=== PATIENT | female | born 1975 | race Caucasian/White ===

== ENCOUNTER 2017-05-20 19:30 | Inpatient (IN) | payer OTHER ==
--- NOTE | 2017-05-20 20:04 | EDPHY ---
H & P Stated Complaint: PSYCH EVAL - Personal History LMP (Females 10-55): Unknown Current Tetanus Diphtheria and Acellular Pertussis (TDAP): Yes - Medical/Surgical History Hx Asthma: No Hx Chronic Respiratory Disease: No Hx Diabetes: No Hx Cardiac Disease: No Hx Renal Disease: No Hx Cirrhosis: No Hx Alcoholism: No Hx HIV/AIDS: No Hx Splenectomy or Spleen Trauma: No Other PMH: DENIES MEDICAL, SURGICAL, AND PSYCH HX. - Social History Smoking Status: Never smoked Time Seen by Provider: 05/20/17 19:47 HPI/ROS: CHIEF COMPLAINT: M1 HISTORY OF PRESENT ILLNESS: 41-year-old female arrives via private vehicle on M1 hold after police were called to her domicile for concerns that she had not left her room in 5 days. She describes that she is currently going through divorce. She denies suicidal or homicidal ideations. Denies any desire to hurt herself or hurt her children. REVIEW OF SYSTEMS: A ten point review of systems was performed and is negative with the exception of the items mentioned in the HPI PAST MEDICAL & SURGICAL HISTORY: No history of diagnosed depression. No history of hospitalization. SOCIAL HISTORY: nonsmoker, no drug or alcohol use PHYSICAL EXAM (Prior to examination, patient consented to physical exam, hands were washed and my usual and customary physical exam procedures followed) 1) GENERAL: Well-developed, well-nourished, alert and oriented. Appears to be in no acute distress. 2) HEAD: Normocephalic, atraumatic 3) HEENT: Pupils equal, round, reactive to light bilaterally. Sclera anicteric. 4) NECK: Full range of motion, no meningeal signs. 5) LUNGS: Clear auscultation bilaterally, no wheezes, no rhonchi, no retractions. 6) HEART: Regular rate and rhythm, no murmur, no heave, no gallop. 7) ABDOMEN: No guarding, no rebound, no focal tenderness, negative McBurney's, 8) MUSCULOSKELETAL: No peripheral edema or discoloration. 9) BACK: No obvious trauma, no visual or palpable abnormality. 10) SKIN: No rash, no petechiae. 11) Psychiatric: Patient is oriented X 3, there is no agitation. DIFFERENTIAL DIAGNOSIS: In no particular order including but not limited to depression, suicidal ideation,homicidal ideation ([place]uit[place] Matias) Constitutional: Initial Vital Signs Temperature (C) 36.6 C 05/20/17 19:42 Heart Rate 143 H 05/20/17 19:42 Respiratory Rate 16 05/20/17 19:42 Blood Pressure 106/94 H 05/20/17 19:42 O2 Sat (%) 97 05/20/17 19:42 O2 Delivery Mode Room Air Allergies/Adverse Reactions: No Known Allergies Allergy (Unverified 05/20/17 19:41) Home Medications: Medication Instructions Recorded NK [No Known Home Meds] 05/20/17 Medical Decision Making ED Course/Re-evaluation: 8:06 p.m.: Patient is on M1 hold. She is noted to be tachycardic 143. She notes that she has not been drinking fluid for several days. Plan will be medical screening for psychiatric evaluation, IV hydration. 8:20 p.m.: Informed by nursing staff the patient pulled her IV out. 8:43 p.m.: I discussed with the patient her elevated BUN creatinine ratio of 36 , with normal creatinine.. She informs that she has not been drinking any fluids for the past 5 days "because I do not want to." I highly recommended she receive IV hydration. She then informs me that she is "allergic to saline". After a lengthy discussion with the patient she agrees to receive another IV and agrees not to remove the IV herself and consents to IV saline. Midnight: Care turned over to Dr. Ho, awaiting mental health evaluation ( Quita Matias Erin) 07:00 I assumed care of this patient from Dr. Ho at shift change. 07:38 Patient has been evaluated by mental health services and is accepted for inpatient treatment at [address] [place] [address] under the care of Dr. Fortune for acute psychosis. ([place]) Other Provider: [phone] care assumed by me from MIRTA Matias pending mental health evaluation ( Renato Ho) PHYSICIAN DOCUMENTATION: The patient was evaluated and managed by the Physician Duplicator Punch Operator and myself. I have reviewed the chart and agree with the findings and plan of care as documented. In addition, I examined the patient myself at 2200. History confirmed as locked in a bedroom for the last 4 days drinking water but no food , which she has calls on "ascetism procedure". Talks about how IV saline was "against my roman catholic." Physical findings as follows: Patient is currently alert , is able to answer questions. Admits to hearing voices but won't discuss details. Will get IV hydration and psychiatric evaluation, arrives on a mental health hold for question of inability to care for self. Appears to also possibly be psychotic. 2300: Signed out to Vic, psych evaluation pending. I am the secondary supervising physician. (Jed Tai) - Data Points Laboratory Results: Laboratory Results 05/20/17 20:00 05/20/17 20:00 05/20/17 05/20/17 05/20/17 20:00 20:00 20:00 WBC 13.66 10^3/uL H 10^3/uL (3.80-9.50) RBC 5.43 10^6/uL H 10^6/uL (4.18-5.33) Hgb 17.1 g/dL H g/dL (12.6-16.3) Hct 48.9 % H % (38.0-47.0) MCV 90.1 fL fL (81.5-99.8) MCH 31.5 pg pg (27.9-34.1) MCHC 35.0 g/dL g/dL (32.4-36.7) RDW 12.0 % % (11.5-15.2) Plt Count 385 10^3/uL 10^3/uL (150-400) MPV 8.9 fL fL (8.7-11.7) Neut % (Auto) 85.6 % H % (39.3-74.2) Lymph % (Auto) 8.8 % L % (15.0-45.0) Lincoln % (Auto) 4.8 % % (4.5-13.0) Eos % (Auto) 0.0 % L % (0.6-7.6) Baso % (Auto) 0.4 % % (0.3-1.7) Nucleat RBC Rel Count 0.0 % % (0.0-0.2) Absolute Neuts (auto) 11.69 10^3/uL H 10^3/uL (1.70-6.50) Absolute Lymphs (auto) 1.20 10^3/uL 10^3/uL (1.00-3.00) Absolute Monos (auto) 0.65 10^3/uL 10^3/uL (0.30-0.80) Absolute Eos (auto) 0.00 10^3/uL L 10^3/uL (0.03-0.40) Absolute Basos (auto) 0.06 10^3/uL 10^3/uL (0.02-0.10) Absolute Nucleated RBC 0.00 10^3/uL 10^3/uL (0-0.01) Immature Gran % 0.4 % % (0.0-1.1) Immature Gran # 0.06 10^3/uL 10^3/uL (0.00-0.10) Sodium 142 mEq/L mEq/L (135-145) Potassium 4.4 mEq/L mEq/L (3.5-5.2) Chloride 105 mEq/L mEq/L (97-110) Carbon Dioxide 14 mEq/l L mEq/l (22-31) Anion Gap 23 mEq/L H mEq/L (8-16) BUN 29 mg/dL H mg/dL (7-23) Creatinine 0.8 mg/dL mg/dL (0.6-1.0) Estimated GFR > 60 Glucose 96 mg/dL mg/dL (70-100) Calcium 10.4 mg/dL mg/dL (8.5-10.4) Beta HCG, Qual NEGATIVE Salicylates < 1.0 mg/dL L mg/dL (2.0-20.0) Urine Opiates Screen Acetaminophen < 10 mcg/mL L mcg/mL (10-30) Urine Barbiturates Ur Phencyclidine Scrn Ur Amphetamine Screen U Benzodiazepines Scrn Urine Cocaine Screen U Marijuana (THC) Screen Ethyl Alcohol < 10 mg/dL mg/dL (0-10) 05/20/17 19:34 WBC RBC Hgb Hct MCV MCH MCHC RDW Plt Count MPV Neut % (Auto) Lymph % (Auto) Lincoln % (Auto) Eos % (Auto) Baso % (Auto) Nucleat RBC Rel Count Absolute Neuts (auto) Absolute Lymphs (auto) Absolute Monos (auto) Absolute Eos (auto) Absolute Basos (auto) Absolute Nucleated RBC Immature Gran % Immature Gran # Sodium Potassium Chloride Carbon Dioxide Anion Gap BUN Creatinine Estimated GFR Glucose Calcium Beta HCG, Qual Salicylates Urine Opiates Screen NEGATIVE (NEGATIVE) Acetaminophen Urine Barbiturates NEGATIVE (NEGATIVE) Ur Phencyclidine Scrn NEGATIVE (NEGATIVE) Ur Amphetamine Screen NEGATIVE (NEGATIVE) U Benzodiazepines Scrn NEGATIVE (NEGATIVE) Urine Cocaine Screen NEGATIVE (NEGATIVE) U Marijuana (THC) Screen NEGATIVE (NEGATIVE) Ethyl Alcohol Medications Given: Discontinued Medications Sodium Chloride (Ns) 1,000 mls @ 0 mls/hr IV ONCE ONE PRN Reason: Wide Open Stop: 05/20/17 20:05 Last Admin: 05/20/17 21:04 Dose: 1,000 mls Sodium Chloride (Ns) 1,000 mls @ 0 mls/hr IV ONCE ONE PRN Reason: Wide Open Stop: 05/20/17 20:08 Last Admin: 05/20/17 20:23 Dose: Not Given Departure - Departure Disposition: [facility] IP Clinical Impression: Volume depletion, Acute psychosis Condition: Good Referrals: NONE *PRIMARY CARE P,. [Primary Care Provider] - As per Instructions
[2017-05-20] MEDS ORDERED: NS 1,000 ML IV ONE (20:07)
[2017-05-20 20:20] LABS: PLATELET COUNT 385 10^3/uL (150-400)
[2017-05-20] MEDS: NS 1,000 ML IV ONE ×3 (20:23→21:04)
[2017-05-21] MEDS ORDERED: OLANZapine DISINTEGR 10 MG TAB PO PRN (10:26)
[2017-05-21] MEDS ORDERED: MAGNESIUM HYDROXIDE 30 ML UDCUP PO PRN (10:26)
[2017-05-21] MEDS ORDERED: ACETAMINOPHEN 325 MG TAB PO PRN (10:26)
[2017-05-21] MEDS ORDERED: MAG HYDROX/AL HYDROX/SIMETH 30 ML UDCUP PO PRN (10:26)
[2017-05-21] MEDS ORDERED: LORazepam 0.5 MG TAB PO PRN (10:26)
[2017-05-21] MEDS ORDERED: OLANZapine 10 MG/2 ML VIAL IM PRN (11:35)
[2017-05-21] MEDS ORDERED: LORazepam 2 MG/ML INJ IM PRN (11:35)
[2017-05-21] MEDS ORDERED: OLANZapine 2.5 MG TAB PO SCH (11:45)
--- NOTE | 2017-05-21 12:40 | BAPA ---
[f rep st] ADMISSION PSYCHIATRIC ASSESSMENT IDENTIFICATION: This is a 41-year-old white female who lives with a roommate. She has partial custody of 2 children with her estranged . 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 CHIEF COMPLAINT: "I'm on a spiritual aescetic procedure." HISTORY OF PRESENT ILLNESS: The patient is a poor historian. Per the report from the emergency department, the patient apparently had asked her estranged to care for their 2 children over the weekend, even though it was her turn to care for the children over the weekend. The patient apparently was locked in her room, had not been eating or drinking for 4 days, had not been sleeping, had been doing strange exercises in her room, had been urinating in a jar and acting bizarre. The patient in the emergency room was placed on an M1 hold and admitted to the inpatient unit for grave disability. The patient in the ER was found to have signs of dehydration with a rapid heart rate of 143. There, she had a strange affect and pulled out her IV initially and made strange statements, but then later got IV fluids. The patient reports that she was working up until last week. She then decided to stop eating and drinking and felt that she could go 1 week without eating or drinking. She reports the purpose of this is "to clear my mind so I have clear thoughts." She describes that she is on a mission from God to do this. She would not give further details about it. She denies any plans to hurt herself or others. She reports not sleeping at all at night, or only sleeping 1-2 hours or the past week. She is guarded and not explaining why she is fasting and not drinking fluids 'it is a personal matter.' She denies feeling depressed, hopeless, or sad. She does report racing thoughts. She does report feeling anxious at times. She reports many years ago in her 20s having symptoms of depression and getting counseling. She does report over the past 20 years having episodes of elevated energy and activity and decreased need for sleep lasting weeks at a time, but without severe functional impairment and without grandiosity, hypersexuality, or reckless spending. However, the patient reports that she has been very yarsani over the past few months and been preoccupied with spiritual matters and not eating and drinking at all over the past 4-5 days. The report from the emergency room is that the patient's estranged reported the patient had been hyperreligious since December and acting strange and irrational. The patient denies any drug or alcohol abuse. She denies any thoughts to hurt others. She reports that her is caring for her 2 children. The Emergency Department contacted the patients last night. She denies a fear of weight gain, a fear of being overweight, or recently exercising excessively. Denies abusing laxatives or diuretics or forced vomitting. Reports a preoccupation with not eating. PAST PSYCHIATRIC HISTORY: The patient denies any past psychiatric hospitalizations. She denies any past suicide attempts or violence toward others. She denies any history of drug or alcohol addiction. She denies any past psychiatric medication trials. She reports getting counseling in her 20s for depression. ALLERGIES: No known drug allergies. PRIMARY CARE DOCTOR: None. PAST MEDICAL HISTORY: She does report that she was using condoms for control last year, but is not sexually active and has no plans for . She denies any chronic medical problems. She denies any traumatic brain injuries or seizures. She reports a history of surgery on her right knee. MEDICATIONS: None FAMILY HISTORY: She reports her younger sister has bipolar disorder. She denies any family history of suicide or substance abuse. She reports her parents are in [place] and they are alive and well. SOCIAL HISTORY: She was born and raised in [place] and emigrated to the [place] 4 years ago. 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 She lives with a roommate and is estranged from her . She and her have joint custody for 2 children, ages 4 and 6. The patient denies any history of childhood abuse or neglect or any trauma as an adult. She graduated high school, graduated from college, and has a PhD in chemical engineering. She reports her parents and her sister are currently in [place]. VITAL SIGNS: She is 167 cm, 51.7 kg, with a BMI of 18.4, which is underweight. In the emergency room, she had a heart rate of 143 prior to receiving 2 L of IV fluids. This morning, her blood pressure was 113/58, heart rate 86, respiratory rate 16, pulse ox 95% on room air, temperature is afebrile. EXAMINATION: She is a thin white female, in a gown. She is ambulatory. She has good eye contact. She has odd smiling and laughing at times. She has some internal preoccupation. She appears anxious at times. Her speech is regular rate and rhythm with a soft voice but she has minimal speech with only a few words at a time. Other times she has briefly rapid speech. Her thoughts are illogical and somewhat disorganized at times. She is a poor historian. She does report possibly getting a message from God. She denies that this is an auditory hallucination, but describes "it's a vibration." She appears to be delusional and that she can go a week without eating or drinking at all. She is unable to explain the purpose of this, but she reports her plan is to continue not eating and drinking for at least another 5 days. She denies suicidal or homicidal thoughts. She denies a fear of weight gain, a fear of being overweight, or recently exercising excessively. Her insight is poor. Her judgment appears impaired. She has intact cognition. She is oriented to May [id number]. She knows that she is in [place], the president is [email or web address]. She is able to do serial 7 subtractions. Her clock drawing is normal. ASSESSMENT: Bipolar disorder, type 1, most recent episode manic, severe, with psychotic features, Unspecified eating disorder - possible Anorexia Nervosa Rule out brief psychotic disorder Partner Relationship Problem - from Employment problems - missed work for 4 days due to mental illness. The overall assessment is the patient appears gravely disabled with illogical thinking and recent episode of not eating or drinking, not leaving her room, not sleeping, and urinating in a jar for 4 days. This is a major deterioration and the patient has been unable to work at all this week due to these symptoms or care for her children. The patient also appears to be at risk for dehydration and malnutrition. She had a rapid heart rate of 143 in the emergency department with signs of dehydration and required intravenous fluids. The patient has poor insight and has illogical thinking. She does appear to have some grandiosity that she is on a mission from God to not eat or drink. PLAN: 1. The patient is on an emergency M1 hold for grave disability, dated May, dated 1927 as the time. 2. The patient will be on 15-minute checks for safety precautions on the unit. 3. Requested that the nursing staff document her total p.o. fluid intake to monitor for risk of dehydration. 4. We will check vital signs twice a day to monitor for symptoms of dehydration. 5. Add on ALT, AST, CK, hemoglobin A1c, lipid panel, magnesium, phosphorus, and TSH to the blood work from the emergency room to rule out medical conditions contributing to her symptoms. 6. I discussed with the patient the risks and benefits of taking psychiatric medications for bipolar disorder in order to sleep at night and have a more clear thought process. The patient is not agreeing to take psychiatric medications at this time. Therefore, we will start emergency medications this morning. We will start offering olanzapine 2.5 mg p.o. b.i.d. If either of these doses are refused she will get olanzapine intramuscular injection 2.5 mg IM. The patient is also ordered lorazepam 1 mg t.i.d. p.r.n. for severe anxiety on the unit as an emergency medication if refusing oral lorazepam p.r.n. for anxiety. If the patient does not eat lunch today, we will discuss with the nursing staff possibly giving the patient a lorazepam injection prior to dinner. 7. We will request that the care attendant outreach the patient's estranged for collateral information and clarify that the patient's children are being taken care of. 8. The patient does not currently have an outpatient primary care doctor or psychiatrist. During the course of the hospitalization we will arrange for medical and psychiatric followup prior to discharge. /[id number]/MODL MTDD
[2017-05-21 14:23] LABS: CREATINE KINASE 97 IU/L (0-156)
--- NOTE | 2017-05-21 16:21 | BCON ---
[f rep st] BEHAVIORAL HEALTH CONSULTATION INTERNAL MEDICINE CONSULTATION DATE OF CONSULTATION: 05/21/2017 REFERRING PHYSICIAN: Rodrigo Fortune MD REASON FOR REFERRAL: Medical clearance for inpatient behavioral health stay. HISTORY OF PRESENT ILLNESS: This patient came to the emergency department yesterday on an M1 hold after police were called to her home for concerns that she had not been eating or drinking, and not left her room for 5 days. In the emergency department, she appeared to be psychotic. She was evaluated by the mental health team and admitted for further psychiatric care. Laboratory evaluation in the emergency department was also consistent with significant dehydration with a BUN of 29 and a creatinine of 0.8, and as well, she had an anion gap of 23. She received IV fluids, per report, 2 L in the emergency department. She currently is without any acute complaint, but she has an altered level of consciousness. Per Nursing, she received 2.5 mg of olanzapine approximately half an hour ago. PAST MEDICAL HISTORY: She does not have a history of medical illnesses. PAST SURGICAL HISTORY: She has had right knee surgery. MEDICATIONS: She was on no medications. SOCIAL HISTORY: She is from her and in the process of a divorce. She lives with a roommate. 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 FAMILY HISTORY: Unobtainable. REVIEW OF SYSTEMS: Very limited. She denies pain, cough, dyspnea, fevers or chills, but otherwise is uncooperative with review of systems. PHYSICAL EXAM: VITAL SIGNS: Blood pressure is 113/58, heart rate is 86, respiratory rate is 16, oxygen saturation is 95% on room air, temperature is 36.8 degrees centigrade. Her weight is 51.7 for a body mass index of 18.4. GENERAL: This is a very thin woman, appears her chronologic age, dressed in a green smock, sitting in a chair. During the exam, she sits straight up and then slumps forward in the chair, and then lowers herself to the ground and lies on the ground. With the assistance of nurse, she is transferred to the bed and she is largely unresponsive, but intermittently cooperative with requests during exam. HEENT: Extraocular movements are intact. Mucous membranes are moist. Dentition is in good condition. NECK: Supple. HEART: Regular rate and rhythm with no murmurs, rubs, or gallops. LUNGS: Clear to auscultation bilaterally. ABDOMEN: Benign. EXTREMITIES: There is no cyanosis , clubbing, or edema. Radial and dorsalis pedis pulses are diminished. NEUROLOGIC: She is intermittently alert and obtunded. She is able to move all extremities. Deep tendon reflexes are 2+ bilaterally at the biceps, patellae, and Achilles tendons. There is no tremor. There are no convulsions. There appears to be no loss of bowel or bladder control. LABORATORY STUDIES: From the emergency department, CBC revealed an elevated white count of 13.66 with no left shift. It was predominantly absolute neutrophils at 11.69. She was hemoconcentrated with an elevated hemoglobin and hematocrit at 17.1 and 48.9. CBC was otherwise overall within normal limits. Serum chemistry revealed an anion gap of 23, an elevated BUN of 29 with a creatinine of 0.8. Otherwise, renal function and electrolytes were overall within normal limits. Phosphorus was slightly high at 4.6. Hemoglobin A1c was 4.7. Liver functions were normal. Lipid panel showed a cholesterol of 195 with an HDL of 75. TSH was normal. Beta hCG was negative for . Toxicology screen in the serum was negative for salicylates, acetaminophen or ethyl alcohol, and the urine was negative for any substances of abuse. ASSESSMENT/RECOMMENDATIONS: 1. Mental health issues, pending further evaluation and management per Psychiatry and the mental health team. 2. Obtundation versus noncooperation. She seems to be more obtunded than one would expect from a small single dose of olanzapine. 3. Dehydration. 4. Anion gap, possibly starvation ketosis. I have ordered a stat CBC and BMP to reassess regarding hydration state and to rule out any possible infectious or metabolic contribution towards her altered mental status. Presentation is not consistent with seizures or meningitis/ encephalitis at present. Advise continued observation and if her mental status does not improve as would be expected with treatment of her psychiatric state, then further evaluation would be indicated. At present, I see no medical contraindications to this patient's continued stay on the inpatient behavioral health unit or to any psychiatric medications or procedures. Thank you very much for including me in the care of this patient and please do not hesitate to contact me or the hospitalist service should there be need for further medical evaluation. /[id number]/MODL MTDD
--- NOTE | 2017-05-21 17:32 | SOAPPROG ---
SOAP Progress Note Assessment/Plan: Assessment: Bipolar Disorder Manic with psychotic and catatonic features Grave Disability - patient reported not eating/drinking for several days prior to admission. Call from unit nurse on 3N, reports patient having episodic mutism and worsening disorganization. Patient received Olanzapine 2.5mg earlier without clear benefit. Concern for catatonia spectrum disorder. Plan: Patient on M-1 hold Discontinue Olanzapine EMED EMED: Ativan 1mg PO/IM TID prior to meals Monitor PO fluid intake Patient seen by hospitalist, repeat BMP ordered Consider transfer to [facility] tomorrow if signs/symptoms dehydration 05/21/17 17:27 Objective: Vital Signs Temp Pulse Resp BP Pulse Ox 36.8 C 86 16 113/58 L 95 05/21/17 09:10 05/21/17 09:10 05/21/17 09:10 05/21/17 09:10 05/21/17 09:10 - Pending Discharge Pending Discharge Within 24 Hours: No Pending Discharge Within 48 Hours: No ICD10 Worksheet Patient Problems: Problems Problem Status Onset Acute psychosis Acute Bipolar disorder, unspecified Acute Dehydration Acute Eating disorder Acute Volume depletion Acute
[2017-05-21] MEDS: LORazepam 0.5 MG TAB PO SCH (17:53)
[2017-05-21 19:14] LABS: PLATELET COUNT 262 10^3/uL (150-400)
[2017-05-22] MEDS ORDERED: LORazepam 1 MG TAB PO SCH (08:00)
[2017-05-22] MEDS ORDERED: LORazepam 2 MG/ML INJ IM SCH (08:00)
--- NOTE | 2017-05-22 08:07 | SOAPPROG ---
SOAP Progress Note Assessment/Plan: Assessment: Catatonia Bipolar Disorder Manic with psychotic features Low weight Grave Disability - patient reported not eating/drinking for several days prior to admission. Patient has a family history of bipolar disorder, history of depression, probable hypomanic and hyperreligious symptoms in past few months, was not eating or drinking fluids or sleeping for several days with disorganized behavior prior to admission. Patient had catatonic symptoms after receiving Olanzapine 2.5mg on 05/21/17. Patient now able to sleep after receiving IM Ativan in PM 05/21/17 on [facility] and this AM 05/22/17 in [facility] ER Plan: Short Term Certification for grave disability. If having improved insight and self-care will discuss voluntary treatment EMED DAY #2 Ativan 2mg PO/IM TID with meals Urinalysis to rule out UTI (elevated WBC and incontinence), straight cath with medical restraint if needed due to altered mental status Monitor PO fluid intake Consider transfer to [facility] tomorrow if signs/symptoms dehydration 05/22/17 08:03 Subjective: CC: Nonverbal. Patient sleeping and not awake for verbal and tactile stimuli. Objective: Vital Signs Temp Pulse Resp BP Pulse Ox 36.8 C 86 16 113/58 L 95 05/21/17 09:10 05/21/17 09:10 05/21/17 09:10 05/21/17 09:10 05/21/17 09:10 Laboratory Results 05/21/17 17:30 05/21/17 17:30 05/21/17 05/22/17 05/23/17 05:59 05:59 05:59 Intake Total 0 Balance 0 Patient is thin lying in bed, sleeping soundly. Not waking to verbal or mild tactile stimuli. Staff report patient received Olanzapine 2.5mg PO yesterday afternoon. Later was mute, catatonia, posturing in corner, disorganized behavior. Later got follow up CBC (elevated WBC 15), BMP with elevated BUN and acidosis. Got IM Ativan yesterday PM with minimal improvement. Later found lying on floor unresponsive early this AM and was sent to ER. There had Head CT, 2 liters IVF , and Ativan 1mg IM, and readmitted to [facility]. - Time Spent With Patient Time Spent With Patient: 5 minutes - Pending Discharge Pending Discharge Within 24 Hours: No Pending Discharge Within 48 Hours: No ICD10 Worksheet Patient Problems: Problems Problem Status Onset Acute psychosis Acute Bipolar disorder, unspecified Acute Dehydration Acute Eating disorder Acute Volume depletion Acute Catatonia Acute
[2017-05-22 08:17] VITALS: BP 106/64; PULSE 70; RESP 14; TEMP 97.7; O2SAT 98
[2017-05-22] MEDS: LORazepam 0.5 MG TAB PO SCH (08:50)
--- NOTE | 2017-05-22 15:01 | BDS ---
[f rep st] BEHAVIORAL HEALTH DISCHARGE SUMMARY IDENTIFICATION: This is a 41-year-old white female who lives with a roommate. 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 She is originally from [facility]. She is currently from her , [place] Ramos who is currently caring for the patient's 2 children, ages 4 and 6. Her brother from [place] arrived in [place] after the patient was hospitalized. REASON FOR ADMISSION: Please see psychiatric assessment from yesterday, May 21, 2017. The patient apparently has a history of having depressive and hypomanic symptoms in the past. She and her in December 2016 and are in the process of a divorce that is supposed to be finalized at the end of May. The patient apparently has been having hypomanic symptoms with erratic behavior and hyperreligious behavior. 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 The patient apparently was taken to the emergency room on May 20 because between Thursday and May 20, the patient apparently did not sleep at all, was not eating, not drinking, isolating to her room, and acting bizarre. In the ER the evening of May 20, the patient was disorganized, pulled out IV, was tachycardic with a heart rate of 143. She later got 2 L of fluid IV. The patient then was admitted to the unit the morning of May 21. The patient then presented as being hypomanic but disorganized and a poor historian with delusions that she could not either or drink for a week as a mission from God. She had an initially euphoric and odd affect and strange smiling. She was initially ambulatory but thin. She had poverty of information with her speech. She had disorganized behavior on the unit including gathering up numerous belongings and putting them in trash cans. She also refused to eat or drink on the unit. The patient was initially offered 2.5 mg of olanzapine as an emergency medication due to grave disability from mental illness causing inability to eat or drink. The patient was given 2.5 mg of olanzapine the afternoon of May 21. Approximately 2 hours later the staff reported that the patient had developed catatonic symptoms where she was mute, staring, unresponsive, later was crouched in a corner, staring at the wall and not following directions. The patient had a physical exam by the hospitalist, had a followup blood work for dehydration that showed continued elevated BUN with a mild acidosis, but a normal sodium level. The patient was given IM Ativan 1 mg with no improvement. Later in the evening, she was found to be lying on the floor unresponsive to sternal rub and mute. She was then sent back to the [facility] Emergency Department in the early hours of May 22. There, she got another 2 L of IV fluids, 1 mg of Ativan and then returned to [address] [place] [address]. Between arriving on [address] [place] [address] this morning at 8 a.m. at approximately 11:30 today, the patient continued to be completely mute, unable to eat or drink, unable to stand, unable to follow simple directions. She also appeared to have some flushing and sweating concerning either for infection or neuroleptic malignant syndrome. The patient due to the severity of her symptoms and lack of improvement with at least 2 mg of IM Ativan in a 12 hour period and concern of severe catatonia versus delirium from an infection, the patient was transferred back to the [facility] Emergency Department. There was concern that she may have an infection as she has an elevated white blood cell count, however, this may be just secondary to catatonia. CONDITION ON DISCHARGE: She is a thin white female lying in bed. She appears flushed and slightly sweaty. She is unresponsive and mute. She is not able to stand, eat or drink. Unable to assess thought content. DISCHARGE DIAGNOSES: Catatonia, unspecified bipolar disorder, rule out delirium from medical condition such as an infection. Also, dehydration, elevated white blood cell count, acidosis. DISCHARGE MEDICATIONS: I recommended to ER physician Dr. Buenrostro that the patient will need IV fluids for dehydration along with IV lorazepam 1 mg q.6 hours for a total of 4 mg a day of IV lorazepam. If the patient does not have an IV she could be offered 2 mg p.o. or IM three times daily with meals. We also recommended the patient have an evaluation for infection such as urinary tract infection or a neurology evaluation to rule out encephalitis. DISPOSITION: The patient is being transferred by ambulance to [facility] Emergency Department for probable admission to the intensive care unit at [facility]. LEGAL STATUS: The patient was on an M1 hold and then placed on short-term certification today May 22, 2017. This was discussed with consult psychiatrist Dr. Ramos. /[id number]/MODL MTDD
== END 2017-05-22 11:50 | disposition short-term general hospital (02) | DRG 885 ==
LOC: BBEH 05-21 09:05
PROVIDERS: ADMIT Psychiatry & Neurology Psychiatry
DX: F31.2 Bipolar disorder, current episode manic severe with psychotic features (principal); F06.1 Catatonic disorder due to known physiological condition; E86.0 Dehydration; D72.828 Other elevated white blood cell count; E87.2 Acidosis; F50.9 Eating disorder, unspecified; Z81.8 Family history of other mental and behavioral disorders; Z63.5 Disruption of family by separation and divorce
CPT/HCPCS: 80305; G0480; J2060

== ENCOUNTER 2017-05-22 01:58 | Inpatient (IN) | payer OTHER ==
[2017-05-22] MEDS ORDERED: AMMONIA AROMATIC 1 EACH AMP IH ONE (02:03)
--- NOTE | 2017-05-22 02:14 | EDPHY ---
H & P Stated Complaint: patient @ [facility] for mental health issues. patient in a unresponive state. Time Seen by Provider: 05/22/17 02:04 HPI/ROS: Chief Complaint: Unresponsive HPI: 41-year-old woman who is at [address] [place] [address] for depression. She was admitted there today. Patient had locked herself in the bathroom for 4 days , refusing to eat or drink. Patient was found on the floor unresponsive this morning and sent here for further evaluation. Patient is breathing on her own. No obvious signs of trauma. She is not answering any questions. ROS: Unobtainable secondary to patient being unresponsive PMH: Depression Social History: No smoking, no alcohol, no recreational drug use Family History: non-contributory Physical Exam: Gen: Appears to be unconscious. She is wincing to ammonia tablets under her nose. She is not localizing to pain however her hand does not hit her face when dropped from above. HEENT: Nose: no rhinorrhea Eyes: PERRLA, EOMI Mouth: Moist mucosa Neck: Supple, no JVD Chest: nontender, lungs clear to auscultation Heart: S1, S2 normal, no murmur Abd: Soft, non-tender, no guarding Back: no CVA tenderness, no midline tenderness Ext: no edema, non-tender Skin: no rash Neuro: CN II-XII intact, Sensation grossly intact, Strength 5/5 in bilateral upper and lower extremities - Personal History LMP (Females 10-55): Unknown Current Tetanus/Diphtheria Vaccine: Unsure Current Tetanus Diphtheria and Acellular Pertussis (TDAP): Unsure - Medical/Surgical History Hx Asthma: No Hx Chronic Respiratory Disease: No Hx Diabetes: No Hx Cardiac Disease: No Hx Renal Disease: No Hx Cirrhosis: No Hx Alcoholism: No Hx HIV/AIDS: No Hx Splenectomy or Spleen Trauma: No Other PMH: DENIES MEDICAL, SURGICAL, AND PSYCH HX. - Social History Smoking Status: Never smoked Constitutional: Initial Vital Signs Temperature (C) 37.1 C 05/22/17 02:02 Heart Rate 87 05/22/17 02:02 Respiratory Rate 16 05/22/17 02:02 Blood Pressure 120/77 05/22/17 02:02 O2 Sat (%) 99 05/22/17 02:02 O2 Delivery Mode Room Air Allergies/Adverse Reactions: No Known Allergies Allergy (Unverified 05/20/17 19:41) Home Medications: Medication Instructions Recorded NK [No Known Home Meds] 05/20/17 Medical Decision Making - Diagnostics Imaging Results: CT scan of the head is negative per Dr. Pineda. Imaging: Discussed imaging studies w/ call center operator Radiologist ED Course/Re-evaluation: 41-year-old woman presenting from the psychiatric loera unresponsive. No obvious signs of trauma. She is wincing to noxious stimuli of ammonia under her nose. She is also observed to swallow on occasion. She will not answer any questions or speak. Will obtain a CT scan to rule out any obvious intracranial pathology. Patient appears catatonic. She has a flaccid paralysis. Could be described as "waxy". She does not have a lead pipe rigidity. She is responding to noxious stimuli. She is not febrile. I have discussed the case with Dr. Ramos, psychiatry. She is requesting IV fluid hydration as the patient has not been drinking. This has been ordered. She is also requesting Ativan, 1 mg IM. She has reviewed the patient's record in the psychiatric admission and is in agreement that symptoms are consistent with catatonia. She is accepting the patient transfer back to the [address] [place] [address] at this time. - Data Points Laboratory Results: Laboratory Results 05/22/17 03:15 05/22/17 03:15 05/22/17 05/22/17 03:15 03:15 WBC 11.79 10^3/uL H 10^3/uL (3.80-9.50) RBC 4.08 10^6/uL L 10^6/uL (4.18-5.33) Hgb 13.0 g/dL g/dL (12.6-16.3) Hct 37.6 % L % (38.0-47.0) MCV 92.2 fL fL (81.5-99.8) MCH 31.9 pg pg (27.9-34.1) MCHC 34.6 g/dL g/dL (32.4-36.7) RDW 12.2 % % (11.5-15.2) Plt Count 204 10^3/uL D 10^3/uL (150-400) MPV 8.9 fL fL (8.7-11.7) Neut % (Auto) 77.8 % H % (39.3-74.2) Lymph % (Auto) 11.3 % L % (15.0-45.0) [place] % (Auto) 10.1 % % (4.5-13.0) Eos % (Auto) 0.2 % L % (0.6-7.6) Baso % (Auto) 0.3 % % (0.3-1.7) Nucleat RBC Rel Count 0.0 % % (0.0-0.2) Absolute Neuts (auto) 9.18 10^3/uL H 10^3/uL (1.70-6.50) Absolute Lymphs (auto) 1.33 10^3/uL 10^3/uL (1.00-3.00) Absolute Monos (auto) 1.19 10^3/uL H 10^3/uL (0.30-0.80) Absolute Eos (auto) 0.02 10^3/uL L 10^3/uL (0.03-0.40) Absolute Basos (auto) 0.03 10^3/uL 10^3/uL (0.02-0.10) Absolute Nucleated RBC 0.00 10^3/uL 10^3/uL (0-0.01) Immature Gran % 0.3 % % (0.0-1.1) Immature Gran # 0.04 10^3/uL 10^3/uL (0.00-0.10) Sodium 146 mEq/L H mEq/L (135-145) Potassium 4.7 mEq/L mEq/L (3.5-5.2) Chloride 114 mEq/L H mEq/L (97-110) Carbon Dioxide 20 mEq/l L mEq/l (22-31) Anion Gap 12 mEq/L mEq/L (8-16) BUN 27 mg/dL H mg/dL (7-23) Creatinine 0.6 mg/dL mg/dL (0.6-1.0) Estimated GFR > 60 Glucose 72 mg/dL mg/dL (70-100) Calcium 8.5 mg/dL mg/dL (8.5-10.4) Total Bilirubin 1.5 mg/dL H mg/dL (0.1-1.4) Conjugated Bilirubin 0.4 mg/dL mg/dL (0.0-0.5) Unconjugated Bilirubin 1.1 mg/dL mg/dL (0.0-1.1) AST 33 IU/L IU/L (14-46) ALT 27 IU/L IU/L (9-52) Alkaline Phosphatase 39 IU/L IU/L (38-126) Total Protein 6.0 g/dL L g/dL (6.3-8.2) Albumin 3.6 g/dL g/dL (3.5-5.0) Medications Given: Discontinued Medications Sodium Chloride (Ns) 1,000 mls @ 0 mls/hr IV ONCE ONE; Wide Open PRN Reason: Protocol Stop: 05/22/17 04:11 Last Admin: 05/22/17 04:15 Dose: 1,000 mls Sodium Chloride (Ns) 1,000 mls @ 0 mls/hr IV ONCE ONE; Wide Open PRN Reason: Protocol Stop: 05/22/17 04:58 Last Admin: 05/22/17 05:06 Dose: 1,000 mls Lorazepam (Ativan Injection) 1 mg IM EDNOW ONE Stop: 05/22/17 04:54 Last Admin: 05/22/17 05:06 Dose: 1 mg Departure - Departure Disposition: [facility] IP Clinical Impression: Catatonia Condition: Good Referrals: Patient,NotPresent [Primary Care Provider] - As per Instructions
[2017-05-22 03:23] LABS: PLATELET COUNT 204 10^3/uL (150-400)
[2017-05-22] MEDS ORDERED: NS 1,000 ML IV ONE ×2 (04:10→04:57)
[2017-05-22] MEDS ORDERED: LORazepam 2 MG/ML INJ IM ONE (04:53)
[2017-05-24] MEDS: LORazepam 0.5 MG TAB PO SCH (20:57)
[2017-05-25] MEDS: LORazepam 0.5 MG TAB PO SCH ×4 (06:04→20:45)
[2017-05-25] MEDS ORDERED: LORazepam 2 MG/ML INJ IM PRN (07:42)
[2017-05-25 08:17] LABS: CREATINE KINASE 361 IU/L (0-156)
--- NOTE | 2017-05-25 10:06 | BAPA ---
[f rep st] ADMISSION PSYCHIATRIC ASSESSMENT DATE OF SERVICE: 05/25/2017 IDENTIFICATION: This is a 41-year-old, , white female, who alternatively lives with her , Hitesh Dotson, phone number [phone], or with her friend, Mirna Perez, phone number [phone]. The patient's brother Naveen lives in [place], phone number [phone]. CHIEF COMPLAINT: "I am good, how are you?" HISTORY OF PRESENT ILLNESS: The patient is a poor historian with limited information. She currently denies feeling depressed, hopeless, sad, or suicidal. She denies feeling agitated, irritable or anxious. She denies hearing voices or having paranoia. She recognizes that she needs to be eating and drinking in order to get discharged from the hospital. She is unable to explain the events that led to her hospitalization. She reports not wanting to be in the hospital or take medication however. Per the chart from her admission last week and [facility], as well as discussion with the patient's , Hitesh, the patient apparently had a history of change in symptoms and behavior over the past 6 months to 9 months. The patient has been more anxious, spending more time at work, having more difficulty sleeping. Apparently in December 2016, she developed hyper yarsanism thoughts that she was on a mission from God to have a child and save the world. She also had a change in personality. This led to a separation where she was spending part of the time with her and their 2 children, and part of the time staying with her friend, Mirna. The patient apparently, prior to the emergency room visit on May 20, apparently she had gone several days staying in her room, not sleeping, not eating, not drinking fluids and acting strange. The patient was evaluated on the inpatient unit on May 21. At that time, she reported having a special connection from God, being on a special mission to not eat or drink for at least a week. She also had an odd euphoric affect with poor insight, and seemed illogical and had disorganized behavior. She was started on olanzapine 2.5 mg on May 21, and was on an M1 hold. On May 22, the patient had catatonic symptoms with mutism and unresponsiveness. She was placed on a short-term certification and then transferred back to [facility] to the Emergency Department. There she was then admitted to the intensive care unit for management of dehydration and catatonia. Over the weekend of Thursday, May 22; Thursday, May 23; and then Thursday, May 24; the patient received IV fluids for dehydration. She received lorazepam 1 mg IV 4 times a day for catatonia. The patient's dehydration was treated. The patient's catatonia improved. The patient was then alert and able to converse. She did report over at [facility] that she continued to have a voice from God telling her not to eat. She also made strange statements or paranoid statements about having cancer. She also reportedly superficially cut her left arm with a butter knife. The patient was then transferred back to [address] [place] [address] yes, May 24. Last night she reportedly drank 1500cc of fluid and ate an orange and an apple. This morning, the patient has poor insight into the reasons for hospitalization. She is able to explain that she needs to eat and drink in order to be discharged from the hospital. She denies auditory hallucinations or paranoia about her body currently. PAST PSYCHIATRIC HISTORY: The patient had no prior psychiatric hospitalizations before last week. She did apparently have counseling for depression in her 20s. Her reports that the patient has had brief intense mood swings but not sustained meeting criteria for bipolar disorder. She does appear to have developed odd beliefs that started in December 2016 that appear to be grandiose and delusional. The patient has no history of drug or alcohol abuse, suicide attempts or violence toward others. ALLERGIES: No known drug allergies. MEDICAL HISTORY: She has a history of having surgery on her right knee. She denies any traumatic brain injury or seizures or any chronic medical problems or taking any medications prior to admission. MEDICATIONS: Currently, Ativan 1 mg by mouth 4 times a day. She was receiving Ativan 1 mg IV 4 times a day in the intensive care unit over the past few days, along with IV fluids. FAMILY HISTORY: Her younger sister has bipolar disorder. Her parents are in [place] and are alive and well. She denies a family history of suicide or substance abuse. SOCIAL HISTORY: She was born and raised in [place] and immigrated to the [place] several years ago. 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 She is currently estranged from her , Hitesh Dotson, phone number [phone]. They have 2 children, ages 4 and 6. He is currently caring for them. The patient has alternatively been staying with him or staying with her friend, Mirna Perez, who also works in the same lab as her. The patient reports her parents and her sister are in [place]. She denies childhood abuse or neglect or any history of trauma. VITAL SIGNS: She is 167 cm, 50.8 kg with a BMI of 18.1. This morning her vital signs; blood pressure 92/50, heart rate 93, respiratory rate 16, pulse ox 91% on room air. She is afebrile. LABS: On May 24, 2017, she had a white blood cell count 5.6, hemoglobin 12.8 , platelet count 195. Sodium 139, potassium 3.9, creatinine 0.5, glucose 115, but she may have been on IV dextrose at the time. Hemoglobin A1c was 4.7, calcium 8.2, phosphorus 4.6, magnesium 1.8, total bilirubin 1.2, AST 28, ALT 32 , alkaline phosphatase 36. An add on CK level is 361, triglycerides 135, LDL 93 , HDL 75. B12 was greater than a 1000, TSH 3.5. Serum beta HCG was negative. Urine drug screen was negative. She had a urinalysis on May 22 that showed 1+ protein, 3+ blood with numerous red blood cells and white blood cells, but only trace bacteria, negative leukocyte esterase. This was determined to be related to menstrual blood contamination. MENTAL EXAM: She is alert, thin, white female who is ambulatory slowly. She is cooperative. She has good eye contact. Her speech is soft with few words. Her mood is "I am good." Her affect is odd with some brief smiling and brief laughing but limited content. Her thoughts are briefly organized with minimal information. She denies thoughts to hurt herself or others. She denies paranoia or hallucinations today. She does report that she is willing to eat or drink today, which is a change from previous. She scored 28/30 on the SLUMS exam, got 3/5 on the 5 word recall, but otherwise had intact cognition. Her insight is poor. Her judgment appears to be questionable. ASSESSMENT: Catatonia, Brief psychotic disorder. Cyclothymia Rule out bipolar disorder with psychotic and catatonic features. Rule out eating disorder or anorexia nervosa. Partner relationship problem with separation from . The overall assessment is the patient had delusional thinking with a history of of brief depressive and hypomanic symptoms consistent with a diagnosis of cyclothymia, but developed a marked deterioration in functioning starting approximately Thursday, May 16, and then had approximately 4-5 days of no sleep, not eating, not drinking, and disorganized behavior. Unclear if the patient had a manic episode prior to the admission. The patient developed catatonic symptoms late May 21 after taking 2.5 mg of olanzapine. Her catatonia appears to have resolved during her hospitalization at [facility]. There, she got IV lorazepam 1 mg 4 times a day along with IV fluids for dehydration. The patient appears to be at high risk for dehydration as she has recently had command hallucinations or delusions to not eat or drink. However, the patient's catatonia appears to have resolved. The patient reportedly drank 1500 cc of fluid yesterday after being readmitted to [address] [place] [address]. She also reportedly ate an apple and an orange last night as well. This morning she minimizes psychotic symptoms, which is an improvement, but does appear disorganized at times. PLAN: 1. The patient is on a short-term certification that was started on May 22, 2017, here on the unit. This will be terminated as of 05/22/17 as patient went to the [facility] and was readmitted to [facility] yesterday on an M-1 hold. Will file a new short term certification today 05/24/17 for grave disability. 2. We will apply for court-ordered medications to ensure that the patient continues to comply with lorazepam, particularly on the inpatient unit and possibly either an antipsychotic or a mood stabilizer in the future. 3. The patient is on suicide precautions, every 15 minutes, as she reportedly superficially cut on her left arm with a butter knife in the ICU, but the patient denies any current thoughts to hurt herself or others. 4. The patient's CK level was elevated at 360 as an add-on to the [facility] blood work. We will check this along with a BMP and phosphorus tomorrow morning to assess for either rhabdomyolysis or dehydration. 5. The patient is on close observation on the unit to monitor her p.o. fluid intake and food intake as well as to give her prompts for eating and drinking, as she may or may not have continued mild catatonia symptoms. 6. If the patient is consistently not having catatonia, we will consider starting a very low dose of an antipsychotic or a mood stabilizer depending on her symptomatology on the unit. Today ordered EMERGENCY MEDICATIONS DAY ONE: Lorazepam 1mg PO/IM four times a day. 7. I reviewed the assessment and plan with the patient's on the phone, who is currently caring for her children. I was unable to reach her roommate Mirna on the phone. ADDENDUM: The patient did receive a neurology evaluation at [facility] that was negative for an acute neurological disorder. She had a head CT May, that was within normal limits. She had an EKG on May 22 that showed a heart rate 93, QTc interval 443 milliseconds, sinus rhythm with right axis deviation. If the patient is not clearly improving over the next 24-48 hours, we will consider an ECT consultation by Dr. Fortune on the inpatient unit. /[id number]/MODL MTDD
--- NOTE | 2017-05-25 11:39 | SOAPPROG ---
SOAP Progress Note Assessment/Plan: Assessment: 05/24/17 18:39 Reviewed records. Discussed case with Dr. Catalan on 05/22/17 after pt transferred to ICU for IVF. Pt in ICU yesterday, returned to 3N today after discussed case with hospitalist. Spoke with nsg staff, and placed pt on LOS upon arrival to unit based on her self harm with plastic knife making superficial cuts to forearm while in ICU, and also because was found down in room on 3N prompting ED transfer and evaluation last week. Also spoke with Dr. Espitia on 05/23 about this pt and her ICU course. she had been receiving Ativan 1mg QID IV for her catatonia while at [facility], as per primary treatment team plan. Met with patient after return to unit from 2days in ICU for IVF. Since return to unit, pt was sitting for prolonged period upright in chair, staring out window, with sitter at door. Did, however, readily engage in interview, turning chair to appropriately face interviewer. Pt was communicative verbally, with good eye contact. Admitted to experiencing AH and periodically politely asking MD to "wait" before she responded to certain questions, closing eyes and turning head for several seconds, then responding to question, as if consulting her AH or waiting for communication from internal stimuli. Did actually admit experiencing AH during interview. Regarding her fasting, pt stated, "I need to do this for another week" (after long pause with eyes closed, seeming to be receiving internal message). Denied SI. States scraping on L forearm w/plastic knife while in ICU was in attempt to "feel pain". Denied any hx of self harm or current thoughts. Denied thoughts to harm others. I/J both poor. Pt then asked if drinking H2O would satisfy psychiatric team and allow for d/c home. Stated she hoped this would allow for d/c and then could she just attend oupt psych treatment. Does not plan to take medications, does not feel she needs any. Discussed options with patient, recommendations, and likelihood of Emeds needing to be resumed if continues not eating/drinking. Denied any physical complaints. PLAN: Schedule Ativan 1mg po QID. Low threshold to start on Emeds given her hx of catatonia and resulting danger to self with no oral intake for days. Continue on [place] Brother and friend came to visit. Objective: Vital Signs Temp Pulse Resp BP Pulse Ox 36.6 C 93 16 92/50 L 91 L 05/25/17 06:00 05/25/17 07:08 05/25/17 07:08 05/25/17 07:08 05/25/17 07:08 05/24/17 05/25/17 05/26/17 05:59 05:59 05:59 Intake Total 0 200 Balance 0 200 - Time Spent With Patient Time Spent With Patient: 45min - Pending Discharge Pending Discharge Within 24 Hours: No Pending Discharge Within 48 Hours: No ICD10 Worksheet Patient Problems: Problems Problem Status Onset Acute psychosis Acute Bipolar disorder, unspecified Acute Catatonia Acute Dehydration Acute Eating disorder Acute Volume depletion Acute
[2017-05-26] MEDS: LORazepam 0.5 MG TAB PO SCH ×2 (04:43→12:58)
[2017-05-26 09:46] LABS: CREATINE KINASE 116 IU/L (0-156)
[2017-05-26] MEDS ORDERED: LITHIUM CARBONATE 300 MG CAP PO ONE (10:23)
--- NOTE | 2017-05-26 10:30 | SOAPPROG ---
SOAP Progress Note Assessment/Plan: Assessment: Catatonia Bipolar Disorder with psychotic features Superficial self-inflicted lacerations to left wrist Patient had mild catatonia symptoms yesterday, but overall is improved with eating and drinking fluids. Patient appears illogical with recent severe insomnia and hyper-religiosity, along with recent severe dysphoria and self-harm. Plan: Start [place] 300mg once now, 300mg QHS scheduled Reviewed risks of lithium, including risk of hypothyroidism, renal disease, defects, delirium, drug interactions. Handout given. Check [place] level and recheck BMP on 05/28/17 due to risk of dehydration Monitor PO intake Reverse room restriction, sleep in video open seclusion room to monitor behavior and risk of self-harm; finger foods, no utensils EMED DAY TWO Ativan 1mg four times a day PO/IM for catatonia 05/26/17 10:32 Subjective: CC: "Just fine" Patient unable to explain reasons for admission. With structured questions reports her sister in [place] took [place] for bipolar disorder in the past. Reports sleeping well. Reports 5-6 days prior to admission having a revelation from God that she was on a mission to 'purify my mind and my body.' Reports not sleeping for several days. Denies racing thoughts but reports feeling distracted. Reports not wanting to talk to her family and friends. Reports superficial cutting on wrist that occurred during [facility] stay was 'too feel pain' but is unable to explain further. Doesn't agree that she has mental illness or needs treatment. Objective: Vital Signs Temp Pulse Resp BP Pulse Ox 36.6 C 112 H 16 110/72 95 05/26/17 00:30 05/26/17 00:30 05/26/17 00:30 05/26/17 00:30 05/26/17 00:30 Laboratory Results 05/26/17 03:30 05/25/17 05/26/17 05/27/17 05:59 05:59 05:59 Intake Total 0 2450 Balance 0 2450 Alert WF. Thin. Healing abrasions left wrist. Speech soft few words. Odd smiling with some internal preoccupation. Mood 'just fine' Thoughts briefly organized but guarded. Reports being on a mission from God 'to purify my mind and my body.' Denies AH or paranoia. Denies SI or violent thoughts. Poor insight and impaired judgment. Staff report patient slept 8 hours. Ate breakfast and dinner with PM snack but no lunch. Drinking fluids and cooperated with AM blood draw. Yesterday late afternoon had brief period of mutism and unresponsiveness. BMP WNL (Na 144 but BUN WNL) CK WNL - Time Spent With Patient Time Spent With Patient: 25 minutes - Pending Discharge Pending Discharge Within 24 Hours: No Pending Discharge Within 48 Hours: No ICD10 Worksheet Patient Problems: Problems Problem Status Onset Catatonia Acute Bipolar disorder, unspecified Acute Dehydration Acute Eating disorder Acute Volume depletion Acute Acute psychosis Acute
[2017-05-26] MEDS: LORazepam 2 MG/ML INJ IM PRN ×2 (11:30→12:30)
[2017-05-26] MEDS ORDERED: LORazepam 2 MG/ML INJ IM PRN (13:40)
[2017-05-26] MEDS: LORazepam 1 MG TAB PO SCH ×2 (15:50→21:00)
[2017-05-26] MEDS: LITHIUM CARBONATE 300 MG CAP PO SCH (21:00)
[2017-05-27] MEDS: LORazepam 1 MG TAB PO SCH ×3 (08:22→21:24)
[2017-05-27] MEDS ORDERED: LORazepam 2 MG/ML INJ IM PRN (09:06)
--- NOTE | 2017-05-27 09:26 | SOAPPROG ---
SOAP Progress Note Assessment/Plan: Assessment: Catatonia Bipolar Disorder with psychotic features Superficial self-inflicted lacerations to left wrist Patient had waxing/waning catatonia symptoms yesterday, tolerating increased Ativan and 1st dose of [place] so far. Plan: Short Term Certification 05/25/[address] ordered medication letter today 05/27/17 (antipsychotics, lorazepam ) Offer [place] 300mg PO QHS Check [place] level and recheck BMP, PO4, CK on 05/28/17 due to risk of dehydration Monitor PO intake Reverse room restriction, sleep in video open seclusion room to monitor behavior and risk of self-harm; finger foods, no utensils EMED DAY #3 Ativan 2mg PO/IM TID Request second opinion from Dr. Fortune: emergency medications and possible emergency ECT 05/27/17 09:26 Subjective: CC: "Indifferent" Patient unable to explain behavior yesterday, including posturing and mutism. Reports this AM not having anxiety or paranoia or hallucinations. Denies severe mood swings or irritability. No side effects from [place] and Ativan and reports sleeping well. Agrees to continue lithium and ativan and try to eat and drink today. Agrees to meet with brother, friends, and if they visit. Unable to explain events that led to hospitalization. Reports she doesn 't believe that she has a mental illness. Denies feeling that she is currently on a mission from [employer] to fast or have a child. Objective: Vital Signs Temp Pulse Resp BP Pulse Ox 36.7 C 77 15 99/57 L 96 05/27/17 00:30 05/27/17 00:30 05/27/17 00:30 05/27/17 00:30 05/27/17 00:30 Laboratory Results 05/26/17 03:30 05/26/17 05/27/17 05/28/17 05:59 05:59 05:59 Intake Total 2450 1302 Output Total 0 Balance 2450 1302 Thin WF, ambulatory, healing superficial wound left wrist. Speech soft, few words. Restricted affect. Mood 'indifferent' Thoughts brief with little detail. Guarded attitude. Denies SI or HI or AH or paranoia. Memory limited regarding recent events, poor insight. Patient refused 1200 Ativan 1mg PO yesterday, got 1mg IM at 1230. Patient was compliant with 2mg PO Ativan yesterday afternoon and bedtime. Patient refused offer of lithium yesterday at 1200. Later took HS dose. Staff report yesterday patient had 1300 cc fluid. Episodic mutism, posturing, alternatively wanted to speak to brother//friend then later refusing to meet with them. This AM patient drank >500cc fluid ate muffin. - Time Spent With Patient Time Spent With Patient: 15 minutes - Pending Discharge Pending Discharge Within 24 Hours: No Pending Discharge Within 48 Hours: No ICD10 Worksheet Patient Problems: Problems Problem Status Onset Acute psychosis Acute Bipolar disorder, unspecified Acute Catatonia Acute Dehydration Acute Eating disorder Acute Volume depletion Acute
--- NOTE | 2017-05-27 15:55 | SOAPPROG ---
SOAP Progress Note Assessment/Plan: Assessment: Plan: Subjective: Pt is seen at the request of Dr. Catalan for a second option re: E-meds. I discussed the case at length with Dr. Catalan and reviewed the chart. She is a 41 y/o CF with no pertinent psychiatric hx prior to December of 2016. At that times, she began experiencing some intense pentecostal/spiritual beliefs that were out of character for her. She believed she, her friends and her had been chosen to be spiritual leaders and "save the world." She became increasingly grandiose and hyperreligious and began abdicating her roles within her family and work. This lead to separation from her and estrangement of family and friend group. She ultimately filed for divorce, in part due to belief she was to conceive a child with God. [employer], she had locked herself in her room for 4-5 days without eating or drinking or leaving to use the bathroom. Her called EMS who brought her to the hospital for evaluation. She was evaluated and placed on an M-1 hold. She was initially admitted to the medical service for evaluation and rehydration and then transferred to Behavioral Health when cleared. While in the ICU, she engaged in self-harming, using plastic silverware to cut her arm. After arriving on 3N, she was noted to exhibit obvious signs of catatonia inc: catalepsy and mutism as well as continued grandiose and hyperreligious thoughts. She was given one dose of Zyprexa 2.5mg for psychosis and agitation and her condition worsened greatly. She was then placed on increasing doses of scheduled Ativan with good effect. I was asked to see her for diagnostic impression and consideration of emergency ECT. I interviewed the patient in open-door seclusion on 3N. She states to me that she is "very happy" in the seclusion room "because I am not a social person right now and I need privacy to continue my contemplation." She spends most of her time in this room, though has tried to interact with others. She reportedly went to group yesterday evening and participated in a limited manner and then became cataleptic, standing in one position for about 45 minutes, staring at the bookshelf. When asked about this, she states, "I was just in really heavy contemplation." She states she can pull herself out of that state if she wants to, "I just don't because it is important for me to complete my journey." She states she is "almost to the third level" and hopes to "complete this journey soon." When asked if she believes she has a mental illness, she states she does not. She focuses on the need to "contemplate", insisting she will eventually complete this process. MSE: Marginally groomed, guarded, but interactive. She is sitting on the edge of the bed with her arms hanging straight down to her sides and her head hanging down to her chest. She appears unresponsive, but sits up immediately and engages me when I say her name. She is smiling and makes good eye contact. She is appropriately conversant and able to discuss the events preceding admission, her treatment here, her family relationships. Her speech is low in tone, though spontaneous and normal in production rate and flow. Her affect is euthymic, well-modulated, inc: appropriate smiling and recognition of humor. Her mood is described as "good." TP is organized at times, though crafts most answers to question around her spiritual belief framework. Her TC reveals preoccupation with somatic and spiritual beliefs, IOR's and possible AH's. She is A&Ox3, not knowing the date. Her attention and concentration are adequate to the interview. She Denies SI/HI/. Her reality testing, insight and judgement appear to be very poor. IMP: Bipolar I D/o, manic, severe, with mixed features. Retarded catatonia. REC: Agree with current plan to focus on treatment of catatonia with use of scheduled benzodiazepines and avoidance of ALL antipsychotic medications. I also agree with institution of mood stabilization with lithium. Good idea to start with low-dose due to pt's marginal fluid status. In regards to ECT, I agree to hold for now in hopes her catatonia will resolve with less intrusive means. If, however, she begins to regress, it would likely be of great benefit to her and could be started after court petition or on an emergency basis if her condition becomes life-threatening. Objective: Vital Signs Temp Pulse Resp BP Pulse Ox 36.8 C 103 H 12 107/74 94 05/27/17 13:10 05/27/17 13:10 05/27/17 13:10 05/27/17 13:10 05/27/17 13:10 Laboratory Results 05/26/17 03:30 05/26/17 05/27/17 05/28/17 05:59 05:59 05:59 Intake Total 2450 1302 952 Output Total 0 Balance 2450 1302 952 - Time Spent With Patient Time Spent With Patient: 60" total. ICD10 Worksheet Patient Problems: Problems Problem Status Onset Acute psychosis Acute Bipolar disorder, unspecified Acute Catatonia Acute Dehydration Acute Eating disorder Acute Volume depletion Acute
[2017-05-27] MEDS: LITHIUM CARBONATE 300 MG CAP PO SCH (21:25)
[2017-05-28] MEDS: LORazepam 1 MG TAB PO SCH ×3 (08:41→15:45)
[2017-05-28] MEDS ORDERED: LORazepam 2 MG/ML INJ IM PRN (09:21)
[2017-05-28 10:29] LABS: CREATINE KINASE 77 IU/L (0-156)
--- NOTE | 2017-05-28 12:59 | SOAPPROG ---
SOAP Progress Note Assessment/Plan: Assessment: Catatonia - improving Bipolar Disorder with psychotic features Superficial self-inflicted lacerations to left wrist Recent catatonia/dehydration requiring IVF and IV Lorazepam in [facility] Reviewed 2nd opinion from Dr Fortune 05/27/17 regarding EMEDS and possible emergency ECT Patient having slow reduction in Catatonia symptoms with improved PO intake. Patient superficially appears improved but has grandiose/hyper-yazidi content , appears disorganized, no insight. Patient had catatonic symptoms after initial admit 05/21/17 after receiving Olanzapine 2.5mg Plan: Short Term Certification 05/25/[address] medication letter 05/27/17 (antipsychotics, lorazepam) Continue [place] 300mg PO QHS Recheck [place] level and BMP Thursday05/30/17 Monitor PO intake. 1:1 staff during meals to prompt for eating/drinking and prevent self-harm with utensils. EMED DAY #4 Ativan 2mg PO/IM TID (0700, 1100, 1600 - before meals) Completed [place] paperwork SP1/Safety precautions Consider retrying atypical antipsychotic if catatonia symptoms resolved >48-72 hours 05/28/17 13:08 Subjective: CC: "Very Well" Patient is a poor historian with minimal information. Reports she is on a spiritual journey to rise to a higher power and a higher level. Unable to explain this futher. Reports she does not think that she has bipolar disorder and does not think she has catatonia. Reports she is in 'deep contemplation.' Reports now she is willing to eat and drink and take medication and meet with family/friends. Denies feeling hopeless or suicidal. Denies AH. Denies paranoia. Objective: Vital Signs Temp Pulse Resp BP Pulse Ox 36.6 C 99 18 111/66 96 05/28/17 08:00 05/28/17 08:00 05/28/17 08:00 05/28/17 08:00 05/28/17 08:00 Laboratory Results 05/28/17 06:10 05/27/17 05/28/17 05/29/17 05:59 05:59 05:59 Intake Total 1302 1442 Output Total 0 Balance 1302 1442 Thin WF. Ambulatory. Odd smiling and euphoric affect. Speech RRR, briefly rapid. Mood 'very well.' Thoughts briefly organized with poverty of detail and fragmented, illogical information. Denies SI or HI. Hyper-yazidi content with grandiosity. Insight poor, judgment impaired. Li 0.4 - not steady state, after two doses 300mg QHS BMP WNL CK WNL Staff report patient ate 100% breakfast, 50% lunch, 75% dinner yesterday. Staff report patient slept overnight. Yesterday had brief periods of staring and unresponsiveness and slumped mutism, lasting several minutes at a time, but no bizarre posturing similar to 05/26/17. Unwilling to meet with brother/ yesterday without coherent explanation. - Time Spent With Patient Time Spent With Patient: 15 minutes - Pending Discharge Pending Discharge Within 24 Hours: No Pending Discharge Within 48 Hours: No ICD10 Worksheet Patient Problems: Problems Problem Status Onset Acute psychosis Acute Bipolar disorder, unspecified Acute Catatonia Acute Dehydration Acute Eating disorder Acute Volume depletion Acute
[2017-05-28] MEDS: LITHIUM CARBONATE 300 MG CAP PO SCH (20:01)
[2017-05-29] MEDS: LORazepam 1 MG TAB PO SCH ×3 (06:49→16:36)
--- NOTE | 2017-05-29 11:11 | SOAPPROG ---
SOAP Progress Note Assessment/Plan: Assessment: Catatonia - improving Bipolar Disorder mixed with psychotic features Superficial self-inflicted lacerations to left wrist Recent catatonia/dehydration requiring IVF and IV Lorazepam in [facility] after Olanzapine 2.5mg on 05/21/17 Patient only had brief catatonic symptoms yesterday. Today appears to have some improvement in insight but still appears to have brief mood lability and internal preoccupation. Plan: Short Term Certification 05/25/[address] ordered medication letter 05/27/17 (antipsychotics, lorazepam) Continue [place] 300mg PO QHS Recheck [place] level and BMP Thursday05/30/17 Monitor PO intake. 1:1 staff during meals to prompt for eating/drinking and prevent self-harm with utensils. Discontinue Emergency Medication Orders Continue Ativan 2mg TID before meals Education about mental illness 05/29/17 11:14 Subjective: CC: "Very well" Patient is a poor historian with minimal speech. 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 Reports sleeping well. Denies feelings sedated, slowed, or unsteady. Reports continuing to be on a 'spiritual mission' but willing to eat and drink and take medications. Objective: Vital Signs Temp Pulse Resp BP Pulse Ox 36.9 C 74 14 96/59 L 96 05/29/17 00:30 05/29/17 00:30 05/29/17 00:30 05/29/17 00:30 05/29/17 00:30 Laboratory Results 05/28/17 06:10 05/28/17 05/29/17 05/30/17 05:59 05:59 05:59 Intake Total 1442 1450 Balance 1442 1450 Alert WF. Speech soft few words. Appears thin. Mood 'very well' Affect restricted preoccupied at times, later smiling inappropriately, later appearing sad. Thoughts very brief. Denies AH or SI or violent thoughts or paranoia. Some mormonism preoccupation. Reports wanting to be well to take care of children and return to work. Agrees to eat and drink and continue medications and meet with family/friends. Insight very limited. Staff report patient slept 9 hours. Brief mutism and staring yesterday for minutes at a time, once sitting on floor in odd posture for several minutes. Ate 50-75% meals. Cooperative with medication. Sat thru ART group and able to speak briefly and draw briefly. - Time Spent With Patient Time Spent With Patient: 15 minutes - Pending Discharge Pending Discharge Within 24 Hours: No Pending Discharge Within 48 Hours: No ICD10 Worksheet Patient Problems: Problems Problem Status Onset Acute psychosis Acute Bipolar disorder, unspecified Acute Catatonia Acute Dehydration Acute Eating disorder Acute Volume depletion Acute
[2017-05-29] MEDS: LITHIUM CARBONATE 300 MG CAP PO SCH (17:49)
[2017-05-30] MEDS: LORazepam 1 MG TAB PO SCH ×3 (09:24→15:56)
--- NOTE | 2017-05-30 14:58 | SOAPPROG ---
SOAP Progress Note Assessment/Plan: Assessment: Per Dr. Catalan's notes: Assessment: Catatonia - improving Bipolar Disorder mixed with psychotic features Superficial self-inflicted lacerations to left wrist Recent catatonia/dehydration requiring IVF and IV Lorazepam in [facility] after Olanzapine 2.5mg on 05/21/17 Patient only had brief catatonic symptoms yesterday. Today appears to have some improvement in insight but still appears to have brief mood lability and internal preoccupation. Plan: Short Term Certification 05/25/[address] ordered medication letter 05/27/17 (antipsychotics, lorazepam) Continue [place] 300mg PO QHS Recheck [place] level and BMP Thursday05/30/17 Monitor PO intake. 1:1 staff during meals to prompt for eating/drinking and prevent self-harm with utensils. Discontinue Emergency Medication Orders Continue Ativan 2mg TID before meals Education about mental illness Plan: 05/30/17 14:54 1. Patient declines to continue on [place] b/c she feels it is making her have unsteady gait. 2. Patient is eating 100% of meals and drinking appropriate amounts of fluids ( > 800cc's daily). 3. Has occasional hypotension and one episode of tachycardia this AM, but electrolytes were WNL this AM. 4. BMP was WNL, [place] level was 0.3 on 05/30/17. 5. Continue on STC. Subjective: Met with patient, reviewed chart and d/w staff. Patient states she doesn't want to take lithium any longer. She says she was "not manic" when she was admitted and doesn't need to take a mood stabilizer. 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 explained that given her unusual behavior in weeks prior to admission and first-degree relative with dx of bipolar disorder, she is at considerable risk for future episodes of heidi. However, patient denies this, stating that she was engaged in an "ascetic exercise" that involved not eating and not drinking and "intense contemplation. " She says this was an entirely "voluntary" exercise and she has been able to eat and drink in hospital. She denies any SI/HI and denies any AH/VH. Denies being on "mission from God" as reported by her and brother several days ago. Objective: Vital Signs Temp Pulse Resp BP Pulse Ox 37.1 C 103 H 10 L 102/67 96 05/30/17 10:10 05/30/17 10:10 05/30/17 10:10 05/30/17 10:10 05/30/17 10:10 Laboratory Results 05/30/17 06:20 05/29/17 05/30/17 05/31/17 05:59 05:59 05:59 Intake Total 1450 1950 Balance 1450 1950 MSE: Affect: Euthymic Mood: "Good" TP: More linear, logical TC: Delusional, still talks about christianity experiences and "ascetic exercises" Insight/ Judgment: Poor - Time Spent With Patient Time Spent With Patient: 25" - Pending Discharge Pending Discharge Within 24 Hours: No Pending Discharge Within 48 Hours: No ICD10 Worksheet Patient Problems: Problems Problem Status Onset Acute psychosis Acute Bipolar disorder, unspecified Acute Catatonia Acute Dehydration Acute Eating disorder Acute Volume depletion Acute
[2017-05-30] MEDS ORDERED: MAGNESIUM HYDROXIDE 30 ML UDCUP PO PRN (15:06)
[2017-05-30] MEDS ORDERED: ACETAMINOPHEN 325 MG TAB PO PRN (15:06)
[2017-05-30] MEDS ORDERED: MAG HYDROX/AL HYDROX/SIMETH 30 ML UDCUP PO PRN (15:06)
[2017-05-31] MEDS: LORazepam 1 MG TAB PO SCH ×3 (06:40→15:47)
--- NOTE | 2017-05-31 13:54 | SOAPPROG ---
SOAP Progress Note Assessment/Plan: Assessment: Per Dr. Catalan's notes: Assessment: Catatonia - improving Bipolar Disorder mixed with psychotic features Superficial self-inflicted lacerations to left wrist Recent catatonia/dehydration requiring IVF and IV Lorazepam in [facility] after Olanzapine 2.5mg on 05/21/17 Patient only had brief catatonic symptoms yesterday. Today appears to have some improvement in insight but still appears to have brief mood lability and internal preoccupation. Plan: Short Term Certification 05/25/[address] ordered medication letter 05/27/17 (antipsychotics, lorazepam) Continue [place] 300mg PO QHS Recheck [place] level and BMP Thursday05/30/17 Monitor PO intake. 1:1 staff during meals to prompt for eating/drinking and prevent self-harm with utensils. Discontinue Emergency Medication Orders Continue Ativan 2mg TID before meals Education about mental illness Plan: 05/30/17 14:54 1. Patient declines to continue on [place] b/c she feels it is making her have unsteady gait. 2. Patient is eating 100% of meals and drinking appropriate amounts of fluids ( > 800cc's daily). 3. Has occasional hypotension and one episode of tachycardia this AM, but electrolytes were WNL this AM. 4. BMP was WNL, [place] level was 0.3 on 05/30/17. 5. Continue on STC. 05/31/17 13:47 1. Patient states she is ambulating better since coming off lithium. MD can see no signs of change in her gait. 2. Patient is eating 100% of meals and >400cc's fluid with each meal. 3. Slept 10 hrs last night. 4. BP continues to be low (95/70 this AM), HR was 95. 5. STC Subjective: Met with patient, reviewed chart and d/w staff. Patient is sitting at dining table getting vitals checked. She denies any c/o dizziness or lightheadedness today. She says her gait is more steady since stopping lithium yesterday, however MD can not tell any change in patient's gait. There is no evidence of pressured speech or racing thoughts, patient denies elevated/elated mood, intrusive thoughts, paranoia, hallucinations. She denies any thoughts, plan or intent to harm herself. She told RN this AM that she's "had bipolar my whole life" but is "able to manage it" by "making good choices." Yesterday patient adamantly denied having bipolar heidi. She doesn't want to take lithium or any other mood stabilizer and wants to go back to managing her illness on her own terms without psychotropic medications. MD warned about risks associated with untreated bipolar and tried to point out that patient's sxs were more concerning to her , brother and friends than patient realized at the time. Patient did not accept that this was sufficient reason to take meds. Objective: Vital Signs Temp Pulse Resp BP Pulse Ox 36.8 C 95 14 95/70 L 96 05/31/17 12:41 05/31/17 12:41 05/31/17 12:41 05/31/17 12:41 05/31/17 12:41 Laboratory Results 05/30/17 06:20 05/30/17 05/31/17 06/01/17 05:59 05:59 05:59 Intake Total 1950 1180 500 Balance 1950 1180 500 MSE: Affect: Euthymic Mood: "Good" TP: Linear but irrational when it comes to dx and tx TC: Denies any SI/HI, AH/VH Insight/Judgment: Poor - Time Spent With Patient Time Spent With Patient: 25" - Pending Discharge Pending Discharge Within 24 Hours: No Pending Discharge Within 48 Hours: No ICD10 Worksheet Patient Problems: Problems Problem Status Onset Acute psychosis Acute Bipolar disorder, unspecified Acute Catatonia Acute Dehydration Acute Eating disorder Acute Volume depletion Acute
[2017-06-01] MEDS: LORazepam 1 MG TAB PO SCH ×2 (06:51→16:15)
--- NOTE | 2017-06-01 11:15 | SOAPPROG ---
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 Patient has poor insight with illogical and hyper-mormon thinking. Patient repeatedly refusing [place]. Plan: Short Term Certification, Court Ordered Medications (expires August 22, 2017) Reduce Ativan 2mg PO BID Start Abilify 1mg PO QAM. Discussed risk of EPS. Check BMP and CK level Thursday06/03/17 Patient signed ROM for referral to [facility] assessment/plan on phone with Continue to monitor PO intake. 1:1 staff during meals to prompt for eating/ drinking and prevent self-harm with utensils. Education about mental illness 06/01/17 11:15 06/01/17 11:18 Subjective: CC: "I'm good" Patient reports stable mood but reports her hospitalization is related to a ' spiritual mission' and that she continues to have 'spiritual exercises.' Reports she believes that she has had bipolar mood swings in the past, including severe mood swings post-, but reports 'I don't need medication at this time.' Reports wanting to return to work. Reports not eating/sleeping for days was part of a 'spiritual quest.' Reports feeling unsteady and unbalanced with walking. Objective: Vital Signs Temp Pulse Resp BP Pulse Ox 36.5 C 72 15 92/50 L 96 06/01/17 06:28 06/01/17 06:28 06/01/17 06:28 06/01/17 06:28 06/01/17 06:28 Laboratory Results 05/30/17 06:20 05/31/17 06/01/17 06/02/17 05:59 05:59 05:59 Intake Total 1180 1830 Balance 1180 1830 Alert WM Speech RRR. Odd smiling. Mood 'good' Thoughts brief, illogical. Denies SI or HI. Reports hospitalization was related to a spiritual quest to fast and that she is currently performing spiritual exercises. Denies AH. Memory limited. Insight/judgment poor Staff report patient slept 8 hours. Over weekend refused lithium. Was observed to be paranoid about and hyper-mormon and internally preoccupied. Patient was eating and drinking well over weekend. - Time Spent With Patient Time Spent With Patient: 20 minutes - Pending Discharge Pending Discharge Within 24 Hours: No Pending Discharge Within 48 Hours: No ICD10 Worksheet Patient Problems: Problems Problem Status Onset Acute psychosis Acute Bipolar disorder, unspecified Acute Catatonia Acute Dehydration Acute Eating disorder Acute Volume depletion Acute
[2017-06-01] MEDS: ARIPiprazole 2 MG TAB PO SCH (12:13)
[2017-06-02] MEDS: LORazepam 1 MG TAB PO SCH ×3 (06:54→20:28)
[2017-06-02] MEDS: ARIPiprazole 2 MG TAB PO SCH (08:31)
--- NOTE | 2017-06-02 08:51 | SOAPPROG ---
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 Plan: Short Term Certification, Court Ordered Medications (expires August 22, 2017) Reduce Ativan 1mg TID Increase Abilify 2mg PO QAM Check BMP and CK level Thursday06/03/17 Continue to monitor PO intake. 1:1 staff during meals to prompt for eating/ drinking and prevent self-harm with utensils. Education about mental illness 06/02/17 08:51 Subjective: CC: 'my ascetic procedure and purification is over.' Patient reports she wants to be discharged [place] to spend time with children and wants to return to work. Reports she doesn't think she has a mental illness and doesn't want medication, but will take medication 'in order to be discharged.' Reports she 'probably' has bipolar disorder 'but I can manage it thru meditation.' Reports she is no longer on a spiritual mission to fast. Denies side effects from Abilify. Admits to being unable to work or care for children prior to admission but doesn't think episode was related to mental illness. Objective: Vital Signs Temp Pulse Resp BP Pulse Ox 36.6 C 83 14 93/51 L 95 06/02/17 07:07 06/02/17 07:07 06/02/17 07:07 06/02/17 07:07 06/02/17 07:07 Laboratory Results 05/30/17 06:20 06/01/17 06/02/17 06/03/17 05:59 05:59 05:59 Intake Total 1830 1702 Balance 1830 1702 Alert WF, good eye contact, appears euthymic. Mood 'my ascetic procedure and purification is over.' Affect euthymic with odd smiling. Thoughts briefly organized with limited detail. Denies SI or HI. Odd statements. Denies AH or paranoia. Insight limited/poor. Staff report patient eating 100% of meals and slept overnight. - Time Spent With Patient Time Spent With Patient: 20 minutes - Pending Discharge Pending Discharge Within 24 Hours: No Pending Discharge Within 48 Hours: Yes Pending Discharge Date: 06/04/17 Pending Discharge Time: 11:00 ICD10 Worksheet Patient Problems: Problems Problem Status Onset Acute psychosis Acute Bipolar disorder, unspecified Acute Catatonia Acute Dehydration Acute Eating disorder Acute Volume depletion Acute
[2017-06-02] MEDS ORDERED: LORazepam 1 MG TAB PO PRN (08:54)
[2017-06-02] MEDS ORDERED: LORazepam 1 MG TAB PO SCH (09:00)
[2017-06-03] MEDS: ARIPiprazole 2 MG TAB PO SCH ×2 (07:59→09:04)
--- NOTE | 2017-06-03 08:14 | SOAPPROG ---
SOAP Progress Note Assessment/Plan: Assessment: Bipolar Disorder mixed with psychotic and catatonic features versus Schizoaffective Disorder Superficial self-inflicted lacerations to left wrist in [facility] 05/23/17 Self-inflicted laceration to left wrist 06/03/17 Recent catatonia/dehydration requiring IVF and IV Lorazepam in [facility] after Olanzapine 2.5mg on 05/21/17 Patient has had remission of catatonic symptoms but had odd affect, illogical thinking, and cut wrist with broken CD. Plan: Short Term Certification, Court Ordered Medications (expires August 22, 2017) Continue Ativan 1mg TID Continue Abilify 2mg PO QAM; increase 5mg QAM if CK WNL Check BMP and CK level pending Line of sight precautions to prevent self-harm Called report to ER physician Dr. Amaral to evaluate abrastions/laceration to left wrist for possible suture Reviewed assessment/plan on phone with 06/03/17 08:12 Subjective: CC: "I am still in my purification process" "I miss my children" Patient reports stable mood then reports cutting on her left wrist with a broken CD. Reports this was due to 'my purification process.' Denies mood swings then smiles at this M.D. Unable to explain goals for treatment or reasons to live. Refuses further interview. Objective: Vital Signs Temp Pulse Resp BP Pulse Ox 36.8 C 65 16 98/65 L 95 06/02/17 16:00 06/02/17 16:00 06/02/17 16:00 06/02/17 16:00 06/02/17 16:00 06/02/17 06/03/17 06/04/17 05:59 05:59 05:59 Intake Total 1702 900 Balance 1702 900 Alert WF. Abrasions and cut on left wrist. Speech RRR. Mood 'I am still in my purification process.' Affect odd smiling. Thoughts illogical. Currently denies suicidal thinking but reports cutting on her wrist overnight. Insight poor/impaired. Staff report patient cooperative with medications and slept 9 hours. - Time Spent With Patient Time Spent With Patient: 20 minutes - Pending Discharge Pending Discharge Within 24 Hours: No Pending Discharge Within 48 Hours: No ICD10 Worksheet Patient Problems: Problems Problem Status Onset Acute psychosis Acute Bipolar disorder, unspecified Acute Catatonia Acute Dehydration Acute Eating disorder Acute Volume depletion Acute
[2017-06-03 10:38] LABS: CREATINE KINASE 57 IU/L (0-156)
[2017-06-03] MEDS: LORazepam 1 MG TAB PO SCH ×3 (10:57→21:01)
[2017-06-03] MEDS ORDERED: ARIPiprazole 2 MG TAB PO ONE (11:01)
[2017-06-03] MEDS: BACITRACIN OINTMENT 1 PACKET TP SCH (21:01)
--- NOTE | 2017-06-04 08:04 | SOAPPROG ---
SOAP Progress Note Assessment/Plan: Assessment: Bipolar Disorder mixed with psychotic and catatonic features versus Schizoaffective Disorder Self-inflicted laceration to left wrist 05/23/17 and 06/03/17 History of catatonia/dehydration requiring IV fluids and IV Lorazepam in [facility] weekend of 05/23/17 Patient appears improved with better insight but has continued low level AH; patient was labile and dysphoric with command AH to self-harm, cut wrist yesterday. Plan: Short Term Certification, Court Ordered Medications (expires August 22, 2017) Continue Ativan 1mg TID Increase Abilify 5mg PO QAM, monitor for catatonia Line of sight precautions to prevent self-harm Monitor mood stability and psychotic symptoms Discussed [facility] Coordinate discharge planning with estranged Hitesh and brother Naveen (in [place]) 06/04/17 08:08 Subjective: CC: "I feel better today." Patient reports tolerating Abilify 4mg yesterday, slept well. Reports this AM continuing to have comments from a male voice talking about her posture and telling her to purify herself. Denies command AH to harm self this AM. Denies suicidal or violent thoughts. Agrees to take medication and eating/drink on unit. Reports willingness to coordinate discharge planning with and brother. Objective: Vital Signs Temp Pulse Resp BP Pulse Ox 36.1 C 89 16 104/65 95 06/04/17 00:30 06/04/17 00:30 06/04/17 00:30 06/04/17 00:30 06/04/17 00:30 Laboratory Results 06/03/17 07:00 06/03/17 06/04/17 06/05/17 05:59 05:59 05:59 Intake Total 900 1400 Balance 900 1400 Staff report patient slept overnight, eating 75% of meals with fair PO intake. Yesterday patient was labile and disorganized, reported command AH to harm self , superficially cut left wrist with a broken CD - evaluated in ED without sutures. Patient is alert and pleasant but with odd smiling. Speech RRR. Guarded, limited information. Endorses AH making comments. Denies command AH to harm self. Illogical/hyperreligious ideas about purification. Mood 'I feel better today.' Occasional loose association. Denies SI or HI. Denies paranoia toward family/friends and is willing to meet with them and coordinate discharge planning. Poor insight. - Time Spent With Patient Time Spent With Patient: 20 minutes - Pending Discharge Pending Discharge Within 24 Hours: No Pending Discharge Within 48 Hours: No ICD10 Worksheet Patient Problems: Problems Problem Status Onset Acute psychosis Acute Bipolar disorder, unspecified Acute Catatonia Acute Dehydration Acute Eating disorder Acute Volume depletion Acute
[2017-06-04] MEDS: LORazepam 1 MG TAB PO SCH ×3 (08:22→21:04)
[2017-06-04] MEDS: ARIPiprazole 5 MG TAB PO SCH ×2 (08:22→08:26)
[2017-06-04] MEDS: BACITRACIN OINTMENT 1 PACKET TP SCH (21:04)
[2017-06-05] MEDS ORDERED: LORazepam 2 MG/ML INJ IM PRN (07:30)
--- NOTE | 2017-06-05 07:36 | SOAPPROG ---
SOAP Progress Note Assessment/Plan: Assessment: Bipolar Disorder mixed with psychotic and catatonic features versus Schizoaffective Disorder Self-inflicted laceration to left wrist 05/23/17 and 06/03/17 History of catatonia/dehydration requiring IV fluids and IV Lorazepam in [facility] weekend of 05/23/17 Patient reports continued AH telling her to fast and impulsively tried to elope from unit yesterday. Plan: Short Term Certification, Court Ordered Medications (expires August 22, 2017) Increase Ativan 2mg PO BID, if refused 2mg IM Increase Abilify 7.5mg PO QAM, monitor for catatonia Line of sight precautions to prevent self-harm Monitor PO intake Check BMP and CK in AM Consider Emergency ECT if not eating/drinking over next 2-3 days 06/05/17 07:36 Subjective: CC: "I want to fast today, just for today, to punish myself" Patient reports she doesn't want to eat or drink today. Reports this is ' purification.' Reports continued AH telling her to do this. Reports she tried to elope from unit because 'I don't like to be watched all the time.' Refuses to discuss mood or goals for the future. Endorses mood swings. Denies feeling stiff or slow or restless. Objective: Vital Signs Temp Pulse Resp BP Pulse Ox 36.7 C 73 16 100/58 L 96 06/05/17 00:30 06/05/17 00:30 06/05/17 00:30 06/05/17 00:30 06/05/17 00:30 Laboratory Results 06/03/17 07:00 06/04/17 06/05/17 06/06/17 05:59 05:59 05:59 Intake Total 1400 500 Balance 1400 500 staff report patient at 50% breakfast, 50% lunch, no dinner yesterday. Impulsively tried to elope from unit. Alert WF. No rigidity or posturing. Speech RRR. Odd smiling. Mood 'I want to purify myself' Thoughts brief and illogical. +AH. No insight. - Time Spent With Patient Time Spent With Patient: 15 minutes - Pending Discharge Pending Discharge Within 24 Hours: No Pending Discharge Within 48 Hours: No ICD10 Worksheet Patient Problems: Problems Problem Status Onset Acute psychosis Acute Bipolar disorder, unspecified Acute Catatonia Acute Dehydration Acute Eating disorder Acute Volume depletion Acute
[2017-06-05] MEDS: LORazepam 1 MG TAB PO SCH ×3 (08:58→21:28)
[2017-06-05] MEDS: ARIPiprazole 5 MG TAB PO SCH (08:58)
[2017-06-05] MEDS ORDERED: LORazepam 1 MG TAB PO SCH (09:00)
[2017-06-05] MEDS: BACITRACIN OINTMENT 1 PACKET TP SCH (21:28)
[2017-06-06] MEDS: LORazepam 1 MG TAB PO SCH ×2 (08:29→20:49)
[2017-06-06] MEDS: ARIPiprazole 5 MG TAB PO SCH (08:29)
[2017-06-06 11:46] LABS: CREATINE KINASE 51 IU/L (0-156)
--- NOTE | 2017-06-06 13:34 | SOAPPROG ---
SOAP Progress Note Assessment/Plan: Assessment: Per Dr. Catalan's notes: Assessment: Bipolar Disorder mixed with psychotic and catatonic features versus Schizoaffective Disorder Self-inflicted laceration to left wrist 05/23/17 and 06/03/17 History of catatonia/dehydration requiring IV fluids and IV Lorazepam in [facility] weekend of 05/23/17 Patient reports continued AH telling her to fast and impulsively tried to elope from unit yesterday. Plan: Short Term Certification, Court Ordered Medications (expires August 22, 2017) Increase Ativan 2mg PO BID, if refused 2mg IM Increase Abilify 7.5mg PO QAM, monitor for catatonia Line of sight precautions to prevent self-harm Monitor PO intake Check BMP and CK in AM Consider Emergency ECT if not eating/drinking over next 2-3 days 06/06/17 13:30 1. Patient has resumed eating and drinking fluids. She ate 100% of breakfast. Her blood glucose was 31 early this AM before breakfast. When it was rechecked by FS prior to lunch, it was 161. 2. CK was 51 this AM. 3. No s/s of catatonia. 4. Taking Abilify and Ativan without complaint. 5. Slept 5-1/2 hrs last night. Subjective: Met with patient, reviewed chart and d/w staff. Patient presents smiling, pleasant, cooperative. She said she felt "dizzy and tired" this morning, but has felt "fine" since breakfast. She admits that not eating and drinking makes her feel weak and dizzy. However, she reports feeling "better" once she ate breakfast. Staff also report patient drank at least 500cc's of fluids this AM. Patient still has protestant preoccupation (admits she was on "spiritual fast") but denies hearing any voices and no commands to hurt herself. She denies any CAH/AH/VH and has no thoughts, plan or intent to harm herself or others. Objective: Vital Signs Temp Pulse Resp BP Pulse Ox 36.6 C 100 14 113/55 L 96 06/06/17 07:03 06/06/17 07:03 06/06/17 07:03 06/06/17 07:03 06/06/17 07:03 Laboratory Results 06/06/17 06:00 06/05/17 06/06/17 06/07/17 05:59 05:59 05:59 Intake Total 500 1999 Balance 500 1999 MSE: Affect: Elevated Mood: "Great" TP: Linear TC: Denies any SI/HI, no hallucinations Insight/Judgment: Poor a/e/b not eating or drinking for couple days this week, and cutting her arm - Time Spent With Patient Time Spent With Patient: 20" - Pending Discharge Pending Discharge Within 24 Hours: No Pending Discharge Within 48 Hours: No ICD10 Worksheet Patient Problems: Problems Problem Status Onset Acute psychosis Acute Bipolar disorder, unspecified Acute Catatonia Acute Dehydration Acute Eating disorder Acute Volume depletion Acute
[2017-06-06] MEDS: BACITRACIN OINTMENT 1 PACKET TP SCH (20:49)
[2017-06-07] MEDS: LORazepam 1 MG TAB PO SCH ×2 (08:21→20:38)
[2017-06-07] MEDS: ARIPiprazole 5 MG TAB PO SCH (08:21)
--- NOTE | 2017-06-07 13:14 | SOAPPROG ---
SOAP Progress Note Assessment/Plan: Assessment: Per Dr. Catalan's notes: Assessment: Bipolar Disorder mixed with psychotic and catatonic features versus Schizoaffective Disorder Self-inflicted laceration to left wrist 05/23/17 and 06/03/17 History of catatonia/dehydration requiring IV fluids and IV Lorazepam in [facility] weekend of 05/23/17 Patient reports continued AH telling her to fast and impulsively tried to elope from unit yesterday. Plan: Short Term Certification, Court Ordered Medications (expires August 22, 2017) Increase Ativan 2mg PO BID, if refused 2mg IM Increase Abilify 7.5mg PO QAM, monitor for catatonia Line of sight precautions to prevent self-harm Monitor PO intake Check BMP and CK in AM Consider Emergency ECT if not eating/drinking over next 2-3 days 06/06/17 13:30 1. Patient has resumed eating and drinking fluids. She ate 100% of breakfast. Her blood glucose was 31 early this AM before breakfast. When it was rechecked by FS prior to lunch, it was 161. 2. CK was 51 this AM. 3. No s/s of catatonia. 4. Taking Abilify and Ativan without complaint. 5. Slept 5-1/2 hrs last night. 06/07/17 13:10 1. BP was 91/51 this AM, but has run low most of the time. HR was 71. 2. No evidence of catatonia, denies feeling lightheaded or dizzy today. 3. Continues to deny any SE's from Abilify. 4. Patient took dressing off her left arm last night. MD inspected this AM, and it is still erythematous and bleeding. MD advised to apply Bacitracin and leave covered. RN dressed wound and replaced bandage. 5. Change diet to regular without suicide restrictions. Patient was able to contract for safety, and has denied any urges to self-harm over weekend. 6. Has eaten 100% of meals Sat & Sun and is drinking plenty of fluids. Subjective: Met with patient, reviewed chart and d/w staff. Patient would like to be back on regular diet without suicide restrictions. She is able to contract for safety. Her left arm is still red, swollen and oozing blood. MD recommended dressing with Bacitracin and applying a new bandage. Patient took dressing off last night to "let it air." MD reminded patient of risk of infection and advised keeping antibiotic ointment and bandage in place. She agreed. Patient has eaten 100% of meals and is drinking plenty of fluids this weekend. She slept 8-1/2 hrs last night. Objective: Vital Signs Temp Pulse Resp BP Pulse Ox 36.6 C 71 15 91/51 L 97 06/07/17 06:34 06/07/17 06:34 06/07/17 06:34 06/07/17 06:34 06/07/17 06:34 Laboratory Results 06/06/17 06:00 06/06/17 06/07/17 06/08/17 05:59 05:59 05:59 Intake Total 1999 1499 Balance 1999 1499 MSE: Affect: Euthymic Mood: "OK" TP: Linear, goal-directed TC: Yazdanism preoccupation, delusions, still doing "spiritual contemplation" though not fasting Insight/Judgment: Improved but still impaired - Time Spent With Patient Time Spent With Patient: 20" - Pending Discharge Pending Discharge Within 24 Hours: No Pending Discharge Within 48 Hours: No ICD10 Worksheet Patient Problems: Problems Problem Status Onset Acute psychosis Acute Bipolar disorder, unspecified Acute Catatonia Acute Dehydration Acute Eating disorder Acute Volume depletion Acute
[2017-06-07] MEDS: BACITRACIN OINTMENT 1 PACKET TP SCH (20:39)
[2017-06-08] MEDS: ARIPiprazole 5 MG TAB PO SCH (08:17)
[2017-06-08] MEDS: LORazepam 1 MG TAB PO SCH (08:18)
--- NOTE | 2017-06-08 09:10 | SOAPPROG ---
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 Patient eating well yesterday but delusional that she can fast for a week and is currently underweight with BMI 17.5 Plan: Short Term Certification, Court Ordered Medications (expires August 22, 2017) Continue Ativan 2mg PO BID Discontinue Abilify - ineffective Line of sight precautions to prevent self-harm Monitor PO intake Recheck BMP, CBC, CK in AM Dry dressing to LUE; requested hospitalist reassess for infection and wound care recommendations Request 2nd opinion from Dr. Fortune regarding emergency ECT 06/08/17 09:13 Subjective: CC: "Very good, relaxed, meditating." Patient reports some mood instability, including becoming tearful when thinking about children. Reports wanting to be well to get back to work and spend time with children. Reports wanting to fast again, then reports wanting to go a week without eating. Denies that this is a suicidal plan. Denies harming self or scratching arm. Endorses continuing to feel that she is on a spiritual mission to purify herself. Denies violent thoughts. Denies AH. Objective: Vital Signs Temp Pulse Resp BP Pulse Ox 36.6 C 83 15 90/55 L 94 06/08/17 06:39 06/08/17 06:39 06/08/17 06:39 06/08/17 06:39 06/08/17 06:39 Laboratory Results 06/06/17 06:00 06/07/17 06/08/17 06/09/17 05:59 05:59 05:59 Intake Total 1500 Balance 1500 Alert WF. Extensive erythema left forearm but no pus/drainage or swelling. Speech RRR. Mood 'very good' 'I want to fast for a week.' Affect odd smiling. Thoughts briefly organized but illogical. Grandiose/bizarre delusions that that she can fast for a week. Denies SI or HI. Denies AH but reports she is on a mission from God to fast and 'purify' herself. No insight. Staff report patient didn't eat for 36 hours Jun 04 then had hypoglycemia ( glucose 30) on Jun 06. After that has been eating 75-100% of meals. Isolative at times. Met with family on Jun 06 but refused to meet with them yesterday 06/07 - Time Spent With Patient Time Spent With Patient: 20 minutes - Pending Discharge Pending Discharge Within 24 Hours: No Pending Discharge Within 48 Hours: No ICD10 Worksheet Patient Problems: Problems Problem Status Onset Acute psychosis Acute Bipolar disorder, unspecified Acute Catatonia Acute Dehydration Acute Eating disorder Acute Volume depletion Acute
--- NOTE | 2017-06-08 12:33 | SOAPPROG ---
SOAP Progress Note Assessment/Plan: Assessment: Abrasions and lacerations to left volar forearm. No signs or symptoms of infection. Okay to wash with soap and water when she bathes. Continue dry dressing. Expect continued healing. 06/08/17 12:32 Subjective: Asked to see patient to follow up on left wrist lacerations. She had an emergency department visit 5 days ago after she had lacerated her wrist with a broken Music compact disc. She denies pain, fevers or chills. Objective: Vital Signs Temp Pulse Resp BP Pulse Ox 36.6 C 83 15 90/55 L 94 06/08/17 06:39 06/08/17 06:39 06/08/17 06:39 06/08/17 06:39 06/08/17 06:39 Laboratory Results 06/06/17 06:00 06/07/17 06/08/17 06/09/17 05:59 05:59 05:59 Intake Total 1500 500 Balance 1500 500 Physical Exam - Physical Exam General Appearance: WD/WN, alert, no apparent distress, thin Respiratory: No respiratory distress, No accessory muscle use Skin: normal color, warm/dry, other (Left volar forearm with area of erythema, shallow lacerations and scant granulation tissue approximately 4 x 12 cm with approximately 2 x 8 cm central area of white slough. No purulence.) ICD10 Worksheet Patient Problems: Problems Problem Status Onset Acute psychosis Acute Bipolar disorder, unspecified Acute Catatonia Acute Dehydration Acute Eating disorder Acute Volume depletion Acute
[2017-06-08] MEDS: LORazepam 1 MG/0.5 ML UDSYR PO SCH (20:18)
[2017-06-08] MEDS: BACITRACIN OINTMENT 1 PACKET TP SCH (21:01)
[2017-06-09] MEDS: LORazepam 1 MG/0.5 ML UDSYR PO SCH (08:41)
[2017-06-09 08:58] LABS: PLATELET COUNT 268 10^3/uL (150-400)
[2017-06-09 09:49] LABS: CREATINE KINASE 41 IU/L (0-156)
[2017-06-09] MEDS: FERROUS SULFATE 325 MG TAB PO SCH (13:01)
[2017-06-09] MEDS: FOLIC ACID 1 MG TAB PO SCH (13:01)
--- NOTE | 2017-06-09 13:26 | SOAPPROG ---
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 Patient eating partial meals, and able to meet with family, but has poor insight , odd affect, endorses mood instability and continued thoughts that she is on a spiritual quest to purify herself. Denies command AH today. Plan: Short Term Certification, Court Ordered Medications (expires August 22, 2017) Continue Ativan 2mg PO BID Patient refuses to retry [place]; no clear benefit from Abilify Discussed risks/benefits of starting ECT, Clozapine, or Seroquel Patient unwilling to consent for ECT; no available outpatient provider for Clozapine management after discharge Start Seroquel 12.5mg PO QHS, monitor for catatonia. JOSUE handout given, discussed risk of metabolic syndrome, tardive dyskinesia, weight gain, sedation , hypotension, syncope. Start folic acid and iron supplements for anemia Monitor PO intake Line of sight suicide precautions 06/09/17 13:32 Subjective: CC: "I saw my kids" Patient reports yesterday she finally agreed to meet briefly with her kids. Reports continuing to believe that she is on a mission from God to purify herself and meditate and fast, but is willing to eat as a requirement to avoid a feeding tube or forced ECT. Reports no longer hearing a marco voice telling her to fast or harm herself. Reports she is unsure if she would eat if not in the hospital. Reports wanting to discharge to be near her children. Endorses mood swings and willing to take a medicine for bipolar disorder but is unwilling to retry [place]. Reports no clear benefit from Abilify. Reports no cutting or mutilating herself. Willing to meet with brother and later today. Objective: Vital Signs Temp Pulse Resp BP Pulse Ox 36.6 C 74 16 90/54 L 14 L 06/09/17 06:00 06/09/17 06:00 06/08/17 19:48 06/09/17 06:00 06/09/17 06:00 Laboratory Results 06/09/17 06:00 06/09/17 06:00 06/08/17 06/09/17 06/10/17 05:59 05:59 05:59 Intake Total 1650 Balance 1650 Na 139, Cr 0.6, glucose 62 (low) CK 41 WNL Ca/Mag/PO4 WNL Hgb 11.8 (anemia) Alert thin WF. Cooperative. Affect: Bizarre, odd smiling. Mood 'good.' Illogical thoughts with hyper-jew thoughts and bizarre idea that she can fast again. Denies SI or HI. Denies AH. Insight very poor. Staff report patient ate 50% of all three meals yesterday, able to meet with and children. Continued quiet, isolative behavior with odd smiling and strange statements of being on a spiritual quest. Appears to be responding to internal stimuli at times. - Time Spent With Patient Time Spent With Patient: 30 minutes - Pending Discharge Pending Discharge Within 24 Hours: No Pending Discharge Within 48 Hours: No ICD10 Worksheet Patient Problems: Problems Problem Status Onset Acute psychosis Acute Bipolar disorder, unspecified Acute Catatonia Acute Dehydration Acute Eating disorder Acute Volume depletion Acute
[2017-06-09] MEDS: LORazepam 1 MG TAB PO SCH (15:50)
[2017-06-09] MEDS ORDERED: QUEtiapine FUMARATE 25 MG TAB PO SCH (21:00)
[2017-06-09] MEDS: BACITRACIN OINTMENT 1 PACKET TP SCH (21:16)
[2017-06-10] MEDS ORDERED: QUEtiapine FUMARATE 25 MG TAB PO PRN (09:15)
[2017-06-10] MEDS ORDERED: QUEtiapine FUMARATE 25 MG TAB PO SCH (09:15)
[2017-06-10] MEDS ORDERED: LORazepam 2 MG/ML INJ IM PRN (09:17)
--- NOTE | 2017-06-10 09:22 | SOAPPROG ---
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 Probable cellulitis left wrist. Patient eating partial meals, and able to meet with family yesterday but had continued AH. This AM reports plan to eat and 'ignore' AH and agrees to coordinate discharge planning with and brother. New yellow/brown drainage on left wrist bandage. Patient reports poor coordination and appears mildly ataxic, likely from lorazepam. Plan: Short Term Certification, Court Ordered Medications (expires August 22, 2017) Reduce Ativan 1mg PO/IM TID Increase Seroquel 25mg PO QHS, monitor for catatonia or hypotension. Folic acid and iron supplements for anemia Monitor PO intake Line of sight suicide precautions. Discussed safety planning and coping skills. Wound care consult - left wrist Requested Hospitalist re-asses left wrist regarding starting antibiotic for cellulitis 06/10/17 09:22 Subjective: CC: "Better" Patient reports improved mood this AM and reports wanting to 'be well' for her children. Reports feeling unsteady and off balance. Denies side effects from Seroquel. Reports yesterday having AH of a voice telling her to fast and not eat 'I just ignored it.' Denies AH this AM and plans to eat today. Denies feeling agitated, irritable, or anxious. Denies self-harming behaviors. Agrees to coordinate discharge planning with and brother. Objective: Vital Signs Temp Pulse Resp BP Pulse Ox 36.6 C 72 14 99/56 L 95 06/10/17 06:55 06/10/17 06:55 06/10/17 06:55 06/10/17 06:55 06/10/17 06:55 Laboratory Results 06/09/17 06:00 06/09/17 06:00 06/09/17 06/10/17 06/11/17 05:59 05:59 05:59 Intake Total 1650 1000 Balance 1650 1000 Staff report patient slept 11 hours. On unit appearing anxious and responding to internal stimuli at times but cooperative and calm. Dry dressing has yellow/brown drainage. 2 cm area or swelling/drainage left wrist. Remaining areas of abrasion/laceration are healing. Staff report patient only at 50% of breakfast and lunch yesterday but 100% of dinner and was able to meet with family/children briefly. Alert thin WF. Ambulatory. Mild ataxia. Speech RRR, slightly slurred. Mood ' better' affect: brief smiling and appears calm. Thoughts more organized than previous, reporting wanting to be well to see children. Denies SI or HI. Denies plan to fast. Reports AH yesterday telling her to not eat but denies SI this AM. Limited insight. - Time Spent With Patient Time Spent With Patient: 20 minutes - Pending Discharge Pending Discharge Within 24 Hours: No Pending Discharge Within 48 Hours: No ICD10 Worksheet Patient Problems: Problems Problem Status Onset Acute psychosis Acute Bipolar disorder, unspecified Acute Catatonia Acute Dehydration Acute Eating disorder Acute Volume depletion Acute
[2017-06-10] MEDS: FOLIC ACID 1 MG TAB PO SCH (09:25)
[2017-06-10] MEDS: FERROUS SULFATE 325 MG TAB PO SCH (09:28)
[2017-06-10] MEDS: LORazepam 1 MG TAB PO SCH ×4 (09:29→20:35)
--- NOTE | 2017-06-10 13:00 | SOAPPROG ---
SOAP Progress Note Assessment/Plan: Assessment: Abrasions and lacerations to left volar forearm. No signs or symptoms of infection. Okay to wash with soap and water when she bathes. Continue non- stick dressing. Expect continued healing. 06/10/17 12:59 Subjective: Follow-up on abrasion. Staff are concerned about possible infection. Objective: Vital Signs Temp Pulse Resp BP Pulse Ox 36.6 C 72 14 99/56 L 95 06/10/17 06:55 06/10/17 06:55 06/10/17 06:55 06/10/17 06:55 06/10/17 06:55 Laboratory Results 06/09/17 06:00 06/09/17 06:00 06/09/17 06/10/17 06/11/17 05:59 05:59 05:59 Intake Total 1650 1000 Balance 1650 1000 Physical Exam - Physical Exam General Appearance: WD/WN, alert, no apparent distress Skin: other (Left forearm abrasion overall healing well. Central area of approximately 2 x 3 cm with white slough and serosanguineous drainage on bandage. Granulation tissue visible under slough. No swelling, no purulence no odor, no streaking. Non-tender.) ICD10 Worksheet Patient Problems: Problems Problem Status Onset Acute psychosis Acute Bipolar disorder, unspecified Acute Catatonia Acute Dehydration Acute Eating disorder Acute Volume depletion Acute
[2017-06-10] MEDS ORDERED: LORazepam 1 MG TAB PO SCH (16:00)
[2017-06-11] MEDS: FOLIC ACID 1 MG TAB PO SCH (09:38)
[2017-06-11] MEDS: LORazepam 1 MG TAB PO SCH ×3 (09:38→20:50)
[2017-06-11] MEDS: FERROUS SULFATE 325 MG TAB PO SCH (09:38)
--- NOTE | 2017-06-11 11:10 | SOAPPROG ---
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 Somewhat illogical when discussing psychotic and catatonic symptoms that occurred recently, but appropriate regarding safety planning and need for continued treatment and appears future oriented and more organized; patient has consistently agreed to meet with family for past 3 days. Plan: Short Term Certification, Court Ordered Medications (expires August 22, 2017) Continue Ativan 1mg PO/IM TID Increase Seroquel 37.5mg PO QHS, monitor for catatonia or hypotension. Monitor PO fluid intake, %meals eaten, monitor for 30 minutes after meals Dry dressing BID to left wrist wound Coordinate discharge planning with and brother Change monitoring - 15min SPI/safety checks 06/11/17 11:15 Subjective: CC: "Very good, happy to see my children." Patient reports stable mood. Reports she wants to continue seeing her and children during visits. Reports talking to her brother on the phone last night. Reports wanting to be well for her family and to return to work. Denies feeling hopeless, agitated, irritable, or having any thoughts of suicide or self-harm. Reports brief AH up until yesterday, none today. Reports 'I just ignored it' yesterday. Reports if she heard AH to fast or harm self 'I would just ignore it.' Reports she will talk to staff if feeling agitated or having suicidal thoughts. Reports if she was not in hospital she would talk to , friend Mirna, or brother Naveen if having severe emotional distress. Denies plan/intent to fast again. Denies stiffness or dizziness or feeling weak or unsteady. Objective: Vital Signs Temp Pulse Resp BP Pulse Ox 36.8 C 65 16 87/51 L 96 06/11/17 06:23 06/11/17 06:23 06/11/17 06:23 06/11/17 06:23 06/11/17 06:23 Microbiology 04/04/18 12:55 Gram Stain - Final Wrist - Swab Laboratory Results 06/09/17 06:00 06/09/17 06:00 06/10/17 06/11/17 06/12/17 05:59 05:59 05:59 Intake Total 1000 2600 Balance 1000 2600 Alert thin WF. Ambulatory without tremors. Speech RRR. Mood 'very good, happy to see my children.' Affect euthymic and polite. Denies SI or HI or AH or paranoia. Odd statements regarding past symptoms of command AH to fast and harm self earlier in hospitalization. Denies intent to fast or stop eating. Denies command AH today. Insight limited. Judgment appropriate regarding need for continued treatment. Left wrist abrasions appear to be healing without new swelling, mild serous drainage. Staff report patient has been eating well and slept 9 hours. Calm. Sometimes appearing preoccupied. Was pleasant and approrpiate during visit by and children yesterday and day prior. - Time Spent With Patient Time Spent With Patient: 20 minutes - Pending Discharge Pending Discharge Within 24 Hours: No Pending Discharge Within 48 Hours: No ICD10 Worksheet Patient Problems: Problems Problem Status Onset Acute psychosis Acute Bipolar disorder, unspecified Acute Catatonia Acute Dehydration Acute Eating disorder Acute Volume depletion Acute
[2017-06-11] MEDS: QUEtiapine FUMARATE 25 MG TAB PO SCH (20:51)
[2017-06-12] MEDS: FOLIC ACID 1 MG TAB PO SCH (08:19)
[2017-06-12] MEDS: FERROUS SULFATE 325 MG TAB PO SCH (08:19)
[2017-06-12] MEDS: LORazepam 1 MG TAB PO SCH ×3 (08:19→20:22)
--- NOTE | 2017-06-12 10:51 | SOAPPROG ---
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 Patient appears markedly improved with better insight and reports remission of AH for 24hours. Patient should have consistent stability and remission of AH prior to discharge , due to having 4yo and 6yo children. Plan: Short Term Certification, Court Ordered Medications (expires August 22, 2017) Continue Ativan 1mg PO/IM TID Continue Seroquel 37.5mg PO QHS, monitor for catatonia or hypotension Monitor PO fluid intake, %meals eaten, monitor for 30 minutes after meals Dry dressing BID to left wrist wound Coordinate discharge planning with and brother 15 minute safety/SPI checks Plan discharge Thursday06/15/17 if improvement in symptoms consistent/stable 06/12/17 10:57 Subjective: CC: "Very well" Patient reports no AH for 24hours. Reports if AH re-occur, she will 'ignore it. ' Reports she is in agreement to coordinate discharge planning with family and is willing to take medications after discharge. Denies thoughts of fasting or harming self again. Denies side effects from Seroquel. Reports good visit with and children last night. Reports she will talk to staff if having recurrence of thoughts of self-harm or fasting. Objective: Vital Signs Temp Pulse Resp BP Pulse Ox 36.6 C 73 14 101/57 L 95 06/12/17 06:43 06/12/17 06:43 06/12/17 06:43 06/12/17 06:43 06/12/17 06:43 Microbiology 06/10/17 12:55 Gram Stain - Final Wrist - Swab Laboratory Results 06/09/17 06:00 06/09/17 06:00 06/11/17 06/12/17 06/13/17 05:59 05:59 05:59 Intake Total 2600 1600 Balance 2600 1600 Alert thin WF. Ambulatory without weakness. Erythema left wrist, healing without worsening swelling. No focal weakness or sensory loss in left hand. Speech RRR. Mood 'very well.' Affect euthymic. Thoughts briefly organized with limited detail. Denies SI or HI or AH. Denies command AH. Insight limited. Judgment appropriate regarding need for continued treatment. Staff report patient slept 7.5 hours. Ate 50% of breakfast today but had 75% of meals yesterday. Calm on unit, quiet, isolative, able to attend some groups. - Time Spent With Patient Time Spent With Patient: 20 minutes - Pending Discharge Pending Discharge Within 24 Hours: No Pending Discharge Within 48 Hours: No ICD10 Worksheet Patient Problems: Problems Problem Status Onset Acute psychosis Acute Bipolar disorder, unspecified Acute Catatonia Acute Dehydration Acute Eating disorder Acute Volume depletion Acute
[2017-06-12] MEDS: QUEtiapine FUMARATE 25 MG TAB PO SCH (20:21)
[2017-06-13] MEDS: LORazepam 1 MG TAB PO SCH ×3 (09:10→21:27)
[2017-06-13] MEDS: FOLIC ACID 1 MG TAB PO SCH (09:10)
[2017-06-13] MEDS: FERROUS SULFATE 325 MG TAB PO SCH (09:10)
--- NOTE | 2017-06-13 16:14 | SOAPPROG ---
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 taking medications. Off 1:1 just a few days ago. Continues to eat/drink well at each meal. Has been ignoring and not responding to any AH. family/friend s visiting regularly. On eval, reports no audible AH, but reports she continues "praying, meditating and contemplating to purify" her soul. Recognizes now that if she receives any messages to do anything that would cause self harm (restricting po intake, cutting on self), she will "not listen to them...that/s not the right approach. " Feels most important realization was after talking with her brother, who told her that he had talked to those in his tenriism (lives out of state) who stated any message to cause harm to self would not be from God. Pt felt this was such a revelation, she attributes her improvement and ability to resist the wrong "messages"/(?voices) to this conversation with her brother last week. Also states it has "helped to be here, in a safe place, while I made mistakes." States she will "work with [employer]" after discharge, which she is hoping is next week. Talked some of her decision to leave her , divorce postponed until mid month from last month due to her inpt status. Feels this decision is the right one she made, and was prior to any onset of her current psychiatric sxs. Denied any medication s/e. Reports sleeping well. MSE: calm, cooperative, good EC, nml psychom activity. sits with erect posture, full eye contact and smiling. mood "fine", affect with smile throughout most of interview. not overtly appearing to respond to internal stimuli. denied audible AH. indicated she still receives messages but if any are negative, she feels able to ignore them. denied any SI or thoughts to harm others. cognition conversationally intact. Plan: STM, c.o. meds (exp 08/22/17) Continue Ativan 1mg PO/IM TID and Seroquel 37.5mg PO QHS, no evid of catatonia or hypotension. May need incr Seroquel in outpt setting with less structure Cont , monitor PO fluid intake and %meals eaten, monitor for 30 minutes after meals; cont dressing changes/wound care Coordinate discharge planning with and brother Cont 15 minute safety/SP I checks Objective: Vital Signs Temp Pulse Resp BP Pulse Ox 36.6 C 76 14 95/54 L 95 06/13/17 07:05 06/13/17 07:05 06/13/17 07:05 06/13/17 07:05 06/13/17 07:05 Microbiology 06/10/17 12:55 Gram Stain - Final Wrist - Swab Wound Culture - Final Laboratory Results 06/09/17 06:00 06/09/17 06:00 06/12/17 06/13/17 06/14/17 05:59 05:59 05:59 Intake Total 1600 1000 Balance 1600 1000 - Time Spent With Patient Time Spent With Patient: 35min - Pending Discharge Pending Discharge Within 24 Hours: No Pending Discharge Within 48 Hours: No ICD10 Worksheet Patient Problems: Problems Problem Status Onset Acute psychosis Acute Bipolar disorder, unspecified Acute Catatonia Acute Dehydration Acute Eating disorder Acute Volume depletion Acute
[2017-06-13] MEDS: QUEtiapine FUMARATE 25 MG TAB PO SCH (21:27)
[2017-06-14] MEDS: FERROUS SULFATE 325 MG TAB PO SCH (10:00)
[2017-06-14] MEDS: FOLIC ACID 1 MG TAB PO SCH (10:00)
[2017-06-14] MEDS: LORazepam 1 MG TAB PO SCH ×3 (10:00→20:55)
[2017-06-14] MEDS: QUEtiapine FUMARATE 25 MG TAB PO SCH (20:55)
--- NOTE | 2017-06-15 02:33 | SOAPPROG ---
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 taking medications. Off 1:1 just a few days ago. Continues to eat/drink well at each meal. Has been ignoring and not responding to any AH. family/friend s visiting regularly. On eval, reports no audible AH, but reports she continues "praying, meditating and contemplating to purify" her soul. Recognizes now that if she receives any messages to do anything that would cause self harm (restricting po intake, cutting on self), she will "not listen to them...that/s not the right approach. " Feels most important realization was after talking with her brother, who told her that he had talked to those in his orthodoxy (lives out of state) who stated any message to cause harm to self would not be from God. Pt felt this was such a revelation, she attributes her improvement and ability to resist the wrong "messages"/(?voices) to this conversation with her brother last week. Also states it has "helped to be here, in a safe place, while I made mistakes." States she will "work with [employer]" after discharge, which she is hoping is next week. Talked some of her decision to leave her , divorce postponed until mid month from last month due to her inpt status. Feels this decision is the right one she made, and was prior to any onset of her current psychiatric sxs. Denied any medication s/e. Reports sleeping well. MSE: calm, cooperative, good EC, nml psychom activity. sits with erect posture, full eye contact and smiling. mood "fine", affect with smile throughout most of interview. not overtly appearing to respond to internal stimuli. denied audible AH. indicated she still receives messages but if any are negative, she feels able to ignore them. denied any SI or thoughts to harm others. cognition conversationally intact. Plan: STM, c.o. meds (exp 08/22/17) Continue Ativan 1mg PO/IM TID and Seroquel 37.5mg PO QHS, no evid of catatonia or hypotension. May need incr Seroquel in outpt setting with less structure Cont , monitor PO fluid intake and %meals eaten, monitor for 30 minutes after meals; cont dressing changes/wound care Coordinate discharge planning with and brother Cont 15 minute safety/SP I checks 06/14/17 15:33 slept 8.5hr. had good visit with friend, kids yesterday. continues to eat and sleep well. On eval, pt reports feeling good. continues with prayer and meditation. Not engaging in any self-harming bx, nor entertaining any such thoughts. imagines/ visualizes (denies VH) herself walking on a [place] with steep drop offs to either side, and feels she is able to maintain being strong. states here in hospital was glad for the help, but her life is "imbalanced" here b/c she needs to return to her work and kids which will balance her. Does state the "messages " are still "there, if you choose to decipher them" but does not choose to give them any attention. Feels she is strong enough to continue resisting any 'messages' which would cause her to engage in any direct or indirect self harm. When asked how she has been able to maintain this feeling strong, despite admittedly still experiencing the messages and voices ("I put the voices away"), she politely stated, "I'd rather not say." Discussed w/pt her upcoming transition to [facility] and need for continued communication with outpt psychiatrist there, and consistency with medications, also how Sxs could return or increase with decr in structure etc. Pt expressed understanding and, after expressing confidence in ability to maintain stability after d/c, eventually did agree to t/w outpt provider if feeling negative messages return or increase. Polite, casually dressed, sitting in erect manner, affect calm with smile, no evid of responding to int stim, but pt suggests int stim or at least the messages, are still present. but able to ignore or "resist" any negatives ones. i/j-expressed good but seems not convinced she has a mental illness, adding that she primarily felt better after talking w/ her brother as noted above. Denied any SI or thoughts to harm others. Was noted later afternoon engaging in yoga in her room. PLAN; as above on 06/13. may be d/c this week to [facility]. pt is looking fwd to this has been med compliant Objective: Vital Signs Temp Pulse Resp BP Pulse Ox 36.5 C 68 14 98/58 L 98 06/14/17 06:50 06/14/17 06:50 06/14/17 06:50 06/14/17 06:50 06/14/17 06:50 Laboratory Results 06/09/17 06:00 06/09/17 06:00 06/13/17 06/14/17 06/15/17 05:59 05:59 05:59 Intake Total 1000 1000 2800 Balance 1000 1000 2800 - Time Spent With Patient Time Spent With Patient: 20min - Pending Discharge Pending Discharge Within 24 Hours: No Pending Discharge Within 48 Hours: No ICD10 Worksheet Patient Problems: Problems Problem Status Onset Acute psychosis Acute Bipolar disorder, unspecified Acute Catatonia Acute Dehydration Acute Eating disorder Acute Volume depletion Acute
[2017-06-15 07:00] VITALS: BP 94/51
[2017-06-15] MEDS: FERROUS SULFATE 325 MG TAB PO SCH (08:00)
[2017-06-15] MEDS: FOLIC ACID 1 MG TAB PO SCH (08:00)
[2017-06-15] MEDS: LORazepam 1 MG TAB PO SCH (08:00)
--- NOTE | 2017-06-15 09:55 | BDS ---
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 She is originally from [facility]. She is estranged from her , who is the caregiver for her 2 children. 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 REASON FOR ADMISSION: Please see psychiatric evaluation from May 25, 2017. The patient had been transferred to [facility] after a brief hospitalization here on [address] [place] [address] on May 21 and May 22. The patient was at the [facility] from May 22 to May 24 after she developed catatonia on the inpatient unit after receiving olanzapine 2.5 mg. In the [facility], she received IV fluids as well as IV lorazepam 1 mg 4 times a day for catatonia. Over at [facility] on May 23, she superficially cut her left wrist multiple times with a utensil. The patient had been on the inpatient unit at [address] [place] [address] on May 21 and May 22. Prior to that she apparently had had a 6-day episode of severe insomnia, not eating, not drinking, isolating to her room, acting bizarre, urinating in a jar, not taking care of herself, not being able to work, not being able to take care of her children. Preceding that the patient had a personality change starting in December 2016. She apparently had erratic behavior, hyperreligious thoughts, feeling connected to spirits that she had read about in a book. She also apparently had a mission from God to have a child with someone for God. She also had been having command auditory hallucinations telling her to fast and not eat or drink and to 'purify' herself. The patient got olanzapine 2.5 mg on May 21 after being admitted due to appearing to have a mixed bipolar episode with psychotic features. Subsequent to that, the patient was nonresponsive, mute, catatonic, and despite 2 doses of lorazepam was then transferred over to [facility]. There, she cut her wrist with the utensil on May 23. She received IV fluids for 48 hours and IV lorazepam 1 mg 4 times a day. She had a head CT over there that was within normal limits. HOSPITAL COURSE: After being readmitted to the inpatient unit, the patient was continued on lorazepam for catatonia. This was eventually increased up to 2 mg 3 times a day. The patient had episodic command auditory hallucinations to fast and had intermittent episodes during which she would not eat or drink. She also had waxing and waning catatonia where she would stand and stare, would be mute, would posture in a bizarre manner, or would be completely unresponsive. This waxed and waned. She was on intake and output monitoring due to poor p.o. intake and risk of dehydration, along with low weight, throughout the hospitalization. The patient improved and came out of her catatonia with up to 6 mg of lorazepam. The patient was a candidate for emergency ECT. She declined to have ECT as a treatment for catatonia and severe mood disorder with psychotic features. The patient did have a second opinion for ECT by Dr. Fortune on May 27, 2017, who agreed with the patient's diagnosis of catatonia and probable bipolar disorder with mixed and psychotic features. She was later started on lithium as a mood stabilizer. The patient took this for several nights, but then refused to take it, and eported she felt excessively sedated. She also did not want to take lithium due to concern about her sister having taken it and had excessive sedation as well. The weekend of May 30 the patient refused to take lithium. On June 01, the patient was started on Abilify 1 mg. This was then increased to 2 mg and then 4 mg and then eventually 7.5 mg. The patient did not have any clear improvement with this medication, continued to have waxing and waning auditory hallucinations commanding her to fast, labile affect, sometimes appearing grandiose and euphoric and other times appearing anxious and depressed. On June 03 in the morning, the patient cut her wrist with a broken CD. The patient was sent to the emergency room. This was washed and cleaned and did not require suturing and she returned to the unit with instructions to have dry dressings on her wrist. On evening June 04 and on ThursdayJune 05, the patient did not eat at all and then on ThursdayJune 06 had hypogylcemia. Subsequent to that she started eating again after discussion regarding possible medical hospitalization and NG tube for forced feeding. The patient after that was tried on higher dose of Abilify up to 7.5 mg, but did not have any clear improvement. On June 08 she reported continued command auditory hallucinations to fast. The Abilify was discontinued. The patient then had baseline blood work to start Clozaril. The patient did not have an outpatient provider that can monitor Clozaril, however. The patient was then switched to Seroquel starting on June 09. This was started at a very low dose 12.5 mg and increased to 25, then to 37.5 mg. The lorazepam was able to be reduced down to 1 mg 3 times a day for catatonia. The patient had a slow improvement. She had improved insight, improved coping skills. She was better able to recognize that she had been having command auditory hallucinations and was able to ignore them. She was able to eat and drink consistently prior to discharge. Prior to June 10 the patient had waxing and waning paranoia and hostility toward her brother from [place] and her , and would not meet with them consistently. However, after approximately June 10, the patient was more cooperative, pleasant, able to have regular visits from her family, and conversations regarding discharge planning. The patient on the unit had dry dressings to her left wrist lacerations. These were monitored by the hospitalist, Dr. Marroquin. The patient had a marked improvement as far as consistently eating and drinking prior to discharge. She was also consistently meeting with her , and talking with him and her brother regarding discharge planning. She was also able to have positive and appropriate visits with her children supervised on the unit. There was concern prior to discharge the patient will be returning to stay with her estranged . The patient and her had filed for divorce, and there is concern about her returning to live with him with small children considering her psychotic episode and self-injurious behavior. The patient's and her brother in [place] were able to locate a residential program called [facility] for the patient to transition to after discharge. Overall, the patient on the unit had marked improvement in her behavior with remission of catatonia, improvement in her mood stability, and remission of her auditory hallucinations prior to discharge. The patient was found to have mild anemia and was started on iron and folic acid. The patient was warned about the risks of lorazepam causing sedation, falls, cognitive impairment, driving impairment, and withdrawal anxiety or seizures if stopped abruptly; she was also warned that this medication may cause defects or miscarriage. She was provided handouts on Lorazepam and Seroquel. She was counseled about the risk of sedation, metabolic syndrome, orthostatic hypotension, syncope, and tardive dyskinesia with Seroquel. CONDITION ON DISCHARGE: She is an alert white female who is somewhat thin. She is ambulatory, cooperative, and pleasant. She has superficial on her left wrist that are healing. Her speech is regular rate and rhythm. Her thoughts are briefly organized with limited detail. Her mood is "very well." Her affect is euthymic and pleasant. She denies any thoughts to hurt herself or others. She denies command hallucinations or other hallucinations. There are no evident delusions. Her insight is limited. Her judgment is appropriate concerning needing to eat and drink, and continue treatment after discharge. CONSULTS: As noted above, the patient was seen in the [facility] Emergency Room on June 03 after she cut her left wrist with a broken CD. Her wrist was washed. There were no sutures placed. She was given dry dressings after that. Dr. Fortune did a second opinion regarding the possible benefit of ECT on may 27, 2017. PROCEDURES: None. LAB RESULTS: White blood cell count 4.9, hemoglobin 11.8, platelet count 268. Sodium 139, potassium 3.9, creatinine 0.6, glucose 62, calcium 8.7, magnesium 2.0, phosphorus 3.9. CK 41. Urinalysis was normal. AST 28, ALT 32. Triglycerides 135, LDL 93, HDL 75. B12 was greater than 1000. TSH was 3.5. Serum beta HCG was negative. The patient's urine drug screen was negative in the emergency room. DISCHARGE DIAGNOSES: 1. Catatonia. 2. Bipolar disorder type 1, most recent episode manic, severe, with mixed and psychotic features. 3. Dehydration. 4. Self-inflicted lacerations to left wrist. 5. Anemia. DISCHARGE MEDICATIONS: Seroquel 37.5 mg p.o. h.s., Ativan 1 mg p.o. t.i.d. for catatonia, ferrous sulfate 325 mg daily for anemia, folic acid 1 mg p.o. daily for anemia, Tylenol 650 mg p.o. q.4 hours p.r.n. for pain. DISPOSITION: The patient is being transferred to [facility] which is a residential program operated by [facility]. FOLLOWUP: The patient will be seen by either Dr. Hennessy or Dr. Gray for psychiatric management at [facility]. The patient and her family go to [facility] at [address], [place], [place] [address]. Phone number . The patient should follow up there within 1 week to re- examine her left wrist and to recheck her anemia and to possibly start long acting contraception. OTHER INSTRUCTIONS: Patient is to have a dry dressing to her left wrist for 1 week. LEGAL STATUS: The patient was admitted on an M1 hold and placed on a short- term certification. This is dated May 25, 2017. She stipulated for this with court-ordered medications. Court-ordered medications include Risperdal, Invega, Zyprexa, Geodon, Abilify, Cogentin, Benadryl, lorazepam, and clonazepam. The court-ordered medications do not include Seroquel which the patient is taking at bedtime for bipolar depression with psychotic features, but does include Lorazepam which can be given IM if the patient refuses oral lorazepam. This certification and court-ordered medications August 22, 2017. /[id number]/MODL MTDD
== END 2017-06-15 10:07 | DRG 884 ==
LOC: EDUNIT# → BBEH 05-24 12:55
PROVIDERS: ADMIT Psychiatry & Neurology Behavioral Neurology & Neuropsychiatry
DX: F06.1 Catatonic disorder due to known physiological condition (principal); F31.2 Bipolar disorder, current episode manic severe with psychotic features; E86.0 Dehydration; D64.9 Anemia, unspecified; E16.2 Hypoglycemia, unspecified; R44.0 Auditory hallucinations; S61.512D Laceration without foreign body of left wrist, subsequent encounter; X78.8XXD Intentional self-harm by other sharp object, subsequent encounter; R63.6 Underweight; Z68.1 Body mass index [BMI] 19.9 or less, adult; F34.0 Cyclothymic disorder; Z63.5 Disruption of family by separation and divorce; Z81.8 Family history of other mental and behavioral disorders
CPT/HCPCS: J2060

== ENCOUNTER 2017-05-22 12:26 | Inpatient (IN) | payer OTHER ==
[2017-05-22] MEDS ORDERED: NS 1,000 ML IV ONE (12:33)
--- NOTE | 2017-05-22 13:17 | EDPHY ---
H & P Time Seen by Provider: 05/22/17 12:33 HPI/ROS: CHIEF COMPLAINT: catatonia HISTORY OF PRESENT ILLNESS: 41-year-old female presents with catatonia. She was recently seen in this emergency department for severe depression and anorexia related to depression. Recent stressors include undergoing a divorce. She was admitted to [address] [place] [address]. Since admission at [address] [place] [address], she has been catatonic and has been receiving IV Ativan. She was seen in this emergency department at 2:00 a.m. this morning because of catatonia after receiving a medication. CT scan of the brain was unremarkable. She was given IV fluids and Ativan and sent back to [address] [place] [address]. However she continues to be catatonic and is refusing to eat or drink. Sent to the ED for admission to ICU and IV Ativan. REVIEW OF SYSTEMS: Unable to determine Past Medical/Surgical History: Depression Social History: undergoing a divorce Smoking Status: Never smoked Physical Exam: General Appearance: Flickering of eyelids with painful stimulation Eyes: Pupils equal and round, 3 mm, no conjunctival pallor ENT, Mouth: Mucous membranes moist Neck: Normal inspection Respiratory: Lungs are clear to auscultation anteriorly Cardiovascular: Regular rate and rhythm Gastrointestinal: Abdomen is soft and nontender Neurological: Grimaces to painful stimuli, otherwise not moving extremities Skin: Warm and dry Extremities: Normal inspection Psychiatric: Unable to determine Constitutional: Initial Vital Signs Temperature (C) 37.2 C 05/22/17 12:34 Heart Rate 99 05/22/17 12:34 Respiratory Rate 16 05/22/17 12:34 Blood Pressure 123/84 H 05/22/17 12:34 O2 Sat (%) 99 05/22/17 12:34 O2 Delivery Mode Room Air Allergies/Adverse Reactions: No Known Allergies Allergy (Unverified 05/20/17 19:41) Home Medications: Medication Instructions Recorded LORazepam [Ativan (*)] 2 mg PO TIDMEAL tab 05/22/17 LORazepam [Ativan inj 2 mg/ml (*)] 2 mg IM TIDMEAL inj 05/22/17 Medical Decision Making - Diagnostics Imaging Results: Chest x-ray independently reviewed by me reveals no acute disease. ED Course/Re-evaluation: This patient presents with catatonia and refusing to eat or drink. I received a phone call from the [address] [place] [address] psychiatrist prior to arrival. He requests IV fluid, Ativan 1 mg four times daily and workup for possible infection. She is on a short-term mental health certification and [facility] will accept her back once she is medically cleared. IV normal saline 1 L and Ativan 0.5 mg IV given. She is unable to provide any clinical history, so history was through the patient's medical record and her . I do not suspect infection in this patient. Her white blood cell count today is normal and she does not have a fever. Labs c/w dehydration, IVF infusing. Initial glucose is borderline at 63. Since she is not eating/drinking, D50 1/2amp IV given. The catatonia is most likely secondary to severe depression and possibly a medication effect. She was stable throughout her emergency department stay. Dr. Ramirez was consulted for admission. She will be admitted to the ICU under the hospitalist service. Critical care considered, but clinical presentation does not meet criteria and time spent is less than 35 min. Differential Diagnosis: Altered mental status including but not limited to hypoglycemia, infectious process, electrolyte abnormality, head injury and intoxicants. - Data Points Medications Given: Potassium Chloride/Dextrose/Sod Cl (D5w 1/2 Ns W/ 20 Kcl/L) 1,000 mls @ 100 mls /hr IV CONT WANDER Stop: 11/18/17 15:44 Last Admin: 05/22/17 16:02 Dose: 1,000 mls Lorazepam (Ativan Injection) 1 mg IVP Q6H WANDER Stop: 11/18/17 15:44 Last Admin: 05/23/17 04:48 Dose: Not Given Pantoprazole Sodium (Protonix) 40 mg IVP DAILY WANDER Stop: 11/18/17 15:59 Last Admin: 05/22/17 16:09 Dose: 40 mg Discontinued Medications Dextrose (Dextrose 50% Syringe) 12.5 gm IVP EDNOW ONE Stop: 05/22/17 15:02 Last Admin: 05/22/17 15:09 Dose: 12.5 gm Sodium Chloride (Ns) 1,000 mls @ 0 mls/hr IV ONCE ONE; Wide Open PRN Reason: Protocol Stop: 05/22/17 12:34 Last Admin: 05/22/17 13:22 Dose: 1,000 mls Lorazepam (Ativan Injection) 0.5 mg IVP EDNOW ONE Stop: 05/22/17 13:21 Last Admin: 05/22/17 13:25 Dose: 0.5 mg Lorazepam (Ativan Injection) 0.5 mg IVP Q6H WANDER Stop: 11/18/17 15:44 Last Admin: 05/22/17 17:25 Dose: Not Given Departure - Departure Disposition: [facility] Clinical Impression: catonia, Volume depletion Condition: Fair
[2017-05-22] MEDS ORDERED: LORazepam 2 MG/ML INJ IVP ONE (13:20)
[2017-05-22] MEDS ORDERED: ACETAMINOPHEN 325 MG TAB PO PRN (13:39)
[2017-05-22] MEDS ORDERED: ONDANSETRON 4 MG/2 ML VIAL IVP PRN (13:39)
[2017-05-22 14:45] LABS: PLATELET COUNT 179 10^3/uL (150-400)
[2017-05-22] MEDS ORDERED: D50W 25 GM/50 ML SYR IVP ONE (15:01)
[2017-05-22] MEDS ORDERED: LORazepam 2 MG/ML INJ IVP PRN (15:42)
[2017-05-22] MEDS ORDERED: LORazepam 2 MG/ML INJ IVP SCH (15:45)
[2017-05-22] MEDS: LORazepam 2 MG/ML INJ IVP SCH ×3 (16:02→23:32)
[2017-05-22] MEDS: D5W 1/2 NS W/ 20 KCl/L 1,000 ML IV SCH (16:02)
[2017-05-22] MEDS: PANTOPRAZOLE SODIUM 40 MG VIAL IVP SCH (16:09)
--- NOTE | 2017-05-22 16:21 | GHP ---
[f rep st] HISTORY AND PHYSICAL DATE OF ADMISSION: 05/22/2017 CHIEF COMPLAINT: Catatonia. HISTORY OF PRESENT ILLNESS: This is a 41-year-old female who was seen in the emergency department fo r severe depression and anorexia. Was subsequently admitted to [address] [place] [address]. [address] [place] [address] she has been cat atonic and has been receiving IV Ativan. [facility] morning where a CT scan of the brain was done which was unremarkable . She was subsequently sent back to [address] [place] [address]. This morning the patient continued to be catatonic and refusing to eat or drink, and was sent back to the emergency department, where I have been asked to admit her. During the time of my exam, the patient is nonverbal. All history was obtained via revie w of records. PAST MEDICAL HISTORY: Depression. PAST SURGICAL HISTORY: Unobtainable. HOME MEDICATIONS: Unobtainable. ALLERGIES: No known drug allergies per [facility] [employer]. SOCIAL HISTORY: Unobtainable. FAMILY HISTORY: Unobtainable. REVIEW OF SYSTEMS: A comprehensive 10-point review of systems was attempted; however, this was unobt ainable since the patient is nonverbal and not following commands. PHYSICAL EXAM: VITAL SIGNS: Blood pressure 122/79, pulse of 79, respiratory rate 16, O2 sat 98% on room air. Temperature afebrile. GENERAL: No acute distress. HEAD: Normocephalic, atraumatic. EY ES: PERRLA. Sclerae anicteric. MOUTH: Moist mucous membranes. NECK: Supple. No lymphadenopathy . CARDIOVASCULAR: S1, S2. No murmurs, rubs, clicks, gallops, or JVD. No lower extremity edema. P ULMONARY: Lungs are clear. No wheezes, rales, or rhonchi. ABDOMEN: Soft, nontender, nondistended. No guarding or rebound tenderness. Normoactive bowel sounds. EXTREMITIES: No clubbing or cyanosi s. NEURO: Once again, the patient is not following commands. She has no spasticity. DTRs are symm etric at the patella. There is no nuchal rigidity. DIAGNOSTICS: WBC 7.9, hemoglobin 12.1, hematocrit 34.9, platelets 179. Sodium 147, potassium 3.4, chloride 116, CO2 20 BUN 22, creatinine 0.6, glucose TSH done o n 05/20/2017, was within normal limits. Urine tox was unremarkable. Salicylate and acetaminophen levels from the were negative. Ethyl alcohol was negative. Chest x-ray, which I visualized and personally interpreted, was negative for infiltrates. Head CT done earlier this morning during her last emergency department stay showed no acute findings. ASSESSMENT AND PLAN: This is a 41-year-old female transferred from [facility] with history of severe depression presenting with: 1. Acute encephalopathy which seems to be most consistent with acute catatonia. Plan: The patient will be admitted to the ICU since she is currently on M1 hold. Psychiatry has recommended a neurolog y consult which has been ordered. Psychiatry has also recommended that she be treated with around-th e-clock intravenous Ativan which has been ordered. 2. Mild hypernatremia, most likely due to hypovolemia in the setting of not eating or drinking. Terry n: will start maintenance D5 half-normal saline with 20 mEq of KCl and repeat labs in the morning. 3. Mild normocytic anemia without any signs of active bleeding. Plan: Continue to monitor. The patient will be admitted to the hospital under inpatient status. She is high risk for venous thr omboembolism and will be placed on deep venous thrombosis prophylaxis. We will also order intravenou s Protonix since she is not eating for stress ulcer prophylaxis. /[id number]/MODL
--- NOTE | 2017-05-22 16:58 | PDMN ---
Medical Necessity Medical necessity: Pt meets INPT criteria per DO and [facility] [place] [place] Neurology [facility] (acute encephalopathy most c/w acute catatonia requiring ICU care, [id number] IV Ativan, IVF; hypernatremia, anemia; comorbid severe depression; neuro consult pending).
[2017-05-23] MEDS: LORazepam 2 MG/ML INJ IVP SCH ×4 (04:48→22:02)
[2017-05-23 06:40] LABS: PLATELET COUNT 168 10^3/uL (150-400)
[2017-05-23] MEDS ORDERED: PROTOCOL POTASSIUM 1 DOSE MISC PRN (08:42)
[2017-05-23] MEDS ORDERED: POTASSIUM Cl (KCl) 100 ML IV SCH (10:03)
--- NOTE | 2017-05-23 10:03 | GCON ---
[f rep st] CONSULTATION NEUROLOGIC CONSULTATION REFERRING PHYSICIAN: Mitesh Ramirez DO HISTORY OF PRESENT ILLNESS: The history is obtained from reviewing the medical records, starting May, in the emergency department, as well as the additional psychiatric history and physical, and followup emergency room notes, and history and physical. I am also able to get information from the patient directly, which will be outlined. Basically, I am asked to see her related to her decreased level of interaction and near catatonic state. She first came to medical attention on May 20 w hen she presented to the emergency department on an M1 hold, when police had been called because she had not left her room in 5 days reportedly. She apparently is going through a divorce and she confir ms that, and says she has 2 children, but she says that things are moving relatively amicable. There was not a specific diagnosis of depression noted at that point or any other specific psychiatric ill ness. She had not been drinking fluid apparently for days. They were going to give her IV hydration , then she pulled out her IV. She, at that point had reported she was allergic to saline. She then eventually consented to another IV. She was then accepted after psychiatric evaluation screening to the Psychiatry Service. She had other comments documented during that initial emergency room visit, she was going through "asceticism procedure," and she was saying that the saline was "against her rel igion." She was alert and was able to answer some questions, and admitted she was hearing voices, bu t did go into any detail. As I am speaking to her this morning, she is able to only relate that she has stopped eating and drinking related to concerns about cancer. I will detail that further in my e xamination. 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 She lived in [facility] until age 21, when she moved to [facility]. Please see that admission history and physical to the psych service. Their comments, which she confirms in my discussion about not eating and drinking to "clear my mind, so I have clear though ts." And she has some holiness references. The assessment was that she probably was bipolar type 1 , with a manic severe episode and psychotic features, and possible anorexia nervosa. She came to the emergency department yesterday afternoon for medical management and further evaluations for her safe ty. She was receiving Ativan, and Dr. Ramirez accepted her for admission. When he saw her, she was co ntinuing to be catatonic and was nonverbal when he tried to communicate with her. He could not obtai n any specific history. She was not following any of his commands at the time. Psychiatry service a lso recommended neurology consultation, as the course of workup has continued. FAMILY HISTORY: She tells me her mother has a history of lymphoma, but is still living, and apparent ly her father had some type of cancer. SOCIAL HISTORY: There is no history of alcohol or drug abuse that is known. She is not a smoker. N o drug allergies. Descriptions are she lives with a roommate, and is estranged from her , and going through divorce which she says is supposed to be completed on the of this month. She has children, age 4 and 6. CURRENT MEDICATION: Lovenox, lorazepam 1 mg every 6 hours, Protonix, IV fluid. Tylenol as needed. PHYSICAL EXAM: VITAL SIGNS: The blood pressure is 118/78, pulse of 84, respirations 18, temperature 37.1, she has remained afebrile throughout the hospitalization. GENERAL: She is thin and looks mal nourished. NECK: Supple. CARDIAC: Regular rate and rhythm. No murmur. NEURO: Her eyes were ini tially closed when I went into see her, but after just a few moments, she opened her eyes and had a c onversation with me. She was able to describe what she is feeling and denies any numbness, but says she is just generally fatigued, without focal weakness. She could describe for me her job, as well a s her family situation in general. I asked her if she had any specific questions for me and she bega n to discuss concerns that she was having abnormal sensations, for which she has spoken to a man she is connecting with, in what sounds like a spiritual sense, rather than a literal person, and tells me that this person confirmed that she has cancer in her body. She wanted me to try and find the cance r that is probably in her body somewhere and has a very fixed belief that this is something that has been confirmed by this person or male entity she is referring to in a vague sense. She will sometime s smile when I am communicating with her, in context to questions, but not in an inappropriate fashio n. She speaks with a very soft voice and is not overtly hallucinating. She is generally oriented, b ut has poor insight about her situation. Pupils are 3 mm and reactive. Extraocular movements are in tact. Normal facial sensation and strength. She has decreased muscle bulk, but essentially normal s trength for her overall musculature. Sensation is preserved for temperature throughout. Reflexes ar e about 2+ and symmetric. No pathologic reflexes. LABORATORY STUDIES: Shows hematocrit currently at 32%, white count now at 7000, normal sedimentation rate. Chemistry showed sodium is 140, potassium 3.2, bicarb 26, BUN 9, creatinine 0.4, calcium 8.1. Liver enzymes normal. C-reactive protein less than 5. Tox screen was negative. IMPRESSION: Total unit time was 70 minutes. The patient does not appear to have an acute neurologic disorder, but rather a primary psychiatric disorder, leading to some psychotic thinking, with some r eligious delusions, and feelings that she has cancer. This is most likely related to her social situ ation, going through divorce. I do not believe this is a form of malignant hyperthermia or seizure d isorder. I would defer all management decisions to Psychiatry when it comes to the behavioral treatm ents and explained to the patient any decisions for evaluation of cancer would be made through the spitalist group. I will not follow up unless further questions arise. /[id number]/MODL
[2017-05-23] MEDS: PANTOPRAZOLE SODIUM 40 MG VIAL IVP SCH (10:29)
[2017-05-23] MEDS: POTASSIUM Cl (KCl) 10 MEQ in NS 100 ML IV SCH ×4 (11:02→15:11)
[2017-05-23] MEDS: ENOXAPARIN 40 MG/0.4 ML SYR SC SCH (11:02)
--- NOTE | 2017-05-23 11:21 | HOSPPROG ---
Hospitalist Progress Note Assessment/Plan: #Delusions, Psychosis #Catatonia, resolving #Hypernatremia, resolving #Dehydration, resolving #Mild normacytic anemia Plan: She reports that she is going through a one week cleansing diet where she is not supposed take anything by mouth, no food, no drinks. She says she has 2 more days left and will not take anything till then. She reports that she has spoke to God twice and that he has told her to continue with the diet. 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 She says she is in constant communication with a Man who is the go between her and God. She does not appear to have an underlying neurological etiology. Neuro has signed off [facility] Regular diet Dispo: she needs to be eating and drinking in order for a safe discharge to [address] [place] [address]. She cannot be on IV medications. Subjective: delusions Objective: Vital Signs Temp Pulse Resp BP Pulse Ox 37.1 C 84 18 118/78 97 05/22/17 16:29 05/23/17 07:48 05/23/17 07:48 05/23/17 07:48 05/23/17 07:48 Laboratory Results 05/23/17 06:30 05/23/17 06:30 05/22/17 05/23/17 05/24/17 05:59 05:59 05:59 Intake Total 1000 Output Total 2100 Balance -1100 - Time Spent With Patient Time Spent with Patient: greater than 35 minutes Time Spent with Patient: Greater than 35 minutes spent on this patients care, greater than 50% of time spent counseling, educating, and coordinating care regarding the above mentioned plan. - Physical Exam Constitutional: no apparent distress Eyes: PERRL, EOMI Ears, Nose, Mouth, Throat: moist mucous membranes, hearing normal Cardiovascular: edema Respiratory: no respiratory distress Gastrointestinal: normoactive bowel sounds, soft, non-tender abdomen Skin: warm Neurologic: AAOx3 Psychiatric: other (delusions), No interacting appropriately Lymph, Heme, Immunologic: No petechiae ICD10 Worksheet Patient Problems: Problems Problem Status Onset Volume depletion Acute Acute psychosis Acute Bipolar disorder, unspecified Acute Dehydration Acute Eating disorder Acute
[2017-05-23] MEDS: D5W 1/2 NS W/ 20 KCl/L 1,000 ML IV SCH ×2 (12:40→22:04)
--- NOTE | 2017-05-23 13:33 | CPEKG ---
Heart Rate: 93 RR Interval: 645 P-R Interval: 160 QRSD Interval: 86 QT Interval: 356 QTC Interval: 443 P [place]: 75 QRS [place]: 102 T Wave [place]: 91 EKG Severity - ABNORMAL ECG - EKG Impression: SINUS RHYTHM EKG Impression: RIGHT AXIS DEVIATION EKG Impression: NONSPECIFIC T ABNORMALITIES, LATERAL LEADS Electronically Signed By: Flaco Michelle 24-May-2017 12:09:19
--- NOTE | 2017-05-23 17:47 | ASMTCMCOM ---
CM Note CM Note Notes: Pt transferred from [address] [place] [address] to ED and then to ICU. Discussed w/Ramona, SIGNAL MAINTENANCE TECHNICIAN, dc plan. Notified Sherrie in [facility] and Dr Ramos (psych) consulted on pt. Plan is for pt to continue w/IV fluids today and most likely dc back to tomorrow. Date Signed: 05/23/2017 05:47 PM Electronically Signed By:Tracy Navas RN
[2017-05-24 03:05] LABS: PLATELET COUNT 195 10^3/uL (150-400)
[2017-05-24] MEDS: LORazepam 2 MG/ML INJ IVP SCH ×2 (04:47→09:02)
[2017-05-24 07:58] VITALS: PULSE 94
[2017-05-24] MEDS: ENOXAPARIN 40 MG/0.4 ML SYR SC SCH (09:07)
[2017-05-24] MEDS: D5W 1/2 NS W/ 20 KCl/L 1,000 ML IV SCH (09:07)
[2017-05-24] MEDS: PANTOPRAZOLE SODIUM 40 MG VIAL IVP SCH (09:08)
--- NOTE | 2017-05-24 10:09 | NEUROPROG ---
Assessment: Total unit time of 15 minutes There is ongoing anorexia and likely delusions with no evidence of a separate primary neurologic disease. I will sign off and be available if questions arise. Subjective: Pt reports no new complaints Objective: Vital Signs Temp Pulse Resp BP Pulse Ox 36.8 C 94 20 110/72 96 05/24/17 07:57 05/24/17 07:57 05/24/17 07:57 05/24/17 07:57 05/24/17 07:57 Laboratory Results 05/24/17 02:55 05/23/17 05/24/17 05/25/17 05:59 05:59 05:59 Intake Total 1000 3933 Output Total 2100 800 Balance -1100 3133 She is lethargic but communicating with me similar to yesterday with telling she is happy we have found no signs of cancer Allergies/Adverse Reactions: No Known Allergies Allergy (Unverified 05/20/17 19:41)
--- NOTE | 2017-05-24 11:45 | PDIAF ---
- Diagnosis Diagnosis: catatonia Code Status: Full Code - Medication Management Discharge Medications: Medications to Continue on Transfer LORazepam [Ativan (*)] 2 mg PO TIDMEAL tab 05/22/17 [Last Taken Unknown] LORazepam [Ativan inj 2 mg/ml (*)] 2 mg IM TIDMEAL inj 05/22/17 [Last Taken Unknown] Discharge Medications: Refer to the Discharge Home Medication list for PRN reason. - Orders Diet Recommendation: no restrictions on diet Diet Texture: Regular Texture Diet - Follow Up Care Current Providers and Referrals: Patient,NotPresent [Primary Care Provider] -
--- NOTE | 2017-05-24 11:51 | PDDCSUM ---
Discharge Summary Discharge Summary: HPI/Hospital course: 41 yo educated female who was admitted from [facility] for Catatonia. Etiology was unclear. She was found to have dehydration and hypernatremia. She was started on IVF and hydration status is much improved and both dehydration and hypernatremia have resolved. She was seen by our Neurologist and he did not find any Neurological etiology including signs of HIGHER EDUCATION ADMINISTRATOR infection or seizure activity. He felt that the etiology was psychiatrical. TSH and B 12 were appropriate. EKG was ok. From a medical standpoint she is cleared for discharge back to [facility] for psych treatment including the possibility of ECT. this plan was previously discussed with . From a psych perspective, she continues to have delusions. She did drink a cup of water this morning which is a significant improvement. DDX: #Delusions, Psychosis #Catatonia, resolving #Hypernatremia, resolved #Dehydration, resolved #Mild normacytic anemia Exam: NAD AWAKE RRR CTA B S/NT/ND MEDS: PER PSYCH D/W TEAM DURING ROUNDS TOTAL TIME SPENT ON D/C IS 40 MINS
[2017-05-24 12:13] VITALS: BP 107/71; RESP 18; TEMP 97; O2SAT 97
--- NOTE | 2017-05-24 16:31 | ASMTLACE ---
ZIYADE Length of stay for Answers: 2 days current admission Acuity / Level of Answers: Yes Care: Did the patient have an inpatient admission? Comorbidities - select Answers: Other Notes: Catatonia, Depression, Eat all that apply ing diso # of Emergency department Answers: 1-2 visits in the last 6 months Social determinants Answers: Mental health diagnosis (anxiety, depression, pers onality disorders, etc.) Lack of community resources and/or lack of social support (no pcp, lives alone, transportation, fransisco d) Score: 14 Date Signed: 05/24/2017 04:30 PM Electronically Signed By:Katarzyna Mendez LCSW
--- NOTE | 2017-05-24 16:34 | ASMTCMCOM ---
CM Note CM Note Notes: [facility] has evaluated and patient to discharge to [facility]. Ramona ASSOCIATE PROFESSOR OF PHILOSOPHY reported that an M1 hold was completed 05/23/17 but could not be found today. MD Espitia had to complete another to be sent with patient. Date Signed: 05/24/2017 04:33 PM Electronically Signed By:Katarzyna Mendez LCSW
--- NOTE | 2017-05-24 16:34 | ASDISCHSUM ---
Discharge Information Plan Status:Psych Placement/Petitioned Medically Cleared to Leave:05/24/2017 Discharge Date:05/24/2017 12:29 PM CM D/C Disposition:[facility] IP ADT D/C Disposition:[facility] Projected Discharge Date:05/24/2017 12:00 PM Transportation at D/C:ALS/BLS Discharge Delay Reason: Follow-Up Date:05/24/2017 12:00 PM Discharge Slot: Final Diagnosis:Catatonia, not eating or drinking Placement Information Patient Contact Information Contact Name:ROSHAN Relationship:Other Address: Home Phone: Work Phone: City: Alternate Phone: State/[place] Code: Email: Financial Information Financial Class:HMO and PPO Plans Primary Plan Desc:[facility] [employer] PL[employer] Primary Plan Number:[id number] Secondary Plan Desc: Secondary Plan Number: Assessment Information [facility] CM Progress Note CM Note CM Note Notes: Pt transferred from [address] [place] [address] to ED and then to ICU. Discussed w/Ramona, CRM COORDINATOR, dc plan. Notified Sherrie in [facility] and Dr Ramos (psych) consulted on pt. Plan is for pt to continue w/IV fluids today and most likely dc back to tomorrow. Date Signed: 05/23/2017 05:47 PM Electronically Signed By:Tracy Navas RN LACE LACE Length of stay for Answers: 2 days current admission Acuity / Level of Answers: Yes Care: Did the patient have an inpatient admission? Comorbidities - select Answers: Other Notes: Catatonia, Depression, Eat all that apply ing diso # of Emergency department Answers: 1-2 visits in the last 6 months Social determinants Answers: Mental health diagnosis (anxiety, depression, pers onality disorders, etc.) Lack of community resources and/or lack of social support (no pcp, lives alone, transportation, frans[place] d) Score: 14 Date Signed: 05/24/2017 04:30 PM Electronically Signed By:Katarzyna Mendez LCSW [facility] CM Progress Note CM Note CM Note Notes: [facility] has evaluated and patient to discharge to [facility]. Ramona CRM COORDINATOR reported that an M1 hold was completed 05/23/17 but could not be found today. MD Espitia had to complete another to be sent with patient. Date Signed: 05/24/2017 04:33 PM Electronically Signed By:Katarzyna Mendez LCSW Intervention Information
== END 2017-05-24 12:29 | DRG 884 ==
LOC: EDUNIT# → EEVIPCON 13:20 → F2N 15:41
PROVIDERS: ADMIT Family Medicine; ATTEND Family Medicine
DX: F06.1 Catatonic disorder due to known physiological condition (principal); E87.0 Hyperosmolality and hypernatremia; E86.0 Dehydration; F22 Delusional disorders; D64.9 Anemia, unspecified
CPT/HCPCS: 80307; 82607-90; G0480; J2060; J3480

== ENCOUNTER 2017-06-03 08:41 | Emergency (ER) | payer OTHER ==
--- NOTE | 2017-06-03 08:46 | EDPHY ---
HPI/HX/ROS/PE/MDM Narrative: CHIEF COMPLAINT: Wrist laceration HPI: This patient is a 40 y/o female arriving from via EMS at the request of her psychiatrist for evaluation of left wrist lacerations sustained yesterday evening. She is currently undergoing inpatient treatment for bipolar disorder and suicidal ideation. Last night she obtained a CD and broke it, using the sharp edges to make self-inflicted lacerations across the volar aspect of her left forearm. Her psychiatrist requests evaluation of the wounds and repair if necessary. The patient denies any numbness or paresthesias in her hand. She has no further complaints. Per EMS report, patient vitals were stable in transport. She is pleasant and cooperative. REVIEW OF SYSTEMS: Aside from elements discussed in the HPI, a comprehensive 10-point review of systems was reviewed and is negative. PMH: Denies. SOCIAL HISTORY: Lives in [place]. Employed. . PHYSICAL EXAM: General:Patient is alert, in no acute distress. Left arm: There are a number of superficial abrasions/lacerations to left volar forearm. There are no suturable lacerations. Light touch sensation and motor function is preserved in the axillary, median, radial and ulnar nerve distributions. There is a 2+ radial pulse with brisk cap refill. Skin: Normal color. No rash. Warm and dry. Neuro: Oriented x3. Normal motor function. Normal sensory function. ED Course: 41 y/o female presents with self-inflicted superficial abrasions/lacerations to her left volar forearm. There are no suturable lacerations. Sensation and motor function intact. Plan to clean and dress the patient's arm under standard ED protocol and discharge her back to . MDM: This patient presents with essentially a large self-inflicted abrasion. There are a few scattered areas where skin has been fully penetrated, but these are non-linear and not amenable to suture repair. We have cleaned wound thoroughly and appropriately dressed it. She is safe for discharge back to unit. General Time Seen by Provider: 06/03/17 08:42 Initial Vital Signs: Initial Vital Signs Temperature (C) 36.7 C 06/03/17 08:45 Heart Rate 96 06/03/17 08:45 Respiratory Rate 18 06/03/17 08:45 Blood Pressure 132/85 H 06/03/17 08:45 O2 Sat (%) 98 06/03/17 08:45 O2 Delivery Mode Room Air Allergies/Adverse Reactions: No Known Allergies Allergy (Unverified 05/20/17 19:41) Home Medications: Medication Instructions Recorded LORazepam [Ativan (*)] 2 mg PO TIDMEAL tab 05/22/17 LORazepam [Ativan inj 2 mg/ml (*)] 2 mg IM TIDMEAL inj 05/22/17 Departure - Departure Disposition: [facility] Clinical Impression: Abrasion, Laceration Condition: Good Instructions: Laceration (ED) Additional Instructions: Return to the Emergency Department for fever, redness, discharge from wound, increasing pain or other worsening of condition. Referrals: NONE *PRIMARY CARE P,. [Primary Care Provider] - As per Instructions Report Scribed for: Sean Amaral Report Scribed by: Maryam Ly Date of Report: 06/03/17 Time of Report: 08:46 Physician Review and Approval Statement: Portions of this note were transcribed by an ED scribe. I personally performed the history, physical exam, and medical decision making; and confirm the accuracy of the information in the transcribed note.
[2017-06-03 10:08] VITALS: BP 110/75
== END 2017-06-03 10:05 | disposition home or self-care (01) ==
LOC: EDUNIT#
DX: S61.512A Laceration without foreign body of left wrist, initial encounter (principal); W26.8XXA Contact with other sharp object(s), not elsewhere classified, initial encounter; Y92.89 Other specified places as the place of occurrence of the external cause; Y99.8 Other external cause status; Y93.89 Activity, other specified

== ENCOUNTER 2017-06-16 08:39 | Inpatient (IN) | payer OTHER ==
[2017-06-16] MEDS ORDERED: LORazepam 0.5 MG TAB PO PRN (12:08)
[2017-06-16] MEDS ORDERED: MAGNESIUM HYDROXIDE 30 ML UDCUP PO PRN (12:08)
[2017-06-16] MEDS ORDERED: MAG HYDROX/AL HYDROX/SIMETH 30 ML UDCUP PO PRN (12:08)
[2017-06-16] MEDS ORDERED: ACETAMINOPHEN 325 MG TAB PO PRN (12:08)
[2017-06-16] MEDS ORDERED: LORazepam 2 MG/ML INJ IM PRN (12:14)
[2017-06-16] MEDS ORDERED: ZIPRASIDONE MESYLATE 20 MG VIAL IM PRN (12:19)
--- NOTE | 2017-06-16 13:41 | BAPA ---
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 She is from her . Her is caring for her 2 children. The patient was discharged from the inpatient behavioral health unit [facility] yesterday to [facility], which is a residential program operated by [facility]. CHIEF COMPLAINT: "This was part of my purification process." Patient transferred to the inpatient adult behavioral unit from the [facility] emergency department on an M-1 hold. HISTORY OF PRESENT ILLNESS: The patient is a poor historian. She reports that she asked her friend Mirna to destroy most of her things in her apartment that she had been renting. She reported this is "a sacrifice and purification." She reports that this is part of a sacrifice to God, but is unable to explain what this means. She denies command hallucinations to hurt herself or others. She does report hearing the voice of God telling her that she should destroy her things as a sacrifice from God. She denies plans to harm herself or others. She denies feeling anxious, depressed, or hopeless. The report from the emergency room was that the patient at [facility] was appearing anxious. She took down all the art work in her room. She then called her friend Mirna and told her friend Mirna to take her things from her apartment and destroy them, and if Mirna refused to do this that she would then cut her wrist. The patient denies the allegation that she threatened to cut her wrist, but does report that she did tell her friend to destroy all of her things. The patient reports that she will eat and drink and will ignore any hallucinations telling her to not eat or drink. She endorses, then denies feeling depressed and anxious. She denies racing thoughts. She denies any change in her physical health since she left the unit yesterday. She does report that she is receiving messages from God but won't explain the content of the messages. The [facility] ED report indicates the patient reported seeing and hearing demons and was responding to internal stimuli. PAST PSYCHIATRIC HISTORY: Please see the discharge summary from yesterday. The patient had her 1st psychiatric hospitalization starting May 21, 2017, here at [facility] after an ER visit for dehydration, following a reported 5-6 day episode of severe insomnia, not eating, acting bizarre, missing work, and not caring for her children. The patient then had a [address] [facility] ICU for IV fluids and IV lorazepam for catatonia after starting olanzapine 2.5 mg on May 21. The patient was in the [facility] ICU May 22 through for catatonia and dehydration. The patient had improved symptoms of catatonia with lorazepam 4 mg a day in the ICU and later 6mg a day on the inpatient psychiatric unit. Prior to that hospitalization, the patient was having mixed manic and psychotic symptoms. On the unit during the hospitalization that lasted from May 24 to June 15, the patient reported side effects from lithium and refused to take lithium after 3 doses. She did not have any clear benefit from Abilify and had an episode of not eating for 48 hours that caused hypoglycemia. Later she was eating and drinking consistently. She eventually was started on Seroquel, a low dose at bedtime for bipolar depression and psychosis. The patient tolerated this medication and was on lorazepam 1 mg t.i.d. when she was discharged yesterday to [facility]. The patient had an episode of self-injurious behavior May 23 at [facility] where she superficially cut her left wrist multiple times with a butter knife, and then, she self-harmed her left wrist again on the inpatient unit here at [address] [place] [address] on June 03 with a broken CD. The patient has no history of violence or arrests. No history of substance abuse treatment. She had no prior history of psychiatric medication trials prior to May 21, 2017. The patient apparently had some symptoms of depression , anxiety, and sleep disturbance in her 20s, as well as , but did not take any psychiatric medications or receive outpatient mental health treatment. MEDICAL HISTORY: The patient has multiple self-inflicted superficial lacerations on her left wrist. This has been covered with a dry dressing. The patient has anemia. Also, she has a low weight. She has a history of surgery on her right knee. She denies any traumatic brain injury, seizures, or any chronic medical problems. ALLERGIES: No known drug allergies. MEDICATIONS: She was discharged yesterday on Ativan 1 mg by mouth 3 times a day , Seroquel 37.5 mg by mouth at bedtime, ferrous sulfate 325 mg daily, folic acid 1 mg daily. FAMILY HISTORY: Her mother and sister have a history of bipolar disorder. Her sister has taken lithium in the past. Her parents are otherwise healthy. She denies a family history of suicide or substance abuse. SOCIAL HISTORY: Her mother and sister live in [place]. Her brother Naveen lives in [place]. She also has a friend named, Mirna Perez that she works with who is a support. The patient from her in December of 2016. concurrent with what appears to be mixed manic and psychotic symptoms. He is caring for other 2 children, ages 4 and 6, 1 boy and 1 girl. The patient has a PhD in chemical engineering and has lived in the [facility] about 5 years. The patient denies history of childhood abuse or neglect or any history of trauma. LABORATORY DATA: In the [facility] Emergency Department, the patient had a sodium 141, potassium 3.6, creatinine 0.69, glucose 89. Liver function tests were normal. TSH 3.0. White blood cell count 6.1, hemoglobin 12, platelet 197. U-tox negative. Serum beta HCG was negative. VITAL SIGNS: In the [facility] Department, she had a heart rate 96, respiratory rate 16, blood pressure 104/64, pulse ox 96% on room air. MENTAL STATUS EXAM: She is alert, thin, white female in no acute distress. She has good eye contact. She has an odd affect, at times appears anxious, other times appears sad. She does report she is on a mission from God to purify herself and that was why she asked her friend Mirna to destroy her things as "sacrifice." She denies specific plans to hurt herself or others. She currently denies auditory hallucinations, but does report she is getting messages from God. She has fair memory. Poor insight and impaired judgment. She describes her mood as "very well." Her affect is odd, anxious at times, sad at times. ASSESSMENT: Schizoaffective disorder, bipolar type; History of catatonia; Anemia; Self-inflicted lacerations to left wrist; History of dehydration, Low weight; Rule Out Bipolar Disorder, Mixed episode with psychotic and catatonic features. Possible suicidal ideation The overall assessment is the patient was discharged yesterday from the inpatient unit to [facility]. There she apparently had a psychotic decompensation where she removed art work from her singer, called her friend and reported that she was on a mission from God to have her friend destroy her things as a sacrifice to God. During the episode she talked about cutting her wrist. In the emergency room at [facility], the manager utilization review felt that the patient was responding to internal stimuli and reporting that she was hearing or seeing a demon. The patient currently denies violent or suicidal thoughts. She appears illogical and delusional regarding her recent behavior. PLAN: 1. The patient is on a short-term certification with court-ordered medications from her recent hospitalization. The short-term certification expires August 22, 2017. The court order, includes Risperdal Invega, Zyprexa, Geodon, Abilify, Cogentin, Benadryl, lorazepam, and clonazepam only. 2. The patient will be on [id number] precautions as the patient reportedly made a statement about wanting to cut her wrist if her friend did not destroy her things. Because the patient has a psychotic symptoms with a history of self -harm, she is at high risk for further self-harm. The patient will be on line- of-sight precautions. 3. The patient will be on intake and output monitoring as the patient has in the past had psychotic symptoms telling her to not eat or drink. Will monitor for dehydration or poor p.o. intake. Daily weights and BID vital signs. 4. Will continue ferrous sulfate and folic acid for anemia. 5. We will continue lorazepam 1 mg by mouth 3 times a day for a history of catatonia. We will use liquid lorazepam to monitor compliance. This is a court -ordered medication. If refused, we will give lorazepam 1 mg IM. 6. We will change the patient's antipsychotic to risperidone M tab 2 mg at bedtime. If refused IM Geodon 10 mg IM. Will work toward getting patient a long-acting injectable antipsychotic. 7. We will monitor the patient's mood stability and psychotic symptoms. 8. Discussed with the patient, the risks versus the benefits of doing electroconvulsive therapy as this is the most effective treatment for bipolar disorder and catatonia and mood disorders with psychotic features. The patient is not willing to start electroconvulsive therapy at this time. Discussed the case with Dr. Fortune. Will request that Dr. Fortune start emergency ECT if the patient is refusing to eat or drink or having any recurrence of self- harming behaviors or severe catatonic symptoms. 9. The patient's estranged was notified of the patient's admission. The patient is unsure if she is willing to allow us to coordinate care with him further at this point in time. /[id number]/MODL MTDD
[2017-06-16] MEDS: LORazepam 1 MG/0.5 ML UDSYR PO SCH ×2 (17:50→21:15)
[2017-06-16] MEDS ORDERED: ZIPRASIDONE MESYLATE 20 MG VIAL IM SCH (21:00)
[2017-06-16] MEDS: RISPERIDONE 2 MG ODT TAB SL SCH (21:15)
--- NOTE | 2017-06-17 08:11 | SOAPPROG ---
SOAP Progress Note Assessment/Plan: Assessment: Schizoaffective Disorder - bipolar type History of catatonia Low weight, anemia (on iron, folic acid), history of dehydration Self-inflicted lacerations to left wrist 05/23/17 and 06/03/17 Patient tolerated Risperdal Mtab 2mg last night and has very mild increased tone. Patient denies SI or HI or command AH today but is illogical and delusional when discussing events at [facility] that led to re-admission. Plan: Short Term Certification expires August 22 2017 Revised letter sent to court regarding court ordered medications, to include Clozapine, Depakote Court Ordered Medication: Ativan 1mg liquid PO TID, if refused 1mg IM Risperdal Mtab 2mg SL QHS (started 06/16/17), if refused Geodon 10mg IM Monitor for EPS or catatonia Monitor PO fluid intake, % meals taken Line of sight precautions to reduce risk of self-harm Dry dressing to left wrist Discussed benefits of ECT, patient not consenting at this time 06/17/17 08:17 Subjective: CC: "Doing well" Patient reports it is 'a mistake that I am here.' Reports she is unwilling to try ECT at this time, says 'I have been reading about it' regarding handout. Reports sleeping well and plans to eat today. Denies command AH to either fast or harm self. Reports 'it is my right' to have all of her possessions destroyed 'so I can start a new life.' Unable to explain how she would start a new life with no possessions. Reports her statements at [facility] regarding cutting her wrist were related to past events, but reports "I can purify myself however I want, that is my right.' Denies stiffness, tremors, or excessive sedation. Objective: Vital Signs Temp Pulse Resp BP Pulse Ox 36.4 C 91 14 107/58 L 97 06/17/17 06:00 06/17/17 06:00 06/17/17 06:00 06/17/17 06:00 06/17/17 06:00 06/16/17 06/17/17 06/18/17 05:59 05:59 05:59 Intake Total 1240 Balance 1240 Staff report patient quiet, isolative, ate 100% of dinner yesterday, not attending groups. Alert thin WF. Mild increased tone but no tremors. Speech RRR. Mood 'doing well.' Affect odd, restricted, brief smiling. Thoughts illogical with delusions. Denies command AH. Denies SI or HI. Poor insight. - Time Spent With Patient Time Spent With Patient: 20 minutes - Pending Discharge Pending Discharge Within 24 Hours: No Pending Discharge Within 48 Hours: No ICD10 Worksheet Patient Problems: Problems Problem Status Onset Schizoaffective disorder, bipolar type Acute Anemia Acute Catatonia Acute Eating disorder Acute
[2017-06-17] MEDS: FERROUS SULFATE 325 MG TAB PO SCH (08:31)
[2017-06-17] MEDS: FOLIC ACID 1 MG TAB PO SCH (08:31)
[2017-06-17] MEDS: LORazepam 1 MG/0.5 ML UDSYR PO SCH ×3 (08:31→20:54)
[2017-06-17] MEDS: RISPERIDONE 2 MG ODT TAB SL SCH (20:54)
[2017-06-18] MEDS: FERROUS SULFATE 325 MG TAB PO SCH (08:28)
[2017-06-18] MEDS: LORazepam 1 MG/0.5 ML UDSYR PO SCH ×3 (08:28→20:45)
[2017-06-18] MEDS: FOLIC ACID 1 MG TAB PO SCH (08:28)
--- NOTE | 2017-06-18 10:17 | SOAPPROG ---
SOAP Progress Note Assessment/Plan: Assessment: Schizoaffective Disorder - bipolar type History of catatonia Low weight, anemia (on iron, folic acid), history of dehydration Self-inflicted lacerations to left wrist 05/23/17 and 06/03/17 Patient having orthostatic hypotension this AM, possibly from Risperdal. Patient appears somewhat improved and is more talkative and appears less anxious than previous. Patient denies SI or HI or command AH today but appears illogical and delusional at times. Plan: Short Term Certification expires August [address] Ordered Medication: Ativan 1mg liquid PO TID, if refused 1mg IM Risperdal Mtab 2mg SL QHS (started 06/16/17), if refused Geodon 10mg IM Monitor for EPS or catatonia; monitor hypotension Check AM CK, BMP, CBC, Mag/Phos If blood pressure and CK level WNL tomorrow AM, will increase Risperdal dose Monitor PO fluid intake, % meals taken Discussed benefits of ECT, patient not consenting at this time Discussed Depakote, patient not willing to try at this time 06/18/17 10:22 Subjective: CC "Very Well" Patient denies mood swings or anxiety this AM. Reports not wanting to meet with or children or her friend Mirna. Reports 'they made untruthful statements about me.' Denies command AH to fast or harm self. Denies any AH but continues to believe that she needs to meditate to 'purify myself' and that some of her old possessions need to be destroyed 'so I can start a new life.' Reports feeling lightheaded and dizzy this AM and feels tired from Risperdal. Patient reports she is unwilling to try ECT or Depakote at this time. Objective: Vital Signs Temp Pulse Resp BP Pulse Ox 36.6 C 82 14 78/48 L 96 06/18/17 06:00 06/18/17 06:00 06/18/17 06:00 06/18/17 06:00 06/18/17 06:00 06/17/17 06/18/17 06/19/17 05:59 05:59 05:59 Intake Total 1240 1400 Balance 1240 1400 alert WF. Odd smiling. Appears less anxious and is more talkative today. Mood 'very well.' Thoughts mostly organized but illogical when discussing recent symptoms and conflict with and friend. Delusional that she needs to 'purify' herself. Denies command AH. Denies thoughts of not eating or fasting or harming self. Denies violent thoughts. Possible paranoia regarding and friend. Poor insight. Staff report patient slept 8 hours. Had hypotension early this AM but recheck later in AM was 110/70 but HR 120. Staff report patient isolative and not attending groups. - Time Spent With Patient Time Spent With Patient: 20 minutes - Pending Discharge Pending Discharge Within 24 Hours: No Pending Discharge Within 48 Hours: No ICD10 Worksheet Patient Problems: Problems Problem Status Onset Schizoaffective disorder, bipolar type Acute Anemia Acute Catatonia Acute Eating disorder Acute
[2017-06-18] MEDS: RISPERIDONE 2 MG ODT TAB SL SCH (20:45)
[2017-06-19 08:21] LABS: PLATELET COUNT 135 10^3/uL (150-400)
[2017-06-19] MEDS: FOLIC ACID 1 MG TAB PO SCH (08:46)
[2017-06-19] MEDS: FERROUS SULFATE 325 MG TAB PO SCH ×3 (08:47→20:45)
[2017-06-19] MEDS: LORazepam 1 MG/0.5 ML UDSYR PO SCH ×2 (08:47→20:42)
[2017-06-19] MEDS ORDERED: LORazepam 2 MG/ML INJ IM PRN (09:03)
--- NOTE | 2017-06-19 09:08 | SOAPPROG ---
SOAP Progress Note Assessment/Plan: Assessment: Schizoaffective Disorder - bipolar type History of catatonia Low weight, anemia (on iron, folic acid), history of dehydration Self-inflicted lacerations to left wrist 05/23/17 and 06/03/17 Patient denies SI or HI or command AH today but appears illogical and delusional at times. Patient isolative and not attending groups, but reports she is willing to talk to on phone and has slightly improved insight. Patient appears tired and reports excessive sedation from medication. Plan: Short Term Certification expires August [address] Ordered Medication: Reduce Ativan 1mg liquid PO BID, if refused 1mg IM Increase Risperdal Mtab 3mg SL QHS (started 06/16/17), if refused Geodon 10mg IM Monitor for EPS or catatonia; monitor borderline hypotension Increase iron BID for anemia AM CK, BMP, Mag/Phos levels pending Monitor PO fluid intake, % meals taken, daily weights Discussed benefits of ECT, patient not consenting at this time 06/19/17 09:11 Subjective: CC: "OK, tired" Patient reports feeling tired and oversedated by medications and napping yesterday. Reports she spoke to Hitesh on the phone regarding children but does not want to meet with him today. Reports she does think she had mental illness symptoms 'in the past but not now.' Agrees to take medication and transition to [facility] but unsure if she really needs halfway treatment. Reports she did not threaten to cut herself or hurt herself prior to admission. Reports she did ask friend to destroy all of her possessions ' except my computer.' Reports wanting to 'purify my life and start a new.' Reports she only wants her computer and wants to obtain new clothes after discharge and start a new life separate from her . Denies AH and denies command AH to purify herself, fast, or harm herself. Denies feeling anxious and having mood swings or feeling irritable. Objective: Vital Signs Temp Pulse Resp BP Pulse Ox 36.9 C 81 14 93/54 L 97 06/19/17 06:37 06/19/17 06:37 06/19/17 06:37 06/19/17 06:37 06/19/17 06:37 Laboratory Results 06/19/17 06:10 06/18/17 06/19/17 06/20/17 05:59 05:59 05:59 Intake Total 1400 2100 Balance 1400 2100 Alert WF, thin, ambulatory without tremors. Appears tired. Speech RRR. Mood ' OK, tired.' Affect odd smiling. Thoughts briefly organized but some illogical/ delusional content about purification and needing possessions destroyed. Denies command AH. Denies thoughts to harm self or others. Limited/poor insight. Judgment poor. Staff report patient 100% of meals yesterday but isolative and not attending groups and having some internal preoccupation. WBC 5.1, Hgb 11.7, Plt 135 - Time Spent With Patient Time Spent With Patient: 20 minutes - Pending Discharge Pending Discharge Within 24 Hours: No Pending Discharge Within 48 Hours: No ICD10 Worksheet Patient Problems: Problems Problem Status Onset Schizoaffective disorder, bipolar type Acute Anemia Acute Catatonia Acute Eating disorder Acute
[2017-06-19 09:28] LABS: CREATINE KINASE 25 IU/L (0-156)
[2017-06-19] MEDS: RISPERIDONE 2 MG ODT TAB SL SCH (20:42)
[2017-06-20] MEDS: FOLIC ACID 1 MG TAB PO SCH (08:39)
[2017-06-20] MEDS: FERROUS SULFATE 325 MG TAB PO SCH ×2 (08:39→20:52)
[2017-06-20] MEDS: LORazepam 1 MG/0.5 ML UDSYR PO SCH ×2 (08:39→20:53)
--- NOTE | 2017-06-20 13:23 | SOAPPROG ---
SOAP Progress Note Assessment/Plan: Assessment: Assessment/Plan: Assessment: Schizoaffective Disorder - bipolar type History of catatonia Low weight, anemia (on iron, folic acid), history of dehydration Self-inflicted lacerations to left wrist 05/23/17 and 06/03/17 Patient denies SI or HI or command AH today but appears illogical and delusional at times. Patient isolative and not attending groups, but reports she is willing to talk to on phone and has slightly improved insight. Patient appears tired and reports excessive sedation from medication. Plan: Short Term Certification expires August [address] Ordered Medication: Reduce Ativan 1mg liquid PO BID, if refused 1mg IM Increase Risperdal Mtab 3mg SL QHS (started 06/16/17), if refused Geodon 10mg IM Monitor for EPS or catatonia; monitor borderline hypotension Increase iron BID for anemia AM CK, BMP, Mag/Phos levels pending Monitor PO fluid intake, % meals taken, daily weights Discussed benefits of ECT, patient not consenting at this time Plan: 06/20/17 13:[address] Patient on [address] ordered medications. 2. Patient has low RBC's, Hgb and Hct on iron supplements for anemia. 3. Patient c/o lightheadedness likely d/t low BP. Patient has been drinking sufficient fluids and has adequate PO intake. Continue to encourage fluids. Subjective: Met with patient, reviewed chart and d/w staff. Patient is sitting on couch wrapped in blanket reading a book. She is pleasant and cooperative. She says "I' m here by mistake." She claims there was nothing unusual in her request for friend to put all her belongings in the trash or burn them. Patient denies any command auditory hallucinations and says "I stopped listening to the negative voices." Patient doesn't give clear answer whether she still has AH and just isn 't paying attention to them or is not having hallucinations at all. Patient wants to be on 2mg of Risperdal b/c she doesn't like the way the 3mg dose makes her feel, but can't provide any specific SE's other than lightheadedness, which she has had during both admissions when she was on other meds entirely. explains that lightheadedness is most likely d/t poor PO intake and anemia. Patient denies any SI/HI, and is able to contract for safety. Objective: Vital Signs Temp Pulse Resp BP Pulse Ox 36.9 C 76 14 89/50 L 96 06/20/17 06:55 06/20/17 06:55 06/20/17 06:55 06/20/17 06:55 06/20/17 06:55 Laboratory Results 06/19/17 06:10 06/19/17 06:10 06/19/17 06/20/17 06/21/17 05:59 05:59 05:59 Intake Total 2100 1500 Balance 2100 1500 MSE: Affect: Euthymic Mood: "Excellent" TP: Linear TC: Denies any SI/HI, denies hallucinations Insight/Judgment: Poor - Time Spent With Patient Time Spent With Patient: 25" - Pending Discharge Pending Discharge Within 24 Hours: No Pending Discharge Within 48 Hours: No ICD10 Worksheet Patient Problems: Problems Problem Status Onset Schizoaffective disorder, bipolar type Acute Anemia Acute Catatonia Acute Eating disorder Acute
[2017-06-20] MEDS: RISPERIDONE 2 MG ODT TAB SL SCH (20:52)
[2017-06-21] MEDS: FERROUS SULFATE 325 MG TAB PO SCH ×2 (08:35→20:41)
[2017-06-21] MEDS: FOLIC ACID 1 MG TAB PO SCH (08:35)
[2017-06-21] MEDS: LORazepam 1 MG/0.5 ML UDSYR PO SCH ×2 (08:35→20:42)
--- NOTE | 2017-06-21 13:55 | SOAPPROG ---
SOAP Progress Note Assessment/Plan: Assessment: Assessment/Plan: Assessment: Schizoaffective Disorder - bipolar type History of catatonia Low weight, anemia (on iron, folic acid), history of dehydration Self-inflicted lacerations to left wrist 05/23/17 and 06/03/17 Patient denies SI or HI or command AH today but appears illogical and delusional at times. Patient isolative and not attending groups, but reports she is willing to talk to on phone and has slightly improved insight. Patient appears tired and reports excessive sedation from medication. Plan: Short Term Certification expires August [address] Ordered Medication: Reduce Ativan 1mg liquid PO BID, if refused 1mg IM Increase Risperdal Mtab 3mg SL QHS (started 06/16/17), if refused Geodon 10mg IM Monitor for EPS or catatonia; monitor borderline hypotension Increase iron BID for anemia AM CK, BMP, Mag/Phos levels pending Monitor PO fluid intake, % meals taken, daily weights Discussed benefits of ECT, patient not consenting at this time Plan: 06/20/17 13:[address] Patient on [address] ordered medications. 2. Patient has low RBC's, Hgb and Hct on iron supplements for anemia. 3. Patient c/o lightheadedness likely d/t low BP. Patient has been drinking sufficient fluids and has adequate PO intake. Continue to encourage fluids. 06/21/17 13:43 1. Continues to state there is "no reason" for her to be in hospital. Denies she is manic or psychotic. 2. BP was 97/54 and HR was 78 this AM. Her BP has consistently been low during past 2 admissions. 3. Patient ate 100% of breakfast and drank 500cc's of fluids. 4. Patient continues to refuse to attend groups b/c she is "protesting" being in hospital. Subjective: Met with patient, reviewed chart and d/w staff. Patient insists she is still on "purification" ritual through meditation. She denies any CAH, denies feeling paranoid or having any bizarre thoughts despite describing need to "purify" herself. She denies any thoughts, plan or intent to hurt herself or anyone else. She still reports she doesn't like the 3mg dose of Risperdal. However, explained her BP has not deviated significantly from prior BP reading while she' s been in hospital. If anything, her BP was slightly elevated (108/87) yesterday , despite patient claiming she felt hypotensive (lightheaded, dizzy). Objective: Vital Signs Temp Pulse Resp BP Pulse Ox 36.6 C 78 14 97/54 L 95 06/21/17 06:51 06/21/17 06:51 06/21/17 06:51 06/21/17 06:51 06/21/17 06:51 Laboratory Results 06/19/17 06:10 06/19/17 06:10 06/20/17 06/21/17 06/22/17 05:59 05:59 05:59 Intake Total 1500 1560 Balance 1500 1560 MSE: Affect: Euthymic Mood: "OK" TP: Tangential, perseverative about BP and meds TC: Denies SI/HI, continues to have bizarre thoughts about purification and meditation Insight/Judgment: Poor - Time Spent With Patient Time Spent With Patient: 15" - Pending Discharge Pending Discharge Within 24 Hours: No Pending Discharge Within 48 Hours: No ICD10 Worksheet Patient Problems: Problems Problem Status Onset Schizoaffective disorder, bipolar type Acute Anemia Acute Catatonia Acute Eating disorder Acute
[2017-06-21] MEDS: RISPERIDONE 2 MG ODT TAB SL SCH (20:41)
[2017-06-22] MEDS ORDERED: LORazepam 2 MG/ML INJ IM PRN (07:14)
[2017-06-22] MEDS ORDERED: RISPERIDONE 2 MG ODT TAB SL SCH (07:56)
--- NOTE | 2017-06-22 08:00 | SOAPPROG ---
SOAP Progress Note Assessment/Plan: Assessment: Schizoaffective Disorder - bipolar type History of catatonia Low weight, anemia (on iron, folic acid), history of dehydration Self-inflicted lacerations to left wrist 05/23/17 and 06/03/17 Patient denies SI or HI or command hallucinations but is illogical/paranoid regarding and brother. Patient eating and drinking well with improved BMI = 17.9; but not attending groups, isolative on unit, poor insight, poor ADLs. Plan: Short Term Certification expires August 22 2017 Patient [address] for revised court ordered medication list Court Ordered Medication: Reduce Ativan 1mg liquid PO QHS (if refused 1mg IM), due to daytime sedation Increase Risperdal Mtab 4mg SL QHS (started 06/16/17), if refused Geodon 10mg IM Monitor for EPS or catatonia; monitor borderline hypotension Monitor PO fluid intake, % meals taken, daily weights; monitor ADLs 06/22/17 08:02 Subjective: CC: "I'm OK, I don't want to be here." Patient reports over weekend feeling excessively tired throughout the day but sleeping well at night. Reports not meeting with brother or over weekend 'I know what there were saying about me and I don't approve, I don't agree with what they say about me.' Denies command AH to fast or harm self over weekend. Denies mood swings or agitation. Reports willingness to go into residential care after discharge, then 'maybe I will stay with Hitesh () for a week or two to spend time with my children.' Reports goal is to return to work and spend time with children. Denies stiffness or tremors. Unable to explain past symptoms. Objective: Vital Signs Temp Pulse Resp BP Pulse Ox 36.6 C 91 14 100/56 L 96 06/22/17 06:53 06/22/17 06:53 06/22/17 06:53 06/22/17 06:53 06/22/17 06:53 Laboratory Results 06/19/17 06:10 06/19/17 06:10 06/21/17 06/22/17 06/23/17 05:59 05:59 05:59 Intake Total 1560 1720 Balance 1560 1720 Staff report patient over weekend ate 75-100% meals, isolative to room, refused to meet with brother/, not attending groups, not showering. This AM patient showered, drank 1720cc over past 24hours. Nurse performed full body exam, no evidence of recent self-harm, healing wound on left wrist. Patient slept 8 hours overnight. Alert thin WF. No cogwheeling or tremor, mildly slowed ambulation. Speech soft , few words. Mood "OK, but I don't want to be here." Good eye contact. Affect anxious at times. Thoughts briefly organized but illogical/paranoid statements about and brother. Denies AH or SI or violent thoughts. Poor insight. - Time Spent With Patient Time Spent With Patient: 20 minutes - Pending Discharge Pending Discharge Within 24 Hours: No Pending Discharge Within 48 Hours: No ICD10 Worksheet Patient Problems: Problems Problem Status Onset Schizoaffective disorder, bipolar type Acute Anemia Acute Catatonia Acute Eating disorder Acute
[2017-06-22] MEDS: FERROUS SULFATE 325 MG TAB PO SCH ×2 (08:32→19:08)
[2017-06-22] MEDS: FOLIC ACID 1 MG TAB PO SCH (08:32)
[2017-06-22] MEDS ORDERED: LORazepam 1 MG/0.5 ML UDSYR PO SCH (21:00)
[2017-06-23] MEDS ORDERED: ZIPRASIDONE MESYLATE 20 MG VIAL IM PRN (08:09)
[2017-06-23] MEDS ORDERED: LORazepam 2 MG/ML INJ IM PRN ×2 (08:10→10:19)
--- NOTE | 2017-06-23 08:15 | SOAPPROG ---
SOAP Progress Note Assessment/Plan: Assessment: Schizoaffective Disorder - bipolar type History of catatonia Low weight, anemia (on iron, folic acid), history of dehydration Self-inflicted lacerations to left wrist 05/23/17 and 06/03/17 Patient denies SI or HI or command hallucinations but is illogical/paranoid when discussing recent symptoms. Patient having overnight and AM dizziness and hypotension, likely related to combination of increased Risperdal and Ativan. Patient eating and drinking well with improved BMI = 18; but not attending groups, isolative on unit, not meeting with family/friends. Plan: Short Term Certification expires August 22 [address] Patient [address] for revised court ordered medication list Court Ordered Medication: Continue Ativan 1mg PO QHS (if refused 1mg IM) Discontinue Risperdal Start Invega 3mg QAM today, then 6mg QAM tomorrow; if refused Geodon 10mg IM Monitor for EPS or catatonia; monitor borderline hypotension Monitor paranoia and willingness to meet with family and attend groups. Monitor PO fluid intake, % meals taken, daily weights; monitor ADLs Check AM CBC, CK, BMP 06/23/17 08:18 Subjective: CC: "Very well, tired" Patient reports at night and AM feeling dizzy when standing. Reports feeling tired during the day. Reports she was unwilling to meet with friend Mirna last night 'I don't like what she said about me.' Continues to believe that her possessions need to be 'thrown away' in order to 'purify myself and start a new life.' Denies command AH to fast or harm self. Denies feeling hopeless or depressed or suicidal. Denies any plans to harm anyone or destroy anything if discharged to residential care. Reports she is possibly willing to meet with on unit to talk about her children. Reports concern that 'a lot of things were said that were untrue' regarding her hospitalization and re- admission from [facility]. Objective: Vital Signs Temp Pulse Resp BP Pulse Ox 36.5 C 86 12 98/60 L 96 06/23/17 06:39 06/23/17 08:08 06/23/17 08:08 06/23/17 08:08 06/23/17 06:39 Laboratory Results 06/19/17 06:10 06/19/17 06:10 06/22/17 06/23/17 06/24/17 05:59 05:59 05:59 Intake Total 1720 1300 Balance 1720 1300 Staff report patient eating 75-100% of meals, isolative, only attended one group , refused to meet with friend on unit. Alert thin WF ambulatory without tremors. Trace increased tone. Speech RRR. Affect restricted, odd. Mood 'tired but OK.' Thoughts briefly organized with a poverty of detail/content. Illogical/paranoid when talking about friends/ family. Denies AH or command AH to fast or harm self. LUE wrist healing. Denies SI or HI. Insight poor. - Time Spent With Patient Time Spent With Patient: 15 minutes - Pending Discharge Pending Discharge Within 24 Hours: No Pending Discharge Within 48 Hours: No ICD10 Worksheet Patient Problems: Problems Problem Status Onset Schizoaffective disorder, bipolar type Acute Anemia Acute Catatonia Acute Eating disorder Acute
[2017-06-23] MEDS: FERROUS SULFATE 325 MG TAB PO SCH ×2 (08:39→21:06)
[2017-06-23] MEDS: FOLIC ACID 1 MG TAB PO SCH (08:39)
[2017-06-23] MEDS ORDERED: PALIPERIDONE 3 MG TAB.ER PO SCH (09:00)
[2017-06-23] MEDS ORDERED: PALIPERIDONE 3 MG TAB.ER PO ONE (09:00)
[2017-06-23] MEDS ORDERED: LORazepam 1 MG TAB PO PRN (10:18)
[2017-06-23] MEDS ORDERED: DIVALPROEX NA 500 MG TAB PO SCH (21:00)
[2017-06-23] MEDS ORDERED: LORazepam 1 MG TAB PO SCH (21:00)
[2017-06-24 08:47] LABS: CREATINE KINASE 27 IU/L (0-156)
[2017-06-24] MEDS: PALIPERIDONE 3 MG TAB.ER PO SCH (08:48)
[2017-06-24] MEDS: FERROUS SULFATE 325 MG TAB PO SCH ×2 (08:49→20:36)
--- NOTE | 2017-06-24 13:23 | SOAPPROG ---
SOAP Progress Note Assessment/Plan: Assessment: Schizoaffective Disorder - bipolar type History of catatonia Low weight, anemia (on iron, folic acid), history of dehydration Self-inflicted lacerations to left wrist 05/23/17 and 06/03/17 Patient denies SI or HI or command hallucinations. Patient has continued grandiose ideas and is paranoid about her family with guarded attitude. Staff report yesterday patient was responding to internal stimuli and very isolative and refusing to talk to or meet with family, but today this AM was more appropriate on unit, attended some groups, appearing less preoccupied. Tolerated PM Depakote. Patient still needs prompts for meals and hygiene. Plan: Short Term Certification expires August 22 2017 Patient stipulated for revised court ordered medication list Court Ordered Medication: Increase Depakote 1000mg QHS Continue Invega 3mg QAM PRN Ativan PO/IM 1mg if having recurrence of catatonia Check Depakote level, LFTs, CBC on Thursday06/26/17 Monitor for EPS or catatonia; monitor borderline hypotension Monitor paranoia and willingness to meet with family and attend groups; monitor grandiosity. Monitor PO fluid intake, % meals taken, daily weights; monitor ADLs 06/24/17 13:24 Subjective: CC: "OK" Patient reports feeling improved today. Reports feeling less sedated and tired since Ativan discontinued. Reports sleeping well. Denies side effects from Depakote. Reports she is on a mission to meditate, pray and purify herself as a way to be close to God. Denies command AH to fast again or harm self. Reports wanting to live for herself and her children. Refuses to talk to family /friends but will not explain why. Objective: Vital Signs Temp Pulse Resp BP Pulse Ox 36.5 C 78 16 101/56 L 95 06/24/17 06:15 06/24/17 06:15 06/24/17 06:15 06/24/17 06:15 06/24/17 06:15 Laboratory Results 06/24/17 06:10 06/24/17 06:10 06/23/17 06/24/17 06/25/17 05:59 05:59 05:59 Intake Total 1300 1500 Balance 1300 1500 BMP, CK WNL. CBC hemolyzed. Staff report patient yesterday was eating meals but isolative, not speaking much , minimal interaction with staff/patients, appearing preoccupied. This AM staff report patient ate breakfast and attended 2 groups and was more talkative. Thin WF. Ambulatory without tremors or weakness or cogwheeling. Fair eye contact. Mood 'OK.' Affect odd smiling. Thoughts briefly organized with limited detail. Reports grandiose idea that she is purifying herself to be close to God but denies plan to fast or harm self. Denies command AH or SI or thoughts of self harm. Guarded attitude, refusing to discuss reasons for refusing to talk to family on phone. Insight poor but agreeing to continue to take medication and transition to [facility] if stable. Patient slept 7 hours overnight. Refused phone calls and visits from family yesterday. - Time Spent With Patient Time Spent With Patient: 20 minutes - Pending Discharge Pending Discharge Within 24 Hours: No Pending Discharge Within 48 Hours: No ICD10 Worksheet Patient Problems: Problems Problem Status Onset Schizoaffective disorder, bipolar type Acute Anemia Acute Catatonia Acute Eating disorder Acute
[2017-06-24] MEDS: FOLIC ACID 1 MG TAB PO SCH (14:51)
[2017-06-24] MEDS: DIVALPROEX NA 500 MG TAB PO SCH (20:35)
[2017-06-25] MEDS: PALIPERIDONE 3 MG TAB.ER PO SCH (08:33)
[2017-06-25] MEDS: FERROUS SULFATE 325 MG TAB PO SCH ×2 (08:33→17:31)
[2017-06-25] MEDS: FOLIC ACID 1 MG TAB PO SCH (08:33)
--- NOTE | 2017-06-25 10:38 | SOAPPROG ---
SOAP Progress Note Assessment/Plan: Assessment: Schizoaffective Disorder - bipolar type History of catatonia Low weight, anemia (on iron, folic acid), history of dehydration Self-inflicted lacerations to left wrist 05/23/17 and 06/03/17 Patient denies SI or HI or command hallucinations. Patient has continued grandiose belief that she needs to 'purify' her life by having her things destroyed and starting a new life without talking to friends or family. Patient having mood instability - yesterday AM was more in milieu, appearing euthymic and very talkative, and participating in groups, then in afternoon was isolating, dysphoric/sad, minimal/no speech, needed multiple prompts for dinner. Patient has increased tone but no tremors or excessive sedation. Plan: Short Term Certification expires August 22 2017 Patient stipulated for revised court ordered medication list Court Ordered Medication: Continue Depakote 1000mg QHS, started 06/23 Continue Invega 3mg QAM - monitor mild EPS/slowing PRN Ativan PO/IM 1mg if having recurrence of catatonia or severe anxiety Check Depakote level, CMP/LFTs, CBC, CK on Thursday06/26/17 Monitor mood stability and grandiosity Monitor PO fluid intake, % meals taken, daily weights; monitor ADLs 06/25/17 10:43 Subjective: CC: "I"m OK" Patient reports tolerating medications without excessive sedation or slowing or tremors. Reports yesterday wanting to participate in groups and wanting to discharge, then reports not wanting treatment, not wanting to talk to staff or family or friends. Reports she continues to believe she is on a mission to purify her life and wants her possessions outside of the hospital 'destroyed so I can start a new life.' Reports she is unwilling to talk to family or friends , reporting 'I don't need to, I don't need them.' Denies command AH or any thoughts to hurt self or others. Objective: Vital Signs Temp Pulse Resp BP Pulse Ox 36.9 C 88 14 100/62 96 06/25/17 06:43 06/25/17 06:43 06/25/17 06:43 06/25/17 06:43 06/25/17 06:43 Laboratory Results 06/24/17 06:10 06/24/17 06:10 06/24/17 06/25/17 06/26/17 05:59 05:59 05:59 Intake Total 1500 750 Balance 1500 750 Staff report patient slept 8 hours. Yesterday AM was in milieu talking in groups and with staff appearing euthymic and smiling, then in afternoon isolating to room, barely speaking, appearing dysphoric, needed multiple prompts to attend meals, refused afternoon/evening groups. Alert WF thin, healing wounds LUE. Appears mildly slowed. Mild increased tone but no tremors. Speech soft RRR. Mood 'OK.' Affect changing - brief smiling, then appearing sad. Denies command AH. Denies SI or HI or any type of violent thoughts. Grandiose idea that she needs to destroy her possessions to start a new life without any contact with friends/family. Insight poor/impaired. - Time Spent With Patient Time Spent With Patient: 20 minutes - Pending Discharge Pending Discharge Within 24 Hours: No Pending Discharge Within 48 Hours: No ICD10 Worksheet Patient Problems: Problems Problem Status Onset Schizoaffective disorder, bipolar type Acute Anemia Acute Catatonia Acute Eating disorder Acute
[2017-06-25] MEDS: DIVALPROEX NA 500 MG TAB PO SCH (17:30)
[2017-06-26 08:06] LABS: PLATELET COUNT 187 10^3/uL (150-400)
[2017-06-26 08:19] LABS: CREATINE KINASE 32 IU/L (0-156)
[2017-06-26] MEDS: FERROUS SULFATE 325 MG TAB PO SCH ×2 (08:22→17:17)
[2017-06-26] MEDS: FOLIC ACID 1 MG TAB PO SCH (08:22)
[2017-06-26] MEDS ORDERED: DIVALPROEX NA 500 MG TAB PO SCH (08:42)
--- NOTE | 2017-06-26 08:59 | SOAPPROG ---
SOAP Progress Note Assessment/Plan: Assessment: Schizoaffective Disorder - bipolar type History of catatonia Low weight, anemia (on iron, folic acid), history of dehydration Self-inflicted lacerations to left wrist 05/23/17 and 06/03/17 Patient denies SI or HI or command hallucinations. Patient today appears less preoccupied with better facial expression and is less guarded/paranoid regarding family/friends. Patient continues to be isolative, needing prompts for meals and hygiene, minimal speech with staff/patients. Patient yesterday napped and slept excessively overnight 10 hours and has mild EPS/cogwheeling/slowing , likely due to Depakote/Invega combination. Depakote can raise Risperdal/Invega levels. Plan: Short Term Certification expires August 22 [address] Ordered Medication: Reduce Depakote 750mg QHS Discontinue Invega - lower 1.5mg capsule unavailable Restart Risperdal 0.5mg QHS. Monitor EPS. PRN Ativan PO/IM 1mg if having recurrence of catatonia or severe anxiety Monitor mood stability and grandiosity and paranoia Monitor PO fluid intake, % meals taken, daily weights; monitor ADLs and blood pressure 06/26/17 09:07 Subjective: CC: "I'm OK" Patient reports feeling slowed and tired by medication, then later reports feeling 'more awake, maybe because I rested so much.' Denies SI or HI or command AH. Denies feeling stiff or shaky. Reports she doesn't want to talk about recent focus on 'purification' but reports no plans to fast or harm self again. Reports she is willing to talk to family and friends on phone but doesn' t want to meet with them in person until discharged. Denies feeling hopeless, helpless, or having any thoughts of . Denies feeling agitated or irritable or anxious. Objective: Vital Signs Temp Pulse Resp BP Pulse Ox 36.8 C 82 12 101/63 96 06/26/17 06:22 06/26/17 06:22 06/26/17 06:22 06/26/17 06:22 06/26/17 06:22 Laboratory Results 06/26/17 06:10 06/26/17 06:10 06/25/17 06/26/17 06/27/17 05:59 05:59 05:59 Intake Total 1999 1740 Balance 1999 1740 Valproic Acid level 118. BMP WNL except glucose 57. LFTs WNL except low albumin 3.4. CBC WNL except Hgb 12. CK WNL. Staff report patient eating 75% of meals. Napped yesterday and slept 10 hours overnight. Quiet, isolative, minimal speech, needs prompts for hygiene and meals. Thin WF, Ambulatory without weakness. Mild increased tone, trace cogwheeling. No tremors. Speech soft, few words. Mood 'OK.' Affect odd - brief smiling, then restricted. Thoughts brief with minimal detail. Denies SI or HI or command AH. Guarded when discussing family/friends but reports she will talk to them on the phone and allow them to visit. Reports not wanting to talk about recent focus on 'purification.' Insight poor. - Time Spent With Patient Time Spent With Patient: 20 minutes - Pending Discharge Pending Discharge Within 24 Hours: No Pending Discharge Within 48 Hours: No ICD10 Worksheet Patient Problems: Problems Problem Status Onset Schizoaffective disorder, bipolar type Acute Anemia Acute Catatonia Acute Eating disorder Acute
[2017-06-26] MEDS ORDERED: RISPERIDONE ODT 0.5 MG TAB SL SCH (21:00)
[2017-06-27] MEDS: FERROUS SULFATE 325 MG TAB PO SCH ×2 (09:04→20:03)
[2017-06-27] MEDS: FOLIC ACID 1 MG TAB PO SCH (09:05)
--- NOTE | 2017-06-27 14:29 | SOAPPROG ---
SOAP Progress Note Assessment/Plan: Assessment: Per Dr. Catalan's note: Assessment/Plan: Assessment: Schizoaffective Disorder - bipolar type History of catatonia Low weight, anemia (on iron, folic acid), history of dehydration Self-inflicted lacerations to left wrist 05/23/17 and 06/03/17 Patient denies SI or HI or command hallucinations. Patient today appears less preoccupied with better facial expression and is less guarded/paranoid regarding family/friends. Patient continues to be isolative, needing prompts for meals and hygiene, minimal speech with staff/patients. Patient yesterday napped and slept excessively overnight 10 hours and has mild EPS/cogwheeling/slowing , likely due to Depakote/Invega combination. Depakote can raise Risperdal/Invega levels. Plan: Short Term Certification expires August 22 [address] Ordered Medication: Reduce Depakote 750mg QHS Discontinue Invega - lower 1.5mg capsule unavailable Restart Risperdal 0.5mg QHS. Monitor EPS. PRN Ativan PO/IM 1mg if having recurrence of catatonia or severe anxiety Monitor mood stability and grandiosity and paranoia Monitor PO fluid intake, % meals taken, daily weights; monitor ADLs and blood pressure Plan: 06/27/17 14:24 1. Continue Fe supplement for iron deficiency anemia 2. Patient only slept 1-2 hrs per staff last night. She ate only 10% of breakfast. She told staff she was forcing herself to stay awake in order to meditate. She only ate 10% of breakfast. She told MD that it was b/c of "constipation." It's likely these are both sxs of delusions about spiritual "purification" which has been ongoing delusions during both admissions. 3. Patient has no evidence of EPS/cogwheeling/slowing. 4. Her BP was 121/73 yesterday and 102/52 today (on lower dose of meds). Her HR was 88. So patient's complaint that she feels more lightheaded and dizzy b/c " my blood pressure drops" when she is on higher dose of meds is not corroborated. 5. Will increase Depakote to 1000mg QHS to treat delusions/heidi and increase Risperdal to 1mg QHS to treat mood/psychosis. There are no signs of catatonia or EPS at present, but will continue to monitor for any recurrence of these conditions. Subjective: Met with patient, reviewed chart and d/w staff. Patient is sitting in chair by window in common area staring outside. She tells MD, "I'm feeling fine doctor." She tells MD that "Dr. Catalan wanted you to check for cogwheeling." When MD asks patient to relax, she tenses her arm and makes it difficult for MD to move. When MD asks patient to count backward from 10, she asks, "can I do it in Turkish?" When she is distracted, her arm immediately relaxes and there is no evidence of cogwheeling or rigidity. Patient told staff last night that she was "keeping myself awake" in order to meditate. Staff report she was seated on top of her mattress cross-legged. She only ate 10% of breakfast and drank 50cc's of water. However, when MD encouraged patient to drink plenty of fluids, she showed MD that she had drunk 1/2 her bottle of water since breakfast. Objective: Vital Signs Temp Pulse Resp BP Pulse Ox 37.0 C 88 14 102/52 L 95 06/27/17 06:15 06/27/17 06:15 06/27/17 06:15 06/27/17 06:15 06/27/17 06:15 Laboratory Results 06/26/17 06:10 06/26/17 06:10 06/26/17 06/27/17 06/28/17 05:59 05:59 05:59 Intake Total 1740 2250 Balance 1740 2250 MSE: Affect: Flat Mood: "Fine" TP: Loose, illogical TC: Denies any SI/HI, denies AH/VH, still paranoid, religiously preoccupied and delusional ( "purification" practice) Insight/Judgment: Impaired - Time Spent With Patient Time Spent With Patient: 25" - Pending Discharge Pending Discharge Within 24 Hours: No Pending Discharge Within 48 Hours: No ICD10 Worksheet Patient Problems: Problems Problem Status Onset Schizoaffective disorder, bipolar type Acute Anemia Acute Catatonia Acute Eating disorder Acute
[2017-06-27] MEDS ORDERED: DIVALPROEX NA 500 MG TAB PO SCH (21:00)
[2017-06-27] MEDS ORDERED: RISPERIDONE ODT 0.5 MG TAB SL SCH (21:00)
[2017-06-28] MEDS: FERROUS SULFATE 325 MG TAB PO SCH ×2 (13:38→20:16)
[2017-06-28] MEDS: FOLIC ACID 1 MG TAB PO SCH (13:38)
[2017-06-28] MEDS ORDERED: DIVALPROEX NA 500 MG TAB PO SCH (13:59)
[2017-06-28] MEDS ORDERED: HALOPERIDOL LACT 5 MG/ML INJ IM ONE (14:16)
[2017-06-28] MEDS ORDERED: HALOPERIDOL LACT 5 MG/ML INJ ONE (14:23)
[2017-06-28] MEDS ORDERED: LORazepam 2 MG/ML INJ IM ONE (14:30)
--- NOTE | 2017-06-28 14:49 | SOAPPROG ---
SOAP Progress Note Assessment/Plan: Assessment: Per Dr. Catalan's note: Assessment/Plan: Assessment: Schizoaffective Disorder - bipolar type History of catatonia Low weight, anemia (on iron, folic acid), history of dehydration Self-inflicted lacerations to left wrist 05/23/17 and 06/03/17 Patient denies SI or HI or command hallucinations. Patient today appears less preoccupied with better facial expression and is less guarded/paranoid regarding family/friends. Patient continues to be isolative, needing prompts for meals and hygiene, minimal speech with staff/patients. Patient yesterday napped and slept excessively overnight 10 hours and has mild EPS/cogwheeling/slowing , likely due to Depakote/Invega combination. Depakote can raise Risperdal/Invega levels. Plan: Short Term Certification expires August 22 [address] Ordered Medication: Reduce Depakote 750mg QHS Discontinue Invega - lower 1.5mg capsule unavailable Restart Risperdal 0.5mg QHS. Monitor EPS. PRN Ativan PO/IM 1mg if having recurrence of catatonia or severe anxiety Monitor mood stability and grandiosity and paranoia Monitor PO fluid intake, % meals taken, daily weights; monitor ADLs and blood pressure Plan: 06/27/17 14:24 1. Continue Fe supplement for iron deficiency anemia 2. Patient only slept 1-2 hrs per staff last night. She ate only 10% of breakfast. She told staff she was forcing herself to stay awake in order to meditate. She only ate 10% of breakfast. She told MD that it was b/c of "constipation." It's likely these are both sxs of delusions about spiritual "purification" which has been ongoing delusions during both admissions. 3. Patient has no evidence of EPS/cogwheeling/slowing. 4. Her BP was 121/73 yesterday and 102/52 today (on lower dose of meds). Her HR was 88. So patient's complaint that she feels more lightheaded and dizzy b/c " my blood pressure drops" when she is on higher dose of meds is not corroborated. 5. Will increase Depakote to 1000mg QHS to treat delusions/heidi and increase Risperdal to 1mg QHS to treat mood/psychosis. There are no signs of catatonia or EPS at present, but will continue to monitor for any recurrence of these conditions. 06/28/17 14:43 1. This afternoon, patient attempted to brunson the door to get off unit. She had to be physically restrained by staff. She was given IM meds: Haldol 5mg, Ativan 1mg and Benadryl 50mg. Started EMED DAY #1, if patient refuses Risperdal PO. 2. Patient was placed on AP and SPII after she told RN she would not contract for safety, and would not contract not to assault peers after she mentioned "shoving" aside one of peer's visitors last night in order to get off the unit. 3. Patient ate 50% of breakfast and 30% of lunch, and drank 400cc's of milk, juice and water this AM. 4. Patient is more psychotic and delusional. She put all her books, journals and papers into her trash can this AM, and told RN that she was making "a sacrifice to God" of all her belongings. 5. Will increase Depakote to 1,250 which is only 25mg/kg based on her weight of 49.124kg. Based on her sxs, could titrate to higher dose, but will be cautious since also increasing SGA at same time, and giving IM meds. 6. Increased Risperdal to 1mg BID, with target of 4-6mg daily. Subjective: Met with patient, reviewed chart and d/w staff. Patient was sitting on bed this AM "meditating." She only ate 50% of breakfast which was only a bowl of cereal and some milk. She did drink about 400cc's of water and juice. She ate only 30% of lunch. After lunch patient became agitated and attempted to push her way through doors to "get off this unit." When staff tried to calm patient down and redirect her back to her room, she became physically aggressive and tried to push staff. She was escorted to seclusion room and given IM meds. Objective: Vital Signs Temp Pulse Resp BP Pulse Ox 36.3 C 78 14 111/58 L 96 06/28/17 06:30 06/28/17 06:30 06/28/17 06:30 06/28/17 06:30 06/28/17 06:30 Laboratory Results 06/26/17 06:10 06/26/17 06:10 06/27/17 06/28/17 06/29/17 05:59 05:59 05:59 Intake Total 2250 1500 Balance 2250 1500 MSE: Affect: Irritable, labile Mood: Angry TP: Disorganized, illogical TC: Paranoid, delusional, religiously preoccupied Insight/Judgment: Impaired - Time Spent With Patient Time Spent With Patient: 20" - Pending Discharge Pending Discharge Within 24 Hours: No Pending Discharge Within 48 Hours: No ICD10 Worksheet Patient Problems: Problems Problem Status Onset Schizoaffective disorder, bipolar type Acute Anemia Acute Catatonia Acute Eating disorder Acute
[2017-06-28] MEDS ORDERED: LORazepam 2 MG/ML INJ IM PRN (14:52)
[2017-06-28] MEDS ORDERED: HALOPERIDOL LACT 5 MG/ML INJ IM PRN (14:52)
[2017-06-28] MEDS ORDERED: BENZTROPINE MESYLATE 2 MG/2 ML INJ IM PRN (14:52)
[2017-06-28] MEDS ORDERED: BENZTROPINE MESYLATE 1 MG TAB PO SCH (21:00)
[2017-06-28] MEDS ORDERED: LORazepam 1 MG TAB PO SCH (21:00)
[2017-06-28] MEDS ORDERED: RISPERIDONE ODT 0.5 MG TAB SL SCH (21:00)
[2017-06-29 09:15] LABS: CREATINE KINASE 288 IU/L (0-156)
[2017-06-29] MEDS ORDERED: LORazepam 2 MG/ML INJ IM PRN ×2 (10:32→13:16)
[2017-06-29] MEDS ORDERED: ZIPRASIDONE MESYLATE 20 MG VIAL IM PRN (10:33)
[2017-06-29] MEDS ORDERED: RISPERIDONE 2 MG ODT TAB SL PRN (10:34)
[2017-06-29] MEDS ORDERED: LORazepam 1 MG TAB PO ONE (10:37)
[2017-06-29] MEDS ORDERED: LORazepam 1 MG TAB ONE (10:39)
--- NOTE | 2017-06-29 10:42 | SOAPPROG ---
SOAP Progress Note Assessment/Plan: Assessment: Catatonia Schizoaffective Disorder - bipolar type Low weight, anemia (on iron, folic acid), history of dehydration, hypoglycemia Self-inflicted lacerations to left wrist 05/23/17 and 06/03/17 Patient had severe decompensation over past 3 days, following transition from Ativan to Depakote and reduction of antipsychotic dose. Patient has psychotic symptoms with very poor intake and weight loss over the past few days (BMI 17.5) and hypoglycemia. Patient reports continued thoughts of fasting and cutting wrist. Patient was agitated, attempted to elope from unit, was combative with staff, required seclusion and IM medications yesterday. Patient this AM alternatively mute and not talking, then having excited agitation, trying to barricade herself into her room. Plan: Short Term Certification expires August [address] Ordered Medication: Discontinue Depakote - ineffective Ativan 2mg now Increase scheduled Ativan 1mg TID with meals PO/IM - court ordered Reduce Risperdal 2mg QHS, if refused Geodon 10mg IM - court ordered Consider Emergency ECT if medically stable Consider rechecking BMP and CK in 48 hours, earlier if not eating/drinking Monitor PO intake, % meals; Vitals TID SP2 and assault precautions 06/29/17 11:16 Subjective: CC: "I don't want to be here" "I want privacy" Patient has minimal speech. Reports continued thoughts of 'meditation and purification' and thoughts of not eating and cutting her wrist 'to purify' herself, and wants things destroyed as a sacrifice to God. Doesn't believe that she has mental illness and doesn't want medication or treatment. Unable to explain seclusion episode, other than "I want to leave.' Denies feeling stiff or slow. Objective: Vital Signs Temp Pulse Resp BP Pulse Ox 36.3 C 92 16 89/54 L 96 06/29/17 06:18 06/29/17 06:18 06/29/17 06:18 06/29/17 06:18 06/29/17 06:18 Laboratory Results 06/26/17 06:10 06/29/17 04:00 06/28/17 06/29/17 06/30/17 05:59 05:59 05:59 Intake Total 1500 300 Balance 1500 300 BMP WNL except glucose 39. Recheck glucose after patient ate 1/2 of breakfast was 103. CK 288 Tired WF. Appears quiet and internally preoccupied. Odd affect with quiet/ soft speech. Mood 'don't want to be here' affect labile - initially preoccupied , later odd smiling, later agitated and pacing. Reports continued thoughts of cutting wrist and fasting to 'meditate and purify myself.' Denies command AH. Mild cogwheeling. No insight. Staff report patient had severe decompensation since Thursday06/26/17 with poor PO intake, continued delusions of meditating and having her possessions destroyed as a sacrifice to God, fasting; agitation with two attempted elopements, yesterday was combative and scratched staff's arms and required restraints and seclusion for severe agitation and disorganization; in seclusion stripped off clothes, urinated on floor, was masturbating and later slept 16 hours (got IM ativan/haldol/benadryl during seclusion, as well as depakote, risperdal, ativan at 21:00. This AM patient needed multiple prompts to eat and drink. Was quiet and isolative, then agitated and tried to slam door on staff who were watching her, spit out Ativan 2mg PO offered and later got Ativan 2mg IM. - Time Spent With Patient Time Spent With Patient: 25 minutes - Pending Discharge Pending Discharge Within 24 Hours: No Pending Discharge Within 48 Hours: No ICD10 Worksheet Patient Problems: Problems Problem Status Onset Schizoaffective disorder, bipolar type Acute Anemia Acute Catatonia Acute Eating disorder Acute
[2017-06-29] MEDS ORDERED: LORazepam 2 MG/ML INJ IM ONE (10:43)
[2017-06-29] MEDS ORDERED: LORazepam 2 MG/ML INJ ONE (10:45)
[2017-06-29] MEDS ORDERED: LORazepam 1 MG TAB PO SCH ×2 (11:00→21:00)
[2017-06-29] MEDS: FOLIC ACID 1 MG TAB PO SCH (11:23)
[2017-06-29] MEDS: FERROUS SULFATE 325 MG TAB PO SCH ×2 (11:23→21:27)
[2017-06-29] MEDS ORDERED: LORazepam 1 MG TAB PO PRN (14:12)
[2017-06-29] MEDS ORDERED: LORazepam 1 MG/0.5 ML UDSYR PO PRN (14:44)
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
[2017-06-29] MEDS ORDERED: LORazepam 1 MG/0.5 ML UDSYR PO SCH (21:00)
[2017-06-29] MEDS ORDERED: RISPERIDONE 2 MG ODT TAB SL SCH (21:00)
[2017-06-30] MEDS: FOLIC ACID 1 MG TAB PO SCH (08:16)
[2017-06-30] MEDS: FERROUS SULFATE 325 MG TAB PO SCH ×2 (08:16→21:11)
[2017-06-30] MEDS ORDERED: LORazepam 2 MG/ML INJ IM PRN ×3 (08:43→12:55)
[2017-06-30] MEDS ORDERED: LORazepam 1 MG/0.5 ML UDSYR PO SCH ×2 (09:00→12:10)
--- NOTE | 2017-06-30 09:02 | CPEKG ---
Heart Rate: 110 RR Interval: 545 P-R Interval: 176 QRSD Interval: 78 QT Interval: 328 QTC Interval: 444 P [place]: 80 QRS [place]: 96 T Wave [place]: 50 EKG Severity - OTHERWISE NORMAL ECG - EKG Impression: SINUS TACHYCARDIA Electronically Signed By: Gray Appiah 30-Jun-2017 09:31:20
--- NOTE | 2017-06-30 09:14 | SOAPPROG ---
SOAP Progress Note Assessment/Plan: Assessment: Catatonia Schizoaffective Disorder - bipolar type versus Bipolar Disorder with psychotic features Low weight, anemia (on iron, folic acid), history of dehydration, hypoglycemia Self-inflicted lacerations to left wrist 05/23/17 and 06/03/17 Possible rosacea Patient has continued catatonia symptoms - sitting quietly and mute mostly, able to follow prompts to eat breakfast this AM, able to speak only 1-2 sentences. Patient reports continued delusional thoughts that she needs to fast, harm herself, destroy her possessions, and not talk to family/friends, but is more calm this AM. Patient had brief excitement overnight, attempted to barricade herself in her room, at other times was mostly quiet, hypokinetic, minimal speech. Patient improved this AM but had severe hypotension with 2mg Lorazepam yesterday AM, required IV fluids 2liters in [facility] ED. Patient tolerated Ativan 1mg last night with stable BP this AM. Plan: Short Term Certification expires August 22 2017 Discontinue Risperdal. Plan future antipsychotic trial after catatonia resolves. Court Ordered Medication: Ativan 0.5mg BID and PRN, Liquid-PO/IM, monitor for sedation and hypotension. Dr. Fortune applied for court ordered ECT. Discussed extensively with patient benefit of ECT trial. Patient agreeing to discuss this further with Dr. Fortune and her court appointed tax attorney. Monitor PO intake, % meals; Vitals TID Line of sight monitoring due to risk of self-harm and impulse behavior Requested non-urgent visit by Dr. Marroquin regarding possible rosacea versus other dermatitis 06/30/17 09:24 Subjective: CC: "I want to leave" Patient reports eating some breakfast this AM. Reports continuing to get a message to 'meditate, purify myself.' With structured questioning reports continued thoughts of fasting, meditating indefinitely, thinking that her possessions need to be destroyed, that she should harm herself. Denies plan/ intent to harm self and reports wanting to live for children. Denies feeling tired or sedated this AM. Agreeable now to further discuss ECT with Dr. Fortune and with court appointed tax attorney. Reports redness in checks since of youngest child 4 years ago. Objective: Vital Signs Temp Pulse Resp BP Pulse Ox 36.6 C 98 16 110/69 96 06/30/17 06:29 06/30/17 06:29 06/30/17 06:29 06/30/17 06:29 06/30/17 06:29 Laboratory Results 06/26/17 06:10 06/29/17 04:00 06/29/17 06/30/17 07/01/17 05:59 05:59 05:59 Intake Total 300 2500 Balance 300 2500 Alert thin WF. Possible worsening erythema on cheeks. Ambulatory without weakness or tremors. Speech soft few words, 1-2 sentences only. Mild slowing. Thoughts brief, illogical with delusions that she needs to destroy her possessions, harm herself, fast, or meditate indefinitely. Denies plan/intent to harm self and wants to live for her children. Denies AH but reports ' getting a message.' Insight very poor. Denies violent thoughts. Judgment impaired. Staff report after patient has severe hypotension yesterday AM after 2mg Lorazepam, got 2 liters IVF in [facility] ER. After return was quiet, minimal speech, able to eat 75% dinner, needed prompts for hygiene. At 4am briefly excited and agitated and attempted to barricade herself in her room. - Time Spent With Patient Time Spent With Patient: 20 minutes - Pending Discharge Pending Discharge Within 24 Hours: No Pending Discharge Within 48 Hours: No ICD10 Worksheet Patient Problems: Problems Problem Status Onset Schizoaffective disorder, bipolar type Acute Anemia Acute Catatonia Acute Eating disorder Acute
[2017-06-30] MEDS ORDERED: LORazepam 1 MG/0.5 ML UDSYR PO PRN (12:55)
--- NOTE | 2017-06-30 14:23 | SOAPPROG ---
SOAP Progress Note Assessment/Plan: Assessment: Plan: 06/29/17 15:00 Pt continues to do poorly with ongoing psychotic sx's and recurrent catatonia. Efforts to manage psychosis with low dose antipsychotic medications were ineffective and increased doses caused recurrence of catatonia. The ongoing severity of her symptom is life-threatening due to refusal to adequately eat or drink causing dehydration and increased CK as well as the persistence of aggressive and self-destructive behaviors based in delusional thoughts. It is my opinion that efforts to manage this patient with medications have been exhausted and further adjustments will not be beneficial and will cause real harm in the form of continued or worsened catatonia. I agree with Dr. Catalan' s recommendation for ECT. I believe ECT will be helpful for her underlying mood and psychotic sx's and rapidly reverse the catatonia. Pt is unwilling to voluntarily pursue ECT, so I will submit a request to the Court for involuntary treatment. I do not believe she represents an emergency at this point in time, but if she continues to refuse to eat or drink and/or her medical condition deteriorates any further, or if her aggressive and/or self-destructive behaviors worsen, I believe she will. I agree with d/c'ing VPA, tapering Risperdal, continuing scheduled lorazepam and ongoing 1:1 observation. 06/30/17 14:22 Catatonia: Continues. Await possible stipulation vs. court hearing. Agree with d/c'ing Risperdal at this time and continuing TID lorazepam to keep the retarded catatonia sx's in check. Subjective: Pt seen, discussed with staff. Lucid and spontaneous this morning after receiving lorazepam. This changed several hours later and she became mute, unable to interact, demonstrating catalepsy and urinating on the floor. Dr. Catalan and I reviewed the treatment plan inc: use of ECT. Pt states she understands the purpose of this and is agreeable to proceeding. Objective: Vital Signs Temp Pulse Resp BP Pulse Ox 36.8 C 97 15 114/78 97 06/30/17 08:00 06/30/17 08:00 06/30/17 08:00 06/30/17 08:00 06/30/17 08:00 Laboratory Results 06/26/17 06:10 06/29/17 04:00 0406/30/17 07/01/17 05:59 05:59 05:59 Intake Total 300 2500 500 Balance 300 2500 500 - Time Spent With Patient Time Spent With Patient: 25" ICD10 Worksheet Patient Problems: Problems Problem Status Onset Schizoaffective disorder, bipolar type Acute Anemia Acute Catatonia Acute Eating disorder Acute
--- NOTE | 2017-06-30 15:16 | SOAPPROG ---
SOAP Progress Note Assessment/Plan: Assessment: Facial rash, likely rosacea. No other features to suggest SLE. * Will treat with topical metronidazole. If inadequate response in 2 - 4 weeks , consider addition of oral doxycycline. * If no response, consider alternative diagnoses, initially seborrheic keratosis. 06/30/17 15:10 Subjective: ATSP re facial rash, possible rosacea. She denies any discomfort. She says she 's treated it with a lotion, has had it for years, and has a previous diagnosis of rosacea. Denies hair loss, joint pain, mouth sores. Objective: Vital Signs Temp Pulse Resp BP Pulse Ox 36.8 C 97 15 114/78 97 06/30/17 08:00 06/30/17 08:00 06/30/17 08:00 06/30/17 08:00 06/30/17 08:00 Laboratory Results 06/26/17 06:10 06/29/17 04:00 06/29/17 06/30/17 07/01/17 05:59 05:59 05:59 Intake Total 300 2500 500 Balance 300 2500 500 Physical Exam - Physical Exam General Appearance: WD/WN, alert, no apparent distress, thin EENT: other (MMs moist. Minimal erytehmatous spots on tonsillar pillars. No sores.) Skin: other (Malar rash of confluent erythematous papules, indistinct margins, papules also extending towards temples and perioral area. Minimal scale. No telangiectasias. NO ocular involvement.) ICD10 Worksheet Patient Problems: Problems Problem Status Onset Schizoaffective disorder, bipolar type Acute Anemia Acute Catatonia Acute Eating disorder Acute
[2017-06-30] MEDS: METRONIDAZOLE 0.75% 45 GM CREAM TP SCH (17:06)
[2017-06-30] MEDS: LORazepam 1 MG/0.5 ML UDSYR PO SCH ×2 (17:06→21:11)
[2017-07-01] MEDS ORDERED: MIDAZOLAM 2 MG/2 ML VIAL ONE (08:01)
[2017-07-01] MEDS ORDERED: fentaNYL 100 MCG/2 ML INJ ONE (08:01)
[2017-07-01] MEDS ORDERED: GLYCOPYRROLATE 0.2 MG/1 ML VIAL ONE (08:01)
[2017-07-01] MEDS ORDERED: ROCURONIUM 50 MG/5 ML VIAL ONE (08:02)
[2017-07-01] MEDS ORDERED: ONDANSETRON 4 MG/2 ML VIAL ONE (08:02)
[2017-07-01] MEDS ORDERED: ETOMIDATE 20 MG/10 ML VIAL ONE (08:02)
[2017-07-01] MEDS ORDERED: SUCCINYLCHOLINE CHLORIDE 200 MG/10 ML VIAL ONE (08:02)
[2017-07-01] MEDS: METRONIDAZOLE 0.75% 45 GM CREAM TP SCH (09:00)
[2017-07-01] MEDS ORDERED: CITRIC ACID/SODIUM CITRATE 30 ML UDCUP PO PRN (10:28)
[2017-07-01] MEDS ORDERED: ONDANSETRON DISINTEGRATING 4 MG TAB PO PRN (10:28)
[2017-07-01] MEDS ORDERED: ONDANSETRON DISINTEGRATING 4 MG TAB ONE (10:51)
[2017-07-01] MEDS ORDERED: CITRIC ACID/SODIUM CITRATE 30 ML UDCUP ONE (10:51)
[2017-07-01] MEDS: NS 1,000 ML IV PRN (11:08)
--- NOTE | 2017-07-01 11:35 | PDECTPN ---
ECT Progress Note Patient Problems: Problems Problem Status Onset Code Schizoaffective disorder, bipolar type Acute F25.0 Anemia Acute D64.9 Catatonia Acute F06.1 Eating disorder Acute F50.9 Date: 07/01/17 Treatment#: 1 ECT provider: Galindo Fortune Anesthesia: Nilo Fonseca Pulse width: 0.5 ECT EMG (sec): 19 ECT EEG (sec): 40 ECT treatment type: bilateral QIDS-SR Total Score: 23 QIDS-SR Question #12 Score: 2 MMSE Total Score (Max = 21): 20 Next ECT date: 07/03/17 Next ECT time: 07:30 O/P psychiatrist follow up: direct communication Medication review: completed Current treatment plan: acute phase Treatment plan frequency: 3 times per week ECT narrative: Pt presents for initial acute course ECT treatment due to protracted catatonia. She has been in the inpatient psychiatric unit for >6 weeks with persistent paranoid and hyperreligious delusions, AH's, and both retarded and excited catatonic sx's. She has been unable to tolerate antipsychotic medications with worsening of catatonia. VPA has been ineffective. Lorazepam has helped. She has engaged in self-harming and has experienced continuous SI. She is agreeable to stipulation to court ordered ECT at this time. I spoke with her yesterday and today re: goals for ECT treatment inc: resolution of catatonia, improvement of psychosis, and stabilization of possible underlying bipolar d/o. She is lucid today, able to participate in discussion of risks, benefits and alternatives of ECT treatment and ask appropriate questions. She underwent initial bilateral ECT treatment without complication.
--- NOTE | 2017-07-01 11:41 | PDHPUP ---
History & Physical Update H&P update statement: This history and physical update is based on an assessment of the patient which was completed after admission or registration (within 24 hours), but prior to the surgery/procedure. H&P update: H&P reviewed & patient examined, no change in patient's condition since H&P completed
--- NOTE | 2017-07-01 11:41 | PDANEPAE ---
ECT Pre Anesthetic Evaluation Allergies/Adverse Reactions: No Known Allergies Allergy (Unverified 05/20/17 19:41) Patient ID confirmed: Yes H&P reviewed: Yes Pre-anesthetic history reviewed: Yes Heart: regular rate and rhythym, no murmur, rub, or gallop Lungs: no respiratory distress, clear to auscultation Mallampati Score: Class 3 ASA Status: III Medication review: completed Patient interviewed: Yes Patient examined: Yes Anesthetic plan discussed with patient: Yes Anesthetic risks discussed with patient: Yes ECT Pre-Anesthetic History - Height & Weight Height: 167.64 cm Weight: 48.988 kg BMI: 17.44 - Medications In the Past 6 Months the Patient Has Taken: Tranquilizers - Tobacco/Alcohol/Drug Use Smoking Status: Never smoked Hx Drug/Substance Abuse: No Alcohol Use: Yes Type(s) Of Alcohol: wine or beer Alcohol Quantity: 1 Alcohol Frequency: once a month - Prior Surgeries/Hospitalizations Prior Surgeries: Knee surgery twice (once with complete anesthesia and once with local) Prior Medical Hospitalizations: None - Pulmonary History ECT Hx Asthma: No Hx Abnormal Chest X-Ray: No Hx Oxygen in Use at Home: No - Cardiovascular History Hx Hypertension: No Currently Uses Hypertension Medication: No Hx Arrhythmias: Yes Hx Palpitations: Yes Hx Chest Pain: No Hx Coronary Artery / Peripheral Vascular Disease: No Hx Blood Clot: No Cardiovascular History Comment: Prolapsed mitral valve, congenital, 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21 - Neurologic History Hx Cerebrovascular Accident: No Hx CT Scan Or MRI Of The Brain: Yes Hx Epilepsy, Convulsions, Seizures, Or Blackouts: No Hx Frequent Or Severe Headaches: No Hx Numbness: No Hx Neurologic Disorder: No - Dental History Current Dental Issues: None - Endocrine History Hx Diabetes: No Current Daily Insulin Injections: No Hx Thyroid Problems: No - Renal/Urologic History Hx Renal Disorders: No Hx Urinary Tract Problems: No - Liver History Hx Hepatic Disorders: No - Cancer History Hx Cancer: No Cancer History Comment: abnormal pap smear - Hematology History Hx Unexplained Bleeding Of Any Type: No Hx Ease Of Bruising: No Hx Anemia: Yes Hematology History Comment: recently taking iron - Gastrointestinal History Hx Gastroesophogeal Reflux Disease: No Hx Ulcers: No Hx Hiatal Hernia: No Hx Difficulty Swallowing: No - Musculoskeletal Hisory Hx Chronic Pain: No Hx Arthritis: No - Opthalmic History Hx Glaucoma: No Visual Assistive Devices: Glasses Hx Opthalmic Disorders: No - Other Health History Physical Disabililty: No Recent Cough, Cold, or Fever: No Significant Weight Loss In The Last 4 Months: Yes Possible the Patient Might be : No Other Health History Comment: 15 lbs
--- NOTE | 2017-07-01 11:51 | PDECTIHP ---
ECT Interval H&P General health: In collaboration with Anesthesiology, potential benefits of treatment outweigh risk. Focused physical exam including relevant body area/organ sys: alert & oriented, moves all extremities, no progressively increasing headaches, no ataxia, no evidence of delirium, no focal sensory deficits, no focal weakness, speech normal
--- NOTE | 2017-07-01 11:58 | POSTANESTH ---
Post Anesthetic Evaluation Cardiovascular Status: Normal, Stable Respiratory Status: Normal, Stable, Requires Airway Assist Level of Consciousness/Mental Status: Unconscious Pain Control: Adequate, Prn Tx Ordered Nausea/Vomiting Control: Adequate, Prn Tx Ordered Complications Possibly Related to Anesthesia: None Noted
[2017-07-01] MEDS: LORazepam 1 MG/0.5 ML UDSYR PO SCH ×3 (13:05→21:45)
[2017-07-01] MEDS: FERROUS SULFATE 325 MG TAB PO SCH ×2 (13:07→19:33)
[2017-07-01] MEDS: FOLIC ACID 1 MG TAB PO SCH (13:07)
--- NOTE | 2017-07-01 16:56 | BDS ---
[f rep st] BEHAVIORAL HEALTH DISCHARGE SUMMARY INTERIM SUMMARY IDENTIFICATION: This is a 41-year-old white female who was recently discharged from the inpatient psychiatric unit at [facility] to [facility], which is a residential treatment program operated by [facility]. 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 She is estranged from her , Zhao Todd, phone number [phone]. He is caring for her 2 children. The patient's brother, Naveen Olivarez, phone number [phone], lives in [place], [place]. The patient is originally from [facility] and immigrated to the [place] several years ago. Her mother and sister live in [place]. REASON FOR ADMISSION: Please see the psychiatric evaluation assessment from June 16, 2017. The patient had been recently discharged from the inpatient psychiatric unit here at [facility] to [facility]. She there apparently immediately decompensated and made psychotic statements about wanting all of her possessions destroyed. She apparently called her friend, Mirna Arriaza, phone number [phone], and reported to her that she wanted her things destroyed, otherwise, she will cut her wrists. The patient was also guarded and not able to contract for safety with the residential staff. She was then placed on an M1 hold by Dr. Hennessy, a psychiatrist in that program. She was then taken to the [facility] Emergency Department on an M1 hold. The evaluation there indicated the patient reported auditory and visual hallucinations of a demon and appeared psychotic. The patient was then readmitted to the inpatient unit on here at [facility]. HOSPITAL COURSE: The patient was admitted on an M1 hold through the [facility]. However, the patient was on a short-term certification from her previous hospitalization that was being held at [facility] while she received treatment at [facility]. This is case #[id number]. That expires August 25, 2017, and includes court-ordered medications. Due to the patient's decompensation and lack of insight into her mental illness, the patient was switched from low-dose Seroquel to Risperdal 2 mg at bedtime with a plan to transition to a long-acting injectable antipsychotic. The patient was on lorazepam 1 mg p.o. three times daily for a history of catatonia. The patient adamantly denied making threats to cut her wrists. However, she did make persistent bizarre delusional statements about being on a mission from God to purify her life and this included destroying all of her past possessions, not talking to her friends or family, meditating and possibly not eating or cutting her wrists in the future. She denied hearing voices, but at times appeared to be responding to internal stimuli and reported receiving some type of a message from God regarding her behavior. The patient, with a combination of Risperdal and Ativan, continued to appear delusional. She was quite isolative to her room with minimal speech to other peers or other patients on the unit. She was isolative, quiet, and was not attending groups or communicating with her family. She needed prompts to attend meals or attend to hygiene. She would sometimes perform yoga or sit quietly and read or stare out the window. She was cooperative and pleasant with interviews, but would continue to make bizarre, nihilistic and grandiose delusional statements. The patient was initially eating fairly well, but was not attending any groups and was not talking to her family or friends. The patient's Risperdal was increased from 2 mg at night to 3 mg at night, and later 4 mg at night with limited improvement. The patient did have significant hypotension as the antipsychotic dose was titrated. This is likely due to a combination of a low weight with a BMI ranging from 17.5 to 18, combined with the side effects of antipsychotic medication and lorazepam causing hypotension. Due to the hypotension and persistent psychotic symptoms with impaired functioning, attempts were made to change her medications further as there appeared to be a grandiose or manic component to her delusional system. A decision was made to taper her lorazepam and cross taper that to Depakote as a mood stabilizer. At that point, the patient had been eating and drinking consistently and did not appear mute or having any type of posturing. The patient's Risperdal was also switched to Invega briefly due to concern that the Risperdal was causing a.m. hypotension. The patient initially tolerated the transition to Invega and Depakote off the Ativan and Risperdal. Then a few days later, she appeared very slowed down and sedated and hypokinetic and hypophonic. The Invega was then switched back to a low dose of Risperdal 0.5. Following these transitions, the patient had dramatic decompensation over the weekend of 06/27 and 06/28. The patient became more preoccupied internally and reporting that she was meditating with a plan to purify herself by not eating. She had a decline in her p.o. intake down to 25% of meals with reduced fluid intake. The patient also reported command hallucinations to purify her life, have her things destroyed, requested that staff destroy things in a sacrifice to God and reported getting messages again to cut her wrists. The patient then attempted to elope twice. When this occurred, it appeared to be a dramatic change in that she was having times where she was extremely quiet, internally preoccupied and then would get excited and run for the door. The 2nd time she did this was on 06/28 and at that point she was combative with staff and scratched staff's arms. She was then lead to seclusion. She received a Haldol injection of 5 mg, Ativan 1 mg IM and Benadryl 50 mg IM. The weekend of the and , the patient's Depakote dose was increased and her Risperdal dose was increased. Despite this, she did not have any clear improvement. On the morning of 06/29, the patient appeared catatonic, had hypoglycemia, and needed prompts and encouragement to eat and drink. She was sitting quietly on the side of her bed, staring at the wall with minimal speech but would follow some directions. She also reported hearing voices telling her to harm herself and to fast. She was not responsive to some questions. Due to concern that the patient was having a recurrence of catatonia with alternating negative hypokinetic symptoms alternating with excited agitation - including trying to barricade herself in her room, the patient was later given 2 mg of Ativan. This occurred after the patient had another episode of severe agitation where she ran to the door and slammed the door on the staff that was monitoring her. She apparently did this twice overnight on Thursday, 06/28 and the morning of . The patient became hypotensive with a lorazepam 2 mg dose. This was likely due to poor p.o. intake over the previous 72 hours, combined with the side effect in the medication, combined with a low body mass index. She was transferred to the [facility] Emergency Department, received IV fluids for hypotension and then returned to the unit. On the afternoon of Thursday, the , Dr. Fortune, the psychiatrist credentialed to do ECT on the unit, submitted a petition to the court requesting a court order for electroconvulsive therapy as a treatment for catatonia, as the patient was having recurrent hypotension with lorazepam and no clear response to trials of Depakote and Risperdal and difficulty tolerating Lorazepam, along with with severe symptoms that included: not eating and drinking, command hallucinations to harm self, inability to perform basic ADLS, and brief severe excitement leading to combative behavior with staff. The patient's who is from the patient but is her next of kin was notified of this. On Thursday, the patient continued to have catatonic symptoms of staring at the wall and not speaking. She had some disorganized behavior including urinating on herself and appearing confused. She also flipped over lunch tray for no clear reason without any explanation. She was given lorazepam , a total of 1.5 mg on Thursday the . The patient was able to have brief conversations about the potential benefit of ECT and later stipulated to receive electroconvulsive therapy to her court appointed estate attorney, after getting extensive education about the benefits of this medication to treat catatonia and the underlying mood component of her mental illness. Further inpatient treatment will be provided primarily by Dr. Fortune, who will initiate ECT. The patient remains on 15 minute SP1 suicide precautions. She is being monitored for her p.o. food intake and fluid intake due to risk of dehydration; she is on daily weights and TID vital signs due to recent weight loss and hypotension. DIAGNOSES: Catatonia Schizoaffective Disorder bipolar type versus Bipolar Disorder, mixed episode with psychotic features Anemia Dehydration Low body weight with episodic hypoglycemia Hypotension History of self-inflicted lacerations of left wrist CURRENT MEDICATION REGIMEN: Lorazepam liquid 0.5 mg p.o. three times daily for catatonia, iron sulfate, FeSO4 325 mg p.o. twice daily for anemia, folic acid 1 mg p.o. twice daily for anemia. LEGAL STATUS: The patient is on short-term certification with court-ordered ECT and court-ordered medications expiring 08/25. PROCEDURES: The patient had a brain MRI on June 26, 2017 to rule out underlying neurological disorder contributing to symptoms. This was read as normal. The patient had an EKG on 06/30 that showed heart rate 110, QTc interval 444 milliseconds, otherwise normal EKG with sinus tachycardia. LABORATORY: On 06/29, she had a white blood cell count 4.2, hemoglobin 12.6, platelet count 183. Sodium 140, potassium 3.7, creatinine 0.7, glucose 116, calcium 8.7. On 06/29, she also had a CK of 288. The morning of 06/29, the patient had a glucose of 39 after she had not been eating for over 24 hours. That improved to 116 after eating food. On 06/26, she had an AST 13, ALT 24, alkaline phosphatase 38, CK 32, albumin 3.4, Depakote level of 118. During the previous hospitalization on May 24, 2017, she had a TSH of 3.5. Serum beta hCG was negative. B12 was over 1000, LDL 93, HDL 75, triglycerides 135, AST 13 , ALT 24. She had a urinalysis June 09, 2017, that was normal. Her urine drug screen in 05/2017 was negative for drugs of abuse. /[id number]/MODL MTDD
[2017-07-02] MEDS: FOLIC ACID 1 MG TAB PO SCH (09:59)
[2017-07-02] MEDS: FERROUS SULFATE 325 MG TAB PO SCH ×2 (10:00→18:08)
[2017-07-02] MEDS: LORazepam 1 MG/0.5 ML UDSYR PO SCH ×3 (10:00→18:08)
[2017-07-02] MEDS: METRONIDAZOLE 0.75% 45 GM CREAM TP SCH (10:29)
--- NOTE | 2017-07-02 11:35 | SOAPPROG ---
SOAP Progress Note Assessment/Plan: Assessment: Plan: 06/29/17 15:00 Pt continues to do poorly with ongoing psychotic sx's and recurrent catatonia. Efforts to manage psychosis with low dose antipsychotic medications were ineffective and increased doses caused recurrence of catatonia. The ongoing severity of her symptom is life-threatening due to refusal to adequately eat or drink causing dehydration and increased CK as well as the persistence of aggressive and self-destructive behaviors based in delusional thoughts. It is my opinion that efforts to manage this patient with medications have been exhausted and further adjustments will not be beneficial and will cause real harm in the form of continued or worsened catatonia. I agree with Dr. Catalan' s recommendation for ECT. I believe ECT will be helpful for her underlying mood and psychotic sx's and rapidly reverse the catatonia. Pt is unwilling to voluntarily pursue ECT, so I will submit a request to the Court for involuntary treatment. I do not believe she represents an emergency at this point in time, but if she continues to refuse to eat or drink and/or her medical condition deteriorates any further, or if her aggressive and/or self-destructive behaviors worsen, I believe she will. I agree with d/c'ing VPA, tapering Risperdal, continuing scheduled lorazepam and ongoing 1:1 observation. 06/30/17 14:22 Catatonia: Continues. Await possible stipulation vs. court hearing. Agree with d/c'ing Risperdal at this time and continuing TID lorazepam to keep the retarded catatonia sx's in check. 07/02/17 11:35 Catatonia: Much improved after one treatment. CCM. Subjective: Pt seen, discussed with staff. Reports feeling "a lot better." States, "This is the first time in a long time that I can't communicate with the voices." She states she hasn't heard any voices since yesterday. She also states she feels calmer and denies any SI. She states she believes she can leave the hospital any time. Notes some initial moderate h/a after ECT yesterday, resolved. No other SE's. Objective: Vital Signs Temp Pulse Resp BP Pulse Ox 36.4 C 80 16 102/61 94 07/02/17 06:34 07/02/17 06:34 07/02/17 06:34 07/02/17 06:34 07/02/17 06:34 Laboratory Results 06/26/17 06:10 06/29/17 04:00 07/01/17 07/02/17 07/03/17 05:59 05:59 05:59 Intake Total 1350 1600 Balance 1350 1600 - Time Spent With Patient Time Spent With Patient: 25" ICD10 Worksheet Patient Problems: Problems Problem Status Onset Schizoaffective disorder, bipolar type Acute Anemia Acute Catatonia Acute Eating disorder Acute
[2017-07-03] MEDS ORDERED: GLYCOPYRROLATE 0.2 MG/1 ML VIAL ONE (05:31)
[2017-07-03] MEDS ORDERED: MIDAZOLAM 2 MG/2 ML VIAL ONE (05:31)
[2017-07-03] MEDS ORDERED: ONDANSETRON 4 MG/2 ML VIAL ONE (05:31)
[2017-07-03] MEDS ORDERED: fentaNYL 100 MCG/2 ML INJ ONE (05:31)
[2017-07-03] MEDS ORDERED: ROCURONIUM 50 MG/5 ML VIAL ONE (05:32)
[2017-07-03] MEDS ORDERED: ETOMIDATE 20 MG/10 ML VIAL ONE (05:32)
[2017-07-03] MEDS ORDERED: SUCCINYLCHOLINE CHLORIDE 200 MG/10 ML VIAL ONE (05:32)
[2017-07-03] MEDS ORDERED: NS 1,000 ML IV PRN (06:00)
[2017-07-03] MEDS ORDERED: ONDANSETRON DISINTEGRATING 4 MG TAB PO PRN (06:00)
[2017-07-03] MEDS ORDERED: CITRIC ACID/SODIUM CITRATE 30 ML UDCUP PO PRN (06:00)
[2017-07-03] MEDS ORDERED: ONDANSETRON DISINTEGRATING 4 MG TAB ONE (07:17)
[2017-07-03] MEDS ORDERED: CITRIC ACID/SODIUM CITRATE 30 ML UDCUP ONE (07:17)
[2017-07-03] MEDS: NS 1,000 ML IV PRN (07:20)
--- NOTE | 2017-07-03 07:46 | PDANEPAE ---
ECT Pre Anesthetic Evaluation Allergies/Adverse Reactions: No Known Allergies Allergy (Unverified 05/20/17 19:41) Patient ID confirmed: Yes H&P reviewed: Yes Pre-anesthetic history reviewed: Yes Heart: regular rate and rhythym, no murmur, rub, or gallop Lungs: no respiratory distress, clear to auscultation Mallampati Score: Class 3 ASA Status: III Medication review: completed Patient interviewed: Yes Patient examined: Yes Anesthetic plan discussed with patient: Yes Anesthetic risks discussed with patient: Yes ECT Pre-Anesthetic History - Height & Weight Height: 167.64 cm Weight: 49.079 kg BMI: 17.47 - Medications In the Past 6 Months the Patient Has Taken: Tranquilizers - Tobacco/Alcohol/Drug Use Smoking Status: Never smoked Hx Drug/Substance Abuse: No Alcohol Use: Yes Type(s) Of Alcohol: wine or beer Alcohol Quantity: 1 Alcohol Frequency: once a month - Prior Surgeries/Hospitalizations Prior Surgeries: Knee surgery twice (once with complete anesthesia and once with local) Prior Medical Hospitalizations: None - Pulmonary History ECT Hx Asthma: No Hx Abnormal Chest X-Ray: No Hx Oxygen in Use at Home: No - Cardiovascular History Hx Hypertension: No Currently Uses Hypertension Medication: No Hx Arrhythmias: Yes Hx Palpitations: Yes Hx Chest Pain: No Hx Coronary Artery / Peripheral Vascular Disease: No Hx Blood Clot: No Cardiovascular History Comment: Prolapsed mitral valve, congenital, 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21 - Neurologic History Hx Cerebrovascular Accident: No Hx CT Scan Or MRI Of The Brain: Yes Hx Epilepsy, Convulsions, Seizures, Or Blackouts: No Hx Frequent Or Severe Headaches: No Hx Numbness: No Hx Neurologic Disorder: No - Dental History Current Dental Issues: None - Endocrine History Hx Diabetes: No Current Daily Insulin Injections: No Hx Thyroid Problems: No - Renal/Urologic History Hx Renal Disorders: No Hx Urinary Tract Problems: No - Liver History Hx Hepatic Disorders: No - Cancer History Hx Cancer: No Cancer History Comment: abnormal pap smear - Hematology History Hx Unexplained Bleeding Of Any Type: No Hx Ease Of Bruising: No Hx Anemia: Yes Hematology History Comment: recently taking iron - Gastrointestinal History Hx Gastroesophogeal Reflux Disease: No Hx Ulcers: No Hx Hiatal Hernia: No Hx Difficulty Swallowing: No - Musculoskeletal Hisory Hx Chronic Pain: No Hx Arthritis: No - Opthalmic History Hx Glaucoma: No Visual Assistive Devices: Glasses Hx Opthalmic Disorders: No - Other Health History Physical Disabililty: No Recent Cough, Cold, or Fever: No Significant Weight Loss In The Last 4 Months: Yes Possible the Patient Might be : No Other Health History Comment: 15 lbs
--- NOTE | 2017-07-03 07:54 | PDECTPN ---
ECT Progress Note Patient Problems: Problems Problem Status Onset Code Schizoaffective disorder, bipolar type Acute F25.0 Anemia Acute D64.9 Catatonia Acute F06.1 Eating disorder Acute F50.9 Date: 07/03/17 ECT provider: Galindo Fortune Anesthesia: Nilo Fonseca Stimulus dose (%): 30 Pulse width: 0.5 ECT EMG (sec): 21 ECT EEG (sec): 35 ECT treatment type: bilateral QIDS-SR Total Score: 19 QIDS-SR Question #12 Score: 2 MMSE Total Score (Max = 21): 21 Next ECT date: 07/06/17 Next ECT time: 08:00 O/P psychiatrist follow up: direct communication Medication review: completed Current treatment plan: acute phase Treatment plan frequency: 3 times per week ECT narrative: Pt presents for continued acute course ECT. Calm and cooperative, reserved. Affect is blunted, stable. Behaviors on unit are much improved. She remains focused on d/c with unrealistic plan to return to work next week. Reports complete resolution of AH's and SI. She underwent initial bilateral ECT treatment without complication.
[2017-07-03] MEDS: LORazepam 1 MG/0.5 ML UDSYR PO SCH ×3 (12:27→21:47)
[2017-07-03] MEDS: FOLIC ACID 1 MG TAB PO SCH (12:27)
[2017-07-03] MEDS: FERROUS SULFATE 325 MG TAB PO SCH ×2 (12:27→21:46)
[2017-07-03] MEDS: METRONIDAZOLE 0.75% 45 GM CREAM TP SCH (12:49)
--- NOTE | 2017-07-03 17:57 | SOAPPROG ---
SOAP Progress Note Assessment/Plan: Assessment: Per Dr. Fortune's note: 06/29/17 15:00 Pt continues to do poorly with ongoing psychotic sx's and recurrent catatonia. Efforts to manage psychosis with low dose antipsychotic medications were ineffective and increased doses caused recurrence of catatonia. The ongoing severity of her symptom is life-threatening due to refusal to adequately eat or drink causing dehydration and increased CK as well as the persistence of aggressive and self-destructive behaviors based in delusional thoughts. It is my opinion that efforts to manage this patient with medications have been exhausted and further adjustments will not be beneficial and will cause real harm in the form of continued or worsened catatonia. I agree with Dr. Catalan' s recommendation for ECT. I believe ECT will be helpful for her underlying mood and psychotic sx's and rapidly reverse the catatonia. Pt is unwilling to voluntarily pursue ECT, so I will submit a request to the Court for involuntary treatment. I do not believe she represents an emergency at this point in time, but if she continues to refuse to eat or drink and/or her medical condition deteriorates any further, or if her aggressive and/or self-destructive behaviors worsen, I believe she will. I agree with d/c'ing VPA, tapering Risperdal, continuing scheduled lorazepam and ongoing 1:1 observation. 06/30/17 14:22 Catatonia: Continues. Await possible stipulation vs. court hearing. Agree with d/c'ing Risperdal at this time and continuing TID lorazepam to keep the retarded catatonia sx's in check. 07/02/17 11:35 Catatonia: Much improved after one treatment. CCM. Subjective: Pt seen, discussed with staff. Reports feeling "a lot better." States, "This is the first time in a long time that I can't communicate with the voices." She states she hasn't heard any voices since yesterday. She also states she feels calmer and denies any SI. She states she believes she can leave the hospital any time. Notes some initial moderate h/a after ECT yesterday, resolved. No other SE's. Plan: 07/03/17 17:53 1. Patient much improved after ECT x 2. She denies any psychotic sxs and says she no longer hears "voices." She also denies any SI/HI. 2. Patient says she believes she is "ready to go home." MD reminded patient that she will likely need several more ECT treatments. She agrees to d/w number of treatments with Dr. Fortune on Thursday. 3. Some PAN after ECT his AM, but better in afternoon. Ate 100% of lunch. Subjective: Met with patient, reviewed chart and d/w staff. Patient is sitting up in bed. She reports mild PAN after ECT this AM, but says she didn't take any pain reliever, and is feeling better. She ate 100% of lunch and is drinking adequate amounts of fluid. She claims that SI is "absolutely gone" and denies any hallucinations. There are no obvious signs of psychosis or delusions. She says she spoke with "my ex-" and he has agreed to "take me back" to her home after discharge. MD reminded patient that an acute course of ECT usually lasts for several treatments, but patient says "I'm ready to leave" the hospital. Objective: Vital Signs Temp Pulse Resp BP Pulse Ox 36.9 C 66 20 94/55 L 95 07/03/17 10:45 07/03/17 10:45 07/03/17 10:45 07/03/17 10:45 07/03/17 10:45 Laboratory Results 06/26/17 06:10 06/29/17 04:00 07/02/17 07/03/17 07/04/17 05:59 05:59 05:59 Intake Total 1600 1000 850 Balance 1600 1000 850 MSE: Affect: Flat Mood: "Better" TP: Linear TC: Denies any SI/HI, no evidence of psychosis Insight/Judgment: Improved - Time Spent With Patient Time Spent With Patient: 20" - Pending Discharge Pending Discharge Within 24 Hours: No Pending Discharge Within 48 Hours: No ICD10 Worksheet Patient Problems: Problems Problem Status Onset Schizoaffective disorder, bipolar type Acute Anemia Acute Catatonia Acute Eating disorder Acute
[2017-07-04] MEDS: LORazepam 1 MG/0.5 ML UDSYR PO SCH ×3 (08:16→21:34)
[2017-07-04] MEDS: FERROUS SULFATE 325 MG TAB PO SCH ×2 (08:16→21:33)
[2017-07-04] MEDS: FOLIC ACID 1 MG TAB PO SCH (08:16)
[2017-07-04] MEDS: METRONIDAZOLE 0.75% 45 GM CREAM TP SCH (08:19)
--- NOTE | 2017-07-04 16:48 | SOAPPROG ---
SOAP Progress Note Assessment/Plan: Assessment: Per Dr. Fortune's note: 06/29/17 15:00 Pt continues to do poorly with ongoing psychotic sx's and recurrent catatonia. Efforts to manage psychosis with low dose antipsychotic medications were ineffective and increased doses caused recurrence of catatonia. The ongoing severity of her symptom is life-threatening due to refusal to adequately eat or drink causing dehydration and increased CK as well as the persistence of aggressive and self-destructive behaviors based in delusional thoughts. It is my opinion that efforts to manage this patient with medications have been exhausted and further adjustments will not be beneficial and will cause real harm in the form of continued or worsened catatonia. I agree with Dr. Catalan' s recommendation for ECT. I believe ECT will be helpful for her underlying mood and psychotic sx's and rapidly reverse the catatonia. Pt is unwilling to voluntarily pursue ECT, so I will submit a request to the Court for involuntary treatment. I do not believe she represents an emergency at this point in time, but if she continues to refuse to eat or drink and/or her medical condition deteriorates any further, or if her aggressive and/or self-destructive behaviors worsen, I believe she will. I agree with d/c'ing VPA, tapering Risperdal, continuing scheduled lorazepam and ongoing 1:1 observation. 06/30/17 14:22 Catatonia: Continues. Await possible stipulation vs. court hearing. Agree with d/c'ing Risperdal at this time and continuing TID lorazepam to keep the retarded catatonia sx's in check. 07/02/17 11:35 Catatonia: Much improved after one treatment. CCM. Subjective: Pt seen, discussed with staff. Reports feeling "a lot better." States, "This is the first time in a long time that I can't communicate with the voices." She states she hasn't heard any voices since yesterday. She also states she feels calmer and denies any SI. She states she believes she can leave the hospital any time. Notes some initial moderate h/a after ECT yesterday, resolved. No other SE's. Plan: 07/03/17 17:53 1. Patient much improved after ECT x 2. She denies any psychotic sxs and says she no longer hears "voices." She also denies any SI/HI. 2. Patient says she believes she is "ready to go home." MD reminded patient that she will likely need several more ECT treatments. She agrees to d/w number of treatments with Dr. Fortune on Thursday. 3. Some PAN after ECT his AM, but better in afternoon. Ate 100% of lunch. 07/04/17 16:45 1. Patient doesn't want any more ECT treatments. Her is concerned about cognitive SE's of ECT. explained that patient stipulated to ECT and there is a current court order that is effective until August 25, 2017. 2. Patient is not entirely forthcoming about her symptoms. She told certain staff that she is "done with my spiritual quest." However, CC reports that patient said her spiritual quest is "not over yet, but it's getting there." When staff asked for clarification, patient said she is pursuing her spiritual quest, but "only through meditation and prayer." This is exactly what she said last weekend to MD when she started eating again. 3. Patient slept 7-1/2 hrs last night. Subjective: Met with patient, reviewed chart and d/w staff. Patient is not as tired today. She is out of her room most of the day and present in milieu and groups. She allowed her to come for visit today, and has added him and her sister back to her contact list. She had previously excluded them from her treatment. She feels that she's "done with ECT" and wants to discharge home with on Thursday. explained to patient that Dr. Fortune is planning to continue ECT and she is on the schedule for Thursday. Objective: Vital Signs Temp Pulse Resp BP Pulse Ox 36.6 C 77 16 96/52 L 95 07/04/17 07:16 07/04/17 07:16 07/04/17 07:16 07/04/17 07:16 07/04/17 07:16 Laboratory Results 06/26/17 06:10 06/29/17 04:00 07/03/17 07/04/17 07/05/17 05:59 05:59 05:59 Intake Total 1000 1330 1000 Balance 1000 1330 1000 MSE: Affect: Flat Mood: "OK" TP: Linear TC: Denies any SI/HI, no AH/VH, she says the voices "are gone" Insight/Judgment: Poor - Time Spent With Patient Time Spent With Patient: 15" - Pending Discharge Pending Discharge Within 24 Hours: No Pending Discharge Within 48 Hours: No ICD10 Worksheet Patient Problems: Problems Problem Status Onset Schizoaffective disorder, bipolar type Acute Anemia Acute Catatonia Acute Eating disorder Acute
[2017-07-05] MEDS: FOLIC ACID 1 MG TAB PO SCH (08:59)
[2017-07-05] MEDS: FERROUS SULFATE 325 MG TAB PO SCH ×2 (08:59→21:40)
[2017-07-05] MEDS: LORazepam 1 MG/0.5 ML UDSYR PO SCH ×3 (08:59→21:41)
[2017-07-05] MEDS: METRONIDAZOLE 0.75% 45 GM CREAM TP SCH (12:31)
--- NOTE | 2017-07-05 17:55 | SOAPPROG ---
SOAP Progress Note Assessment/Plan: Assessment: Per Dr. Fortune's note: 06/29/17 15:00 Pt continues to do poorly with ongoing psychotic sx's and recurrent catatonia. Efforts to manage psychosis with low dose antipsychotic medications were ineffective and increased doses caused recurrence of catatonia. The ongoing severity of her symptom is life-threatening due to refusal to adequately eat or drink causing dehydration and increased CK as well as the persistence of aggressive and self-destructive behaviors based in delusional thoughts. It is my opinion that efforts to manage this patient with medications have been exhausted and further adjustments will not be beneficial and will cause real harm in the form of continued or worsened catatonia. I agree with Dr. Catalan' s recommendation for ECT. I believe ECT will be helpful for her underlying mood and psychotic sx's and rapidly reverse the catatonia. Pt is unwilling to voluntarily pursue ECT, so I will submit a request to the Court for involuntary treatment. I do not believe she represents an emergency at this point in time, but if she continues to refuse to eat or drink and/or her medical condition deteriorates any further, or if her aggressive and/or self-destructive behaviors worsen, I believe she will. I agree with d/c'ing VPA, tapering Risperdal, continuing scheduled lorazepam and ongoing 1:1 observation. 06/30/17 14:22 Catatonia: Continues. Await possible stipulation vs. court hearing. Agree with d/c'ing Risperdal at this time and continuing TID lorazepam to keep the retarded catatonia sx's in check. 07/02/17 11:35 Catatonia: Much improved after one treatment. CCM. Subjective: Pt seen, discussed with staff. Reports feeling "a lot better." States, "This is the first time in a long time that I can't communicate with the voices." She states she hasn't heard any voices since yesterday. She also states she feels calmer and denies any SI. She states she believes she can leave the hospital any time. Notes some initial moderate h/a after ECT yesterday, resolved. No other SE's. Plan: 07/03/17 17:53 1. Patient much improved after ECT x 2. She denies any psychotic sxs and says she no longer hears "voices." She also denies any SI/HI. 2. Patient says she believes she is "ready to go home." MD reminded patient that she will likely need several more ECT treatments. She agrees to d/w number of treatments with Dr. Fortune on Thursday. 3. Some PAN after ECT his AM, but better in afternoon. Ate 100% of lunch. 07/04/17 16:45 1. Patient doesn't want any more ECT treatments. Her is concerned about cognitive SE's of ECT. MD explained that patient stipulated to ECT and there is a current court order that is effective until August 25, 2017. 2. Patient is not entirely forthcoming about her symptoms. She told certain staff that she is "done with my spiritual quest." However, CC reports that patient said her spiritual quest is "not over yet, but it's getting there." When staff asked for clarification, patient said she is pursuing her spiritual quest, but "only through meditation and prayer." This is exactly what she said last weekend to MD when she started eating again. 3. Patient slept 7-1/2 hrs last night. 07/05/17 17:50 1. Patient doesn't want to have ECT on Thursday, but knows she is on the schedule for 8am. 2. MD spent some time talking to patient and her , Hitesh. He had questions about how long the ECT would last. He mentioned he has a family meeting scheduled at 11:30am on Thursday, but says he wants Latricia to "be there." 3. Patient slept 8 hrs last night and has been eating 100% of meals and drinking plenty of fluids. 4. MD believes patient has extremely limited insight into the severity of her illness and continues to make poor decisions when she tries to limit her treatment which she did with all her medications prior to starting ECT. Subjective: Met with patient and , reviewed chart and d/w staff. Patient has flat affect and does not engage with peers, staff or participate in group or milieu activities. She engages with MD when asked questions, makes appropriate eye contact. MD also observes patient walking up and down hallway with . She denies urges to self-harm and says she is no longer hearing "voices" telling her to harm herself. Objective: Vital Signs Temp Pulse Resp BP Pulse Ox 36.6 C 83 14 101/53 L 95 07/05/17 07:11 07/05/17 07:11 07/05/17 07:11 07/05/17 07:11 07/05/17 07:11 Laboratory Results 06/26/17 06:10 06/29/17 04:00 07/04/17 07/05/17 07/06/17 05:59 05:59 05:59 Intake Total 1330 1650 1000 Balance 1330 1650 1000 MSE: Affect: Flat Mood: "OK" TP: Perseverative about stopping ECT TC: Denies any SI/HI, denies "voices" Insight/Judgment: Poor - Time Spent With Patient Time Spent With Patient: 20" - Pending Discharge Pending Discharge Within 24 Hours: No Pending Discharge Within 48 Hours: No ICD10 Worksheet Patient Problems: Problems Problem Status Onset Schizoaffective disorder, bipolar type Acute Anemia Acute Catatonia Acute Eating disorder Acute
[2017-07-06] MEDS ORDERED: MIDAZOLAM 2 MG/2 ML VIAL ONE (06:33)
[2017-07-06] MEDS ORDERED: ONDANSETRON 4 MG/2 ML VIAL ONE (06:33)
[2017-07-06] MEDS ORDERED: fentaNYL 100 MCG/2 ML INJ ONE (06:33)
[2017-07-06] MEDS ORDERED: GLYCOPYRROLATE 0.2 MG/1 ML VIAL ONE (06:33)
[2017-07-06] MEDS ORDERED: ROCURONIUM 50 MG/5 ML VIAL ONE (06:34)
[2017-07-06] MEDS ORDERED: PROPOFOL 200 MG/20 ML VIAL ONE (06:34)
[2017-07-06] MEDS ORDERED: SUCCINYLCHOLINE CHLORIDE 200 MG/10 ML VIAL ONE (06:34)
[2017-07-06] MEDS ORDERED: ETOMIDATE 20 MG/10 ML VIAL ONE (06:34)
[2017-07-06] MEDS ORDERED: ONDANSETRON DISINTEGRATING 4 MG TAB PO PRN (07:53)
[2017-07-06] MEDS ORDERED: NS 1,000 ML IV PRN (07:53)
[2017-07-06] MEDS ORDERED: CITRIC ACID/SODIUM CITRATE 30 ML UDCUP PO PRN (07:53)
[2017-07-06] MEDS ORDERED: CITRIC ACID/SODIUM CITRATE 30 ML UDCUP ONE (07:54)
[2017-07-06] MEDS ORDERED: ONDANSETRON DISINTEGRATING 4 MG TAB ONE (07:54)
[2017-07-06] MEDS: NS 1,000 ML IV PRN (08:10)
--- NOTE | 2017-07-06 08:21 | PDANEPAE ---
ECT Pre Anesthetic Evaluation Allergies/Adverse Reactions: No Known Allergies Allergy (Unverified 05/20/17 19:41) Patient ID confirmed: Yes H&P reviewed: Yes Pre-anesthetic history reviewed: Yes Heart: regular rate and rhythym, no murmur, rub, or gallop Lungs: no respiratory distress, clear to auscultation Mallampati Score: Class 3 ASA Status: II Medication review: completed Patient interviewed: Yes Patient examined: Yes Anesthetic plan discussed with patient: Yes Anesthetic risks discussed with patient: Yes ECT Pre-Anesthetic History - Height & Weight Height: 167.64 cm Weight: 50.213 kg BMI: 17.88 - Medications In the Past 6 Months the Patient Has Taken: Tranquilizers - Tobacco/Alcohol/Drug Use Smoking Status: Never smoked Hx Drug/Substance Abuse: No Alcohol Use: Yes Type(s) Of Alcohol: wine or beer Alcohol Quantity: 1 Alcohol Frequency: once a month - Prior Surgeries/Hospitalizations Prior Surgeries: Knee surgery twice (once with complete anesthesia and once with local) Prior Medical Hospitalizations: None - Pulmonary History ECT Hx Asthma: No Hx Abnormal Chest X-Ray: No Hx Oxygen in Use at Home: No - Cardiovascular History Hx Hypertension: No Currently Uses Hypertension Medication: No Hx Arrhythmias: Yes Hx Palpitations: Yes Hx Chest Pain: No Hx Coronary Artery / Peripheral Vascular Disease: No Hx Blood Clot: No Cardiovascular History Comment: Prolapsed mitral valve, congenital, 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21 - Neurologic History Hx Cerebrovascular Accident: No Hx CT Scan Or MRI Of The Brain: Yes Hx Epilepsy, Convulsions, Seizures, Or Blackouts: No Hx Frequent Or Severe Headaches: No Hx Numbness: No Hx Neurologic Disorder: No - Dental History Current Dental Issues: None - Endocrine History Hx Diabetes: No Current Daily Insulin Injections: No Hx Thyroid Problems: No - Renal/Urologic History Hx Renal Disorders: No Hx Urinary Tract Problems: No - Liver History Hx Hepatic Disorders: No - Cancer History Hx Cancer: No Cancer History Comment: abnormal pap smear - Hematology History Hx Unexplained Bleeding Of Any Type: No Hx Ease Of Bruising: No Hx Anemia: Yes Hematology History Comment: recently taking iron - Gastrointestinal History Hx Gastroesophogeal Reflux Disease: No Hx Ulcers: No Hx Hiatal Hernia: No Hx Difficulty Swallowing: No - Musculoskeletal Hisory Hx Chronic Pain: No Hx Arthritis: No - Opthalmic History Hx Glaucoma: No Visual Assistive Devices: Glasses Hx Opthalmic Disorders: No - Other Health History Physical Disabililty: No Recent Cough, Cold, or Fever: No Significant Weight Loss In The Last 4 Months: Yes Possible the Patient Might be : No Other Health History Comment: 15 lbs
--- NOTE | 2017-07-06 08:22 | PDECTPN ---
ECT Progress Note Patient Problems: Problems Problem Status Onset Code Schizoaffective disorder, bipolar type Acute F25.0 Anemia Acute D64.9 Catatonia Acute F06.1 Eating disorder Acute F50.9 Date: 07/06/17 ECT provider: Galindo Fortune Anesthesia: Nilo Fonseca Stimulus dose (%): 40 Pulse width: 0.5 ECT EMG (sec): 23 ECT EEG (sec): 34 ECT treatment type: bilateral QIDS-SR Total Score: 8 QIDS-SR Question #12 Score: 0 MMSE Total Score (Max = 21): 21 Next ECT date: 07/08/17 Next ECT time: 07:30 O/P psychiatrist follow up: direct communication Medication review: completed Current treatment plan: acute phase Treatment plan frequency: 3 times per week ECT narrative: Pt presents for continued acute course ECT. Calm and cooperative, though anxious about need to return to work, home. I discussed with her the course of treatment and emphasized that a minimum number of treatments would be 6. She remembers hearing the number three and I told her that was not a standard recommendation for us. I advised her that we would need to treat all three days this week and could consider d/c if family is supportive. I voiced my preference that she stay in the hospital through Thursday for treatment but stated that we would have a family meeting tomorrow to discuss this. I reframed her frustration to note that we are in a much better place in re: to her clinical state. She acknowledges this. She underwent initial bilateral ECT treatment without complication.
[2017-07-06] MEDS ORDERED: KETOROLAC 30 MG/1 ML SDV ONE (08:25)
[2017-07-06] MEDS ORDERED: ACETAMINOPHEN 325 MG TAB ONE (08:58)
[2017-07-06] MEDS: LORazepam 1 MG/0.5 ML UDSYR PO SCH ×3 (11:00→21:46)
[2017-07-06] MEDS: FERROUS SULFATE 325 MG TAB PO SCH ×2 (11:00→21:51)
[2017-07-06] MEDS: FOLIC ACID 1 MG TAB PO SCH (11:00)
[2017-07-06] MEDS: METRONIDAZOLE 0.75% 45 GM CREAM TP SCH (12:53)
[2017-07-07] MEDS: LORazepam 1 MG/0.5 ML UDSYR PO SCH ×3 (08:51→21:15)
[2017-07-07] MEDS: FOLIC ACID 1 MG TAB PO SCH (14:39)
[2017-07-07] MEDS: FERROUS SULFATE 325 MG TAB PO SCH ×2 (14:39→21:15)
[2017-07-07] MEDS: METRONIDAZOLE 0.75% 45 GM CREAM TP SCH (14:40)
--- NOTE | 2017-07-07 16:49 | SOAPPROG ---
SOAP Progress Note Assessment/Plan: Assessment: Plan: 06/29/17 15:00 Pt continues to do poorly with ongoing psychotic sx's and recurrent catatonia. Efforts to manage psychosis with low dose antipsychotic medications were ineffective and increased doses caused recurrence of catatonia. The ongoing severity of her symptom is life-threatening due to refusal to adequately eat or drink causing dehydration and increased CK as well as the persistence of aggressive and self-destructive behaviors based in delusional thoughts. It is my opinion that efforts to manage this patient with medications have been exhausted and further adjustments will not be beneficial and will cause real harm in the form of continued or worsened catatonia. I agree with Dr. Catalan' s recommendation for ECT. I believe ECT will be helpful for her underlying mood and psychotic sx's and rapidly reverse the catatonia. Pt is unwilling to voluntarily pursue ECT, so I will submit a request to the Court for involuntary treatment. I do not believe she represents an emergency at this point in time, but if she continues to refuse to eat or drink and/or her medical condition deteriorates any further, or if her aggressive and/or self-destructive behaviors worsen, I believe she will. I agree with d/c'ing VPA, tapering Risperdal, continuing scheduled lorazepam and ongoing 1:1 observation. 06/30/17 14:22 Catatonia: Continues. Await possible stipulation vs. court hearing. Agree with d/c'ing Risperdal at this time and continuing TID lorazepam to keep the retarded catatonia sx's in check. 07/02/17 11:35 Catatonia: Much improved after one treatment. [facility]. 07/07/17 16:48 Catatonia: Continues to do well. Agreeable to current treatment plan. [facility]. Subjective: Pt seen, discussed with staff. Remains generally calm and compliant with treatments. She participated in family meeting with myself, CC and her . She was appropriate and agreeable to plan to stay in hospital until Thursday and then transition to [facility]. Objective: Vital Signs Temp Pulse Resp BP Pulse Ox 36.5 C 73 14 90/54 L 95 07/07/17 06:55 07/07/17 06:55 07/07/17 06:55 07/07/17 06:55 05/01/18 06:55 Laboratory Results 06/26/17 06:10 06/29/17 04:00 07/06/17 07/07/17 07/08/17 05:59 05:59 05:59 Intake Total 1999 2880 Balance 1999 2880 - Time Spent With Patient Time Spent With Patient: 35" ICD10 Worksheet Patient Problems: Problems Problem Status Onset Schizoaffective disorder, bipolar type Acute Anemia Acute Catatonia Acute Eating disorder Acute
--- NOTE | 2017-07-07 17:31 | SOAPPROG ---
SOAP Progress Note Assessment/Plan: Assessment: Facial rash, likely rosacea. No other features to suggest SLE. * Improving with topical metronidazole, after 1 week of treated. If inadequate response in 2 - 4 weeks, consider addition of oral doxycycline. 07/07/17 17:30 Subjective: Follow-up on rosacea. She is tolerating topical metronidazole well with no facial discomfort. Objective: Vital Signs Temp Pulse Resp BP Pulse Ox 36.5 C 73 14 90/54 L 95 07/07/17 06:55 07/07/17 06:55 07/07/17 06:55 07/07/17 06:55 07/07/17 06:55 Laboratory Results 06/26/17 06:10 06/29/17 04:00 07/06/17 07/07/17 07/08/17 05:59 05:59 05:59 Intake Total 1999 2880 Balance 1999 2880 Physical Exam - Physical Exam Skin: other (Facial erythema is still present but much improved. No longer has raised margins or irregular texture. Has comedone on left chin.) ICD10 Worksheet Patient Problems: Problems Problem Status Onset Schizoaffective disorder, bipolar type Acute Anemia Acute Catatonia Acute Eating disorder Acute
[2017-07-08] MEDS ORDERED: fentaNYL 100 MCG/2 ML INJ ONE (05:59)
[2017-07-08] MEDS ORDERED: GLYCOPYRROLATE 0.2 MG/1 ML VIAL ONE (05:59)
[2017-07-08] MEDS ORDERED: KETOROLAC 30 MG/1 ML SDV ONE (05:59)
[2017-07-08] MEDS ORDERED: MIDAZOLAM 2 MG/2 ML VIAL ONE (05:59)
[2017-07-08] MEDS ORDERED: ONDANSETRON 4 MG/2 ML VIAL ONE (05:59)
[2017-07-08] MEDS ORDERED: ONDANSETRON DISINTEGRATING 4 MG TAB PO PRN (06:00)
[2017-07-08] MEDS ORDERED: ROCURONIUM 50 MG/5 ML VIAL ONE (06:00)
[2017-07-08] MEDS ORDERED: PROPOFOL 200 MG/20 ML VIAL ONE (06:00)
[2017-07-08] MEDS ORDERED: NS 1,000 ML IV PRN (06:00)
[2017-07-08] MEDS ORDERED: CITRIC ACID/SODIUM CITRATE 30 ML UDCUP PO PRN (06:00)
[2017-07-08] MEDS ORDERED: SUCCINYLCHOLINE CHLORIDE 200 MG/10 ML VIAL ONE (06:00)
[2017-07-08] MEDS ORDERED: ETOMIDATE 20 MG/10 ML VIAL ONE (06:00)
[2017-07-08] MEDS ORDERED: CITRIC ACID/SODIUM CITRATE 30 ML UDCUP ONE (06:54)
[2017-07-08] MEDS ORDERED: ONDANSETRON DISINTEGRATING 4 MG TAB ONE (06:54)
[2017-07-08] MEDS: NS 1,000 ML IV PRN (07:12)
--- NOTE | 2017-07-08 07:44 | PDANEPAE ---
ECT Pre Anesthetic Evaluation Allergies/Adverse Reactions: No Known Allergies Allergy (Unverified 05/20/17 19:41) Patient ID confirmed: Yes H&P reviewed: Yes Pre-anesthetic history reviewed: Yes Heart: regular rate and rhythym, no murmur, rub, or gallop Lungs: no respiratory distress, clear to auscultation Mallampati Score: Class 3 ASA Status: III Medication review: completed Patient interviewed: Yes Patient examined: Yes Anesthetic plan discussed with patient: Yes Anesthetic risks discussed with patient: Yes ECT Pre-Anesthetic History - Height & Weight Height: 167.64 cm Weight: 51.347 kg BMI: 18.28 - Medications In the Past 6 Months the Patient Has Taken: Tranquilizers - Tobacco/Alcohol/Drug Use Smoking Status: Never smoked Hx Drug/Substance Abuse: No Alcohol Use: Yes Type(s) Of Alcohol: wine or beer Alcohol Quantity: 1 Alcohol Frequency: once a month - Prior Surgeries/Hospitalizations Prior Surgeries: Knee surgery twice (once with complete anesthesia and once with local) Prior Medical Hospitalizations: None - Pulmonary History ECT Hx Asthma: No Hx Abnormal Chest X-Ray: No Hx Oxygen in Use at Home: No - Cardiovascular History Hx Hypertension: No Currently Uses Hypertension Medication: No Hx Arrhythmias: Yes Hx Palpitations: Yes Hx Chest Pain: No Hx Coronary Artery / Peripheral Vascular Disease: No Hx Blood Clot: No Cardiovascular History Comment: Prolapsed mitral valve, congenital, 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21 - Neurologic History Hx Cerebrovascular Accident: No Hx CT Scan Or MRI Of The Brain: Yes Hx Epilepsy, Convulsions, Seizures, Or Blackouts: No Hx Frequent Or Severe Headaches: No Hx Numbness: No Hx Neurologic Disorder: No - Dental History Current Dental Issues: None - Endocrine History Hx Diabetes: No Current Daily Insulin Injections: No Hx Thyroid Problems: No - Renal/Urologic History Hx Renal Disorders: No Hx Urinary Tract Problems: No - Liver History Hx Hepatic Disorders: No - Cancer History Hx Cancer: No Cancer History Comment: abnormal pap smear - Hematology History Hx Unexplained Bleeding Of Any Type: No Hx Ease Of Bruising: No Hx Anemia: Yes Hematology History Comment: recently taking iron - Gastrointestinal History Hx Gastroesophogeal Reflux Disease: No Hx Ulcers: No Hx Hiatal Hernia: No Hx Difficulty Swallowing: No - Musculoskeletal Hisory Hx Chronic Pain: No Hx Arthritis: No - Opthalmic History Hx Glaucoma: No Visual Assistive Devices: Glasses Hx Opthalmic Disorders: No - Other Health History Physical Disabililty: No Recent Cough, Cold, or Fever: No Significant Weight Loss In The Last 4 Months: Yes Possible the Patient Might be : No Other Health History Comment: 15 lbs
--- NOTE | 2017-07-08 07:48 | PDECTPN ---
ECT Progress Note Patient Problems: Problems Problem Status Onset Code Schizoaffective disorder, bipolar type Acute F25.0 Anemia Acute D64.9 Catatonia Acute F06.1 Eating disorder Acute F50.9 Date: 07/08/17 ECT provider: Galindo Fortune Anesthesia: Nilo Fonseca Stimulus dose (%): 45 Pulse width: 0.5 ECT EMG (sec): 32 ECT EEG (sec): 42 ECT treatment type: bilateral QIDS-SR Total Score: 12 QIDS-SR Question #12 Score: 0 MMSE Total Score (Max = 21): 21 Next ECT date: 07/10/17 Next ECT time: 07:30 O/P psychiatrist follow up: direct communication Medication review: completed Current treatment plan: acute phase Treatment plan frequency: 3 times per week ECT narrative: Pt presents for continued acute course ECT. Continues to do well. Calm and cooperative this morning. Upbeat and hopeful re: transition to [facility] and ultimately home. She is eating, drinking and sleeping well. Compliant with meds. Agreeable to continuing current plan. She underwent bilateral ECT treatment without complication.
[2017-07-08] MEDS: FERROUS SULFATE 325 MG TAB PO SCH ×2 (08:16→20:38)
[2017-07-08] MEDS: METRONIDAZOLE 0.75% 45 GM CREAM TP SCH (08:17)
[2017-07-08] MEDS: FOLIC ACID 1 MG TAB PO SCH (08:17)
[2017-07-08] MEDS: LORazepam 1 MG/0.5 ML UDSYR PO SCH ×3 (10:20→20:37)
[2017-07-09] MEDS: LORazepam 1 MG/0.5 ML UDSYR PO SCH ×3 (08:58→19:48)
[2017-07-09] MEDS: FERROUS SULFATE 325 MG TAB PO SCH ×2 (09:07→19:49)
[2017-07-09] MEDS: METRONIDAZOLE 0.75% 45 GM CREAM TP SCH (09:07)
[2017-07-09] MEDS: FOLIC ACID 1 MG TAB PO SCH (09:07)
--- NOTE | 2017-07-09 16:20 | SOAPPROG ---
SOAP Progress Note Assessment/Plan: Assessment: Plan: 06/29/17 15:00 Pt continues to do poorly with ongoing psychotic sx's and recurrent catatonia. Efforts to manage psychosis with low dose antipsychotic medications were ineffective and increased doses caused recurrence of catatonia. The ongoing severity of her symptom is life-threatening due to refusal to adequately eat or drink causing dehydration and increased CK as well as the persistence of aggressive and self-destructive behaviors based in delusional thoughts. It is my opinion that efforts to manage this patient with medications have been exhausted and further adjustments will not be beneficial and will cause real harm in the form of continued or worsened catatonia. I agree with Dr. Catalan' s recommendation for ECT. I believe ECT will be helpful for her underlying mood and psychotic sx's and rapidly reverse the catatonia. Pt is unwilling to voluntarily pursue ECT, so I will submit a request to the Court for involuntary treatment. I do not believe she represents an emergency at this point in time, but if she continues to refuse to eat or drink and/or her medical condition deteriorates any further, or if her aggressive and/or self-destructive behaviors worsen, I believe she will. I agree with d/c'ing VPA, tapering Risperdal, continuing scheduled lorazepam and ongoing 1:1 observation. 06/30/17 14:22 Catatonia: Continues. Await possible stipulation vs. court hearing. Agree with d/c'ing Risperdal at this time and continuing TID lorazepam to keep the retarded catatonia sx's in check. 07/02/17 11:35 Catatonia: Much improved after one treatment. [facility]. 07/07/17 16:48 Catatonia: Continues to do well. Agreeable to current treatment plan. [facility]. 07/09/17 16:20 Mood: Continued improvement. Catatonia and psychosis are nearly resolved. Will begin treatment with Lamictal for mood stabilization tomorrow after ECT. Will continue acute course ECT through at least six treatments. Transfer to [facility] when they will take her. Subjective: Pt seen, discussed with staff. Reports feeling "just fine" today. Upbeat and friendly. Visited with [facility] staff this morning. They want her initiated on a mood-stabilizer prior to transfer. I discussed options for this with patient and she is agreeable to a trial of Lamictal after review of the risks, benefits and alternatives. She remains cooperative and appropriate in the milieu. Denies hearing voices with me, though is reportedly suspicious that she continues to hallucinate. No evidence of RIS. Compliant with meds and therapies. Objective: Vital Signs Temp Pulse Resp BP Pulse Ox 36.4 C 66 14 93/54 L 97 07/09/17 07:06 07/09/17 07:06 07/09/17 07:06 07/09/17 07:06 07/09/17 07:06 Laboratory Results 06/26/17 06:10 06/29/17 04:00 07/08/17 07/09/17 07/10/17 05:59 05:59 05:59 Intake Total 860 1999 Balance 860 1999 MSE: calm, coop, appropriately interactive. Affect is bright, stable, approp. Mood is "good." TP linear. TC reveals no mention of paranoid or hyperreligious thoughts. She denies AH's. She denies SI/HI/. - Time Spent With Patient Time Spent With Patient: 15" ICD10 Worksheet Patient Problems: Problems Problem Status Onset Schizoaffective disorder, bipolar type Acute Anemia Acute Catatonia Acute Eating disorder Acute
[2017-07-10] MEDS ORDERED: ONDANSETRON DISINTEGRATING 4 MG TAB PO PRN (04:00)
[2017-07-10] MEDS ORDERED: CITRIC ACID/SODIUM CITRATE 30 ML UDCUP PO PRN (04:00)
[2017-07-10] MEDS ORDERED: NS 1,000 ML IV PRN (04:00)
[2017-07-10] MEDS ORDERED: GLYCOPYRROLATE 0.2 MG/1 ML VIAL ONE (05:40)
[2017-07-10] MEDS ORDERED: KETOROLAC 30 MG/1 ML SDV ONE (05:40)
[2017-07-10] MEDS ORDERED: fentaNYL 100 MCG/2 ML INJ ONE (05:40)
[2017-07-10] MEDS ORDERED: MIDAZOLAM 2 MG/2 ML VIAL ONE (05:40)
[2017-07-10] MEDS ORDERED: ONDANSETRON 4 MG/2 ML VIAL ONE (05:40)
[2017-07-10] MEDS ORDERED: ETOMIDATE 20 MG/10 ML VIAL ONE (05:41)
[2017-07-10] MEDS ORDERED: SUCCINYLCHOLINE CHLORIDE 200 MG/10 ML VIAL ONE (05:41)
[2017-07-10] MEDS ORDERED: PROPOFOL 200 MG/20 ML VIAL ONE (05:41)
[2017-07-10] MEDS ORDERED: ROCURONIUM 50 MG/5 ML VIAL ONE (05:41)
[2017-07-10] MEDS ORDERED: CITRIC ACID/SODIUM CITRATE 30 ML UDCUP ONE (05:59)
[2017-07-10] MEDS ORDERED: ONDANSETRON DISINTEGRATING 4 MG TAB ONE (05:59)
--- NOTE | 2017-07-10 06:38 | PDANEPAE ---
ECT Pre Anesthetic Evaluation Allergies/Adverse Reactions: No Known Allergies Allergy (Unverified 05/20/17 19:41) Patient ID confirmed: Yes H&P reviewed: Yes Pre-anesthetic history reviewed: Yes Heart: regular rate and rhythym, no murmur, rub, or gallop Lungs: no respiratory distress, clear to auscultation Mallampati Score: Class 3 ASA Status: II Medication review: completed Patient interviewed: Yes Patient examined: Yes Anesthetic plan discussed with patient: Yes Anesthetic risks discussed with patient: Yes ECT Pre-Anesthetic History - Height & Weight Height: 167.64 cm Weight: 52.435 kg BMI: 18.67 - Medications In the Past 6 Months the Patient Has Taken: Tranquilizers - Tobacco/Alcohol/Drug Use Smoking Status: Never smoked Hx Drug/Substance Abuse: No Alcohol Use: Yes Type(s) Of Alcohol: wine or beer Alcohol Quantity: 1 Alcohol Frequency: once a month - Prior Surgeries/Hospitalizations Prior Surgeries: Knee surgery twice (once with complete anesthesia and once with local) Prior Medical Hospitalizations: None - Pulmonary History ECT Hx Asthma: No Hx Abnormal Chest X-Ray: No Hx Oxygen in Use at Home: No - Cardiovascular History Hx Hypertension: No Currently Uses Hypertension Medication: No Hx Arrhythmias: Yes Hx Palpitations: Yes Hx Chest Pain: No Hx Coronary Artery / Peripheral Vascular Disease: No Hx Blood Clot: No Cardiovascular History Comment: Prolapsed mitral valve, congenital, 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21 - Neurologic History Hx Cerebrovascular Accident: No Hx CT Scan Or MRI Of The Brain: Yes Hx Epilepsy, Convulsions, Seizures, Or Blackouts: No Hx Frequent Or Severe Headaches: No Hx Numbness: No Hx Neurologic Disorder: No - Dental History Current Dental Issues: None - Endocrine History Hx Diabetes: No Current Daily Insulin Injections: No Hx Thyroid Problems: No - Renal/Urologic History Hx Renal Disorders: No Hx Urinary Tract Problems: No - Liver History Hx Hepatic Disorders: No - Cancer History Hx Cancer: No Cancer History Comment: abnormal pap smear - Hematology History Hx Unexplained Bleeding Of Any Type: No Hx Ease Of Bruising: No Hx Anemia: Yes Hematology History Comment: recently taking iron - Gastrointestinal History Hx Gastroesophogeal Reflux Disease: No Hx Ulcers: No Hx Hiatal Hernia: No Hx Difficulty Swallowing: No - Musculoskeletal Hisory Hx Chronic Pain: No Hx Arthritis: No - Opthalmic History Hx Glaucoma: No Visual Assistive Devices: Glasses Hx Opthalmic Disorders: No - Other Health History Physical Disabililty: No Recent Cough, Cold, or Fever: No Significant Weight Loss In The Last 4 Months: Yes Possible the Patient Might be : No Other Health History Comment: 15 lbs
--- NOTE | 2017-07-10 06:44 | PDECTPN ---
ECT Progress Note Patient Problems: Problems Problem Status Onset Code Schizoaffective disorder, bipolar type Acute F25.0 Anemia Acute D64.9 Catatonia Acute F06.1 Eating disorder Acute F50.9 Date: 07/10/17 ECT provider: Galindo Fortune Anesthesia: Nilo Fonseca Stimulus dose (%): 50 Pulse width: 0.5 ECT EMG (sec): 30 ECT EEG (sec): 40 QIDS-SR Total Score: 12 QIDS-SR Question #12 Score: 0 MMSE Total Score (Max = 21): 21 O/P psychiatrist follow up: direct communication Current treatment plan: acute phase Treatment plan frequency: 3 times per week ECT narrative: Pt presents for continued acute course ECT. Continues to experience improvement in mood, anxiety and psychosis. Insight remains lacking and she is still preoccupied with hoahaoism thoughts, but is more communicative and much less influenced by internal processes. Eating and sleeping well with no behavioral issues. SI absent today. She underwent bilateral ECT treatment without complication.
[2017-07-10] MEDS: LORazepam 1 MG/0.5 ML UDSYR PO SCH ×3 (11:41→20:47)
[2017-07-10] MEDS: FERROUS SULFATE 325 MG TAB PO SCH ×3 (11:41→20:48)
[2017-07-10] MEDS: FOLIC ACID 1 MG TAB PO SCH (11:41)
[2017-07-10] MEDS: lamoTRIgine 25 MG TAB PO SCH (20:46)
[2017-07-11] MEDS: METRONIDAZOLE 0.75% 45 GM CREAM TP SCH ×2 (03:27→08:27)
[2017-07-11] MEDS: LORazepam 1 MG/0.5 ML UDSYR PO SCH ×3 (08:19→20:45)
[2017-07-11] MEDS: FOLIC ACID 1 MG TAB PO SCH (08:27)
[2017-07-11] MEDS: FERROUS SULFATE 325 MG TAB PO SCH ×2 (08:27→20:45)
--- NOTE | 2017-07-11 15:29 | SOAPPROG ---
SOAP Progress Note Assessment/Plan: Assessment: Per Dr. Fortune's notes: 07/07/17 16:48 Catatonia: Continues to do well. Agreeable to current treatment plan. [facility]. 07/09/17 16:20 Mood: Continued improvement. Catatonia and psychosis are nearly resolved. Will begin treatment with Lamictal for mood stabilization tomorrow after ECT. Will continue acute course ECT through at least six treatments. Transfer to [facility] when they will take her. Subjective: Pt seen, discussed with staff. Reports feeling "just fine" today. Upbeat and friendly. Visited with [facility] staff this morning. They want her initiated on a mood-stabilizer prior to transfer. I discussed options for this with patient and she is agreeable to a trial of Lamictal after review of the risks, benefits and alternatives. She remains cooperative and appropriate in the milieu. Denies hearing voices with me, though is reportedly suspicious that she continues to hallucinate. No evidence of RIS. Compliant with meds and therapies. Plan: 07/11/17 15:05 1. Patient started on Lamictal. She denies any SE's or physical complaints. 2. Patient had pleasant visit with and children today. She interacted appropriately with kids and showed mood congruent affect. 3. MD entered order for patient to have off ground privileges with staff supervision and at staff discretion based on JOSE MANUEL'sEmperatriz's, report that patient and Dr. Fortune had discussed on and issue was brought up in tx team meeting on Thursday and staff agreed with MD's decision to give this privilege to patient to go off grounds with staff for < 15 min when possible. 4. Next ECT on Thursday. Subjective: Met with patient, reviewed chart and d/w staff. Patient started on Lamictal. She denies any SE's or physical complaints.Patient had pleasant visit with and children today. She interacted appropriately with kids and showed mood congruent affect. MD entered order for patient to have off ground privileges with staff supervision and at staff discretion based on JOSE MANUEL'sEmperatriz's , report that patient and Dr. Fortune had discussed on and issue was brought up in tx team meeting on Thursday and staff agreed with MD's decision to give this privilege to patient to go off grounds with staff for < 15 min when possible. Patient denies any SI/HI. Objective: Vital Signs Temp Pulse Resp BP Pulse Ox 36.6 C 69 14 97/56 L 94 07/11/17 06:44 07/11/17 06:44 07/11/17 06:44 07/11/17 06:44 07/11/17 06:44 Laboratory Results 06/26/17 06:10 06/29/17 04:00 07/10/17 07/11/17 07/12/17 05:59 05:59 05:59 Intake Total 600 2600 1100 Balance 600 2600 1100 MSE: Affect: Euthymic, smiling, pleasant Mood: "Good" TP: Linear, goal- directed TC: Denies any SI/HI, denies any AH/VH, no evidence of ROM Insight/ Judgment: Improving - Time Spent With Patient Time Spent With Patient: 15" - Pending Discharge Pending Discharge Within 24 Hours: No Pending Discharge Within 48 Hours: No ICD10 Worksheet Patient Problems: Problems Problem Status Onset Schizoaffective disorder, bipolar type Acute Anemia Acute Catatonia Acute Eating disorder Acute
[2017-07-11] MEDS: lamoTRIgine 25 MG TAB PO SCH (20:45)
[2017-07-12] MEDS: FERROUS SULFATE 325 MG TAB PO SCH ×2 (08:22→19:04)
[2017-07-12] MEDS: FOLIC ACID 1 MG TAB PO SCH (08:22)
[2017-07-12] MEDS: LORazepam 1 MG/0.5 ML UDSYR PO SCH ×3 (08:28→18:36)
[2017-07-12] MEDS: METRONIDAZOLE 0.75% 45 GM CREAM TP SCH (08:44)
--- NOTE | 2017-07-12 13:41 | SOAPPROG ---
SOAP Progress Note Assessment/Plan: Assessment: Per Dr. Fortune's notes: 07/07/17 16:48 Catatonia: Continues to do well. Agreeable to current treatment plan. [facility]. 07/09/17 16:20 Mood: Continued improvement. Catatonia and psychosis are nearly resolved. Will begin treatment with Lamictal for mood stabilization tomorrow after ECT. Will continue acute course ECT through at least six treatments. Transfer to [facility] when they will take her. Subjective: Pt seen, discussed with staff. Reports feeling "just fine" today. Upbeat and friendly. Visited with [facility] staff this morning. They want her initiated on a mood-stabilizer prior to transfer. I discussed options for this with patient and she is agreeable to a trial of Lamictal after review of the risks, benefits and alternatives. She remains cooperative and appropriate in the milieu. Denies hearing voices with me, though is reportedly suspicious that she continues to hallucinate. No evidence of RIS. Compliant with meds and therapies. Plan: 07/11/17 15:05 1. Patient started on Lamictal. She denies any SE's or physical complaints. 2. Patient had pleasant visit with and children today. She interacted appropriately with kids and showed mood congruent affect. 3. MD entered order for patient to have off ground privileges with staff supervision and at staff discretion based on RN's, Emperatriz's, report that patient and Dr. Fortune had discussed on and issue was brought up in tx team meeting on Thursday and staff agreed with MD's decision to give this privilege to patient to go off grounds with staff for < 15 min when possible. 4. Next ECT on Thursday. 07/12/17 13:38 1. Patient is calm, pleasant and cooperative. 2. She interacted appropriately with and children again on unit during their visit. 3. Patient went off grounds with staff last evening, and was appropriate. 4. ECT on Thursday. Subjective: Met with patient, reviewed chart and d/w staff. Patient was "so happy" to go off grounds with staff last night. She had another "good" visit with and children on unit today. She is trying to "do everything I need to do" in order to be discharged. She is very eager to "leave the hospital." She denies any SI/HI, she denies hallucinations and paranoia. Objective: Vital Signs Temp Pulse Resp BP Pulse Ox 36.6 C 63 15 101/59 L 95 07/12/17 06:48 07/12/17 06:48 07/12/17 06:48 07/12/17 06:48 07/12/17 06:48 Laboratory Results 06/26/17 06:10 06/29/17 04:00 07/11/17 07/12/17 07/13/17 05:59 05:59 05:59 Intake Total 2600 1600 600 Balance 2600 1600 600 MSE: Affect: Pleasant Mood: "Good" TP: Goal-directed TC: No SI/HI, no AH/VH Insight/Judgment: Improved - Time Spent With Patient Time Spent With Patient: 15" - Pending Discharge Pending Discharge Within 24 Hours: No Pending Discharge Within 48 Hours: No ICD10 Worksheet Patient Problems: Problems Problem Status Onset Schizoaffective disorder, bipolar type Acute Anemia Acute Catatonia Acute Eating disorder Acute
[2017-07-12] MEDS: lamoTRIgine 25 MG TAB PO SCH (18:36)
[2017-07-12] MEDS ORDERED: LORazepam 0.5 MG TAB PO PRN (21:55)
[2017-07-13] MEDS ORDERED: NS 1,000 ML IV PRN (04:30)
[2017-07-13] MEDS ORDERED: ONDANSETRON DISINTEGRATING 4 MG TAB PO PRN (04:30)
[2017-07-13] MEDS ORDERED: CITRIC ACID/SODIUM CITRATE 30 ML UDCUP PO PRN (04:30)
[2017-07-13] MEDS ORDERED: GLYCOPYRROLATE 0.2 MG/1 ML VIAL ONE (06:33)
[2017-07-13] MEDS ORDERED: MIDAZOLAM 2 MG/2 ML VIAL ONE (06:33)
[2017-07-13] MEDS ORDERED: ONDANSETRON 4 MG/2 ML VIAL ONE (06:33)
[2017-07-13] MEDS ORDERED: fentaNYL 100 MCG/2 ML INJ ONE (06:33)
[2017-07-13] MEDS ORDERED: ETOMIDATE 20 MG/10 ML VIAL ONE (06:33)
[2017-07-13] MEDS ORDERED: KETOROLAC 30 MG/1 ML SDV ONE (06:33)
[2017-07-13] MEDS ORDERED: PROPOFOL 200 MG/20 ML VIAL ONE (06:33)
[2017-07-13] MEDS ORDERED: ROCURONIUM 50 MG/5 ML VIAL ONE (06:34)
[2017-07-13] MEDS ORDERED: SUCCINYLCHOLINE CHLORIDE 200 MG/10 ML VIAL ONE (06:34)
[2017-07-13] MEDS ORDERED: CITRIC ACID/SODIUM CITRATE 30 ML UDCUP ONE (06:58)
[2017-07-13] MEDS ORDERED: ONDANSETRON DISINTEGRATING 4 MG TAB ONE (06:58)
[2017-07-13] MEDS: FOLIC ACID 1 MG TAB PO SCH (07:53)
[2017-07-13] MEDS: FERROUS SULFATE 325 MG TAB PO SCH (07:53)
[2017-07-13] MEDS: METRONIDAZOLE 0.75% 45 GM CREAM TP SCH (07:54)
--- NOTE | 2017-07-13 08:34 | PDANEPAE ---
ECT Pre Anesthetic Evaluation Allergies/Adverse Reactions: No Known Allergies Allergy (Unverified 05/20/17 19:41) Patient ID confirmed: Yes H&P reviewed: Yes Pre-anesthetic history reviewed: Yes Heart: regular rate and rhythym, no murmur, rub, or gallop Lungs: no respiratory distress, clear to auscultation Mallampati Score: Class 3 ASA Status: II Medication review: completed Patient interviewed: Yes Patient examined: Yes Anesthetic plan discussed with patient: Yes Anesthetic risks discussed with patient: Yes ECT Pre-Anesthetic History - Height & Weight Height: 167.64 cm Weight: 52.072 kg BMI: 18.54 - Medications In the Past 6 Months the Patient Has Taken: Tranquilizers - Tobacco/Alcohol/Drug Use Smoking Status: Never smoked Hx Drug/Substance Abuse: No Alcohol Use: Yes Type(s) Of Alcohol: wine or beer Alcohol Quantity: 1 Alcohol Frequency: once a month - Prior Surgeries/Hospitalizations Prior Surgeries: Knee surgery twice (once with complete anesthesia and once with local) Prior Medical Hospitalizations: None - Pulmonary History ECT Hx Asthma: No Hx Abnormal Chest X-Ray: No Hx Oxygen in Use at Home: No - Cardiovascular History Hx Hypertension: No Currently Uses Hypertension Medication: No Hx Arrhythmias: Yes Hx Palpitations: Yes Hx Chest Pain: No Hx Coronary Artery / Peripheral Vascular Disease: No Hx Blood Clot: No Cardiovascular History Comment: Prolapsed mitral valve, congenital, 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21 - Neurologic History Hx Cerebrovascular Accident: No Hx CT Scan Or MRI Of The Brain: Yes Hx Epilepsy, Convulsions, Seizures, Or Blackouts: No Hx Frequent Or Severe Headaches: No Hx Numbness: No Hx Neurologic Disorder: No - Dental History Current Dental Issues: None - Endocrine History Hx Diabetes: No Current Daily Insulin Injections: No Hx Thyroid Problems: No - Renal/Urologic History Hx Renal Disorders: No Hx Urinary Tract Problems: No - Liver History Hx Hepatic Disorders: No - Cancer History Hx Cancer: No Cancer History Comment: abnormal pap smear - Hematology History Hx Unexplained Bleeding Of Any Type: No Hx Ease Of Bruising: No Hx Anemia: Yes Hematology History Comment: recently taking iron - Gastrointestinal History Hx Gastroesophogeal Reflux Disease: No Hx Ulcers: No Hx Hiatal Hernia: No Hx Difficulty Swallowing: No - Musculoskeletal Hisory Hx Chronic Pain: No Hx Arthritis: No - Opthalmic History Hx Glaucoma: No Visual Assistive Devices: Glasses Hx Opthalmic Disorders: No - Other Health History Physical Disabililty: No Recent Cough, Cold, or Fever: No Significant Weight Loss In The Last 4 Months: Yes Possible the Patient Might be : No Other Health History Comment: 15 lbs
--- NOTE | 2017-07-13 08:37 | PDECTPN ---
ECT Progress Note Patient Problems: Problems Problem Status Onset Code Schizoaffective disorder, bipolar type Acute F25.0 Anemia Acute D64.9 Catatonia Acute F06.1 Eating disorder Acute F50.9 Date: 07/13/17 ECT provider: Galindo Fortune Anesthesia: Nilo Fonseca Stimulus dose (%): 55 Pulse width: 0.5 ECT EMG (sec): 29 ECT EEG (sec): 34 ECT treatment type: bilateral QIDS-SR Total Score: 7 QIDS-SR Question #12 Score: 0 MMSE Total Score (Max = 21): 21 Next ECT date: 07/13/17 (Open) O/P psychiatrist follow up: direct communication Medication review: completed Current treatment plan: acute phase Treatment plan frequency: 3 times per week ECT narrative: Pt presents for continued acute course ECT. Doing well on the unit. Mood remains good with much improved psychosis. She reports no recent SI. Family remains concerned re: continued voodoo thoughts and possible AH's. She denies these. She is upbeat about going to today. I reviewed the case at length with Dr. Hennessy on Thursday. She underwent bilateral ECT treatment without complication.
[2017-07-13 11:55] VITALS: BP 92/55
--- NOTE | 2017-07-13 19:31 | BDS ---
[f rep st] BEHAVIORAL HEALTH DISCHARGE SUMMARY Please note this is an interval discharge summary as she had previously been under the care of Dr. Alena Catalan, who had dictated an interim discharge summary on 07/01/2017. This will summarize events since that time. History in regard to admission can be found in his summary. HOSPITAL COURSE: I took over the care of Ms Olivarez once we began ECT treatments. She underwent cou rse of 6 acute course treatments on a Thursday/Thursday/Thursday basis. We began these bilaterally, and she tolerated them well with no complications or notable cognitive interference. After the first tr eatment, she stated that her auditory hallucinations had completely resolved, and her mood was signif icantly better. After the second treatment, she stated that she is having no further thoughts of abeba cide and believed that the treatments were very helpful. She got a bit confused at one point, rikki quinn that we were only going to do 2 treatments and refused initially to do the third treatment, and so I explained to her, no, that we had agreed to do 6 treatments as a minimum, and she was compliant. She did stipulate for other court-ordered treatments as she was still in and out of catatonia at the beginning. The ECT was extremely helpful and resolved the catatonia completely. The psychosis impro linda, though it was wondered if she was still experiencing intermittent auditory hallucinations. She denied this to me at the time of discharge, but had mentioned it to her within the past week. Patient's hospital course during the ECT was uncomplicated. She improved dramatically, and we were a ble to eliminate, not only her [id number], but her suicide precautions and unit restriction. She left the unit on several occasions to go for walks with staff on accompanied grounds privileges. She also was able to visit with her children on the unit, and this was done appropriately. We had timmy waddell team meetings with her , her, me, and the healthcare technician. I was at one of these meetings when she agreed to transition to [facility] with [facility] instead of insisting on returni kai directly home. We were pleased, because we thought this was the best course of action to ensure h er stability. [facility] visited with her on July 09, and stated that they would ta ke her on July 13, after her ECT treatment. On that date, she was in good spirits, underwent ECT treatment with no complications and was ready to leave. CONDITION AT DISCHARGE: Stable. Her affect was euthymic, stable, and appropriate and she was descri rell no hallucinatory experiences or thoughts of suicide. DISCHARGE MEDICATIONS: Included Lamictal 25 mg at h.s. and lorazepam 0.5 mg at h.s. Please note that she was on initial titration of Lamictal in a standard manner, and the lorazepam was being tapered. DISCHARGE DIAGNOSES: 1. Schizoaffective disorder, bipolar type, chronic with acute exacerbation. 2. Catatonia, resolved. 3. Self injury to left forearm. 4. Anemia. 5. Dehydration. 6. Cachexia. 7. Hypotension. DISPOSITION: Patient left the hospital with [facility] staff to go to [facility]. Followup is with Dr. Hennessy and Dr. Gray at [facility]. LEGAL COURSE: Patient was placed on a short-term certification at the expiration of her hold. is was continued at the time of her discharge, being held for [facility]. The patient was given specific instructions at the time of her discharge. patient had a very positive attitude and appeared happy at the time of her discharge. Patient was a full code throughout her sta y. There were no pending labs or studies at the time of her discharge. /[id number]/MODL
== END 2017-07-13 12:35 | DRG 885 ==
LOC: BBEH 11:45
PROVIDERS: ADMIT Psychiatry & Neurology Psychiatry; ATTEND Psychiatry & Neurology Psychiatry
PROC: GZB2ZZZ Electroconvulsive Therapy, Bilateral-Single Seizure (ICD-10-PCS; principal; 2017-07-03)
DX: F25.0 Schizoaffective disorder, bipolar type (principal); R45.851 Suicidal ideations; D50.9 Iron deficiency anemia, unspecified; I95.2 Hypotension due to drugs; T43.505A Adverse effect of unspecified antipsychotics and neuroleptics, initial encounter; E86.0 Dehydration; R63.6 Underweight; L71.8 Other rosacea; I34.1 Nonrheumatic mitral (valve) prolapse; Z91.5 Personal history of self-harm; Z68.1 Body mass index [BMI] 19.9 or less, adult; Z63.5 Disruption of family by separation and divorce; Z81.8 Family history of other mental and behavioral disorders
CPT/HCPCS: J0330; J1200; J1630; J1885; J2060; J2250; J2405; J2704; J3010

== ENCOUNTER 2017-06-29 13:40 | Emergency (ER) | payer OTHER ==
--- NOTE | 2017-06-29 13:51 | EDPHY ---
H & P Stated Complaint: SENT FROM , HYPOTENSION, NOT EATING OR DRINKING Time Seen by Provider: 06/29/17 13:51 HPI/ROS: CHIEF COMPLAINT: Hypotension HISTORY OF PRESENT ILLNESS: The patient is referred to the emergency department from [address] [place] [address] after she reportedly had hypotension. This is in the setting of decreased oral intake and a single dose of lorazepam. The patient has a history of fairly refractory anorexia and psychosis. She apparently is being considered for ECT treatment. In the emergency department the patient denies any acute complaints. She denies chest pain or shortness of breath. The patient denies fever, cough or congestion. She denies any acute pain. REVIEW OF SYSTEMS: A comprehensive 10 point review of systems is otherwise negative aside from elements mentioned in the history of present illness. Source: Patient - Personal History Current Tetanus Diphtheria and Acellular Pertussis (TDAP): Unsure - Medical/Surgical History Hx Asthma: No Hx Chronic Respiratory Disease: No Hx Diabetes: No Hx Cardiac Disease: No Hx Renal Disease: No Hx Cirrhosis: No Hx Alcoholism: No Hx HIV/AIDS: No Hx Splenectomy or Spleen Trauma: No Other PMH: DENIES MEDICAL, SURGICAL, AND PSYCH HX. - Social History Smoking Status: Never smoked - Physical Exam Exam: General Appearance: Alert, no distress Eyes: Pupils equal and round no pallor or injection ENT, Mouth: Mucous membranes moist Respiratory: There are no retractions, lungs are clear to auscultation Cardiovascular: Regular rate and rhythm Gastrointestinal: Abdomen is soft and nontender, no masses, bowel sounds normal Neurological: 5/5 strength all 4 extremities Skin: Warm and dry, no rashes Musculoskeletal: Neck is supple nontender Extremities: symmetrical, full range of motion Constitutional: Initial Vital Signs Temperature (C) 36.7 C 06/29/17 13:47 Heart Rate 94 06/29/17 13:47 Respiratory Rate 16 06/29/17 13:47 Blood Pressure 96/61 L 06/29/17 13:47 O2 Sat (%) 98 06/29/17 13:47 O2 Delivery Mode Room Air Allergies/Adverse Reactions: No Known Allergies Allergy (Unverified 05/20/17 19:41) Medical Decision Making ED Course/Re-evaluation: The patient's blood pressure was 95/66 upon arrival to the emergency department. She is not tachycardic. She had an IV established. She received 1 L of normal saline. The patient's blood pressure was recheck after IV fluid rehydration. She continues to have a blood pressure of 95/65. She is not tachycardic. The patient will be transferred back to the inpatient psychiatric floor. The patient's CBC and electrolyte panels are within normal limits. The patient was re-evaluated at 3:15 p.m. and is in no acute distress. Differential Diagnosis: Differential diagnosis considered includes medication side effect, dehydration, metabolic abnormality - Data Points Laboratory Results: Laboratory Results 06/29/17 13:56 06/29/17 13:56 06/29/17 06/29/17 13:56 13:56 WBC 4.28 10^3/uL 10^3/uL (3.80-9.50) RBC 3.96 10^6/uL L 10^6/uL (4.18-5.33) Hgb 12.6 g/dL g/dL (12.6-16.3) Hct 36.8 % L % (38.0-47.0) MCV 92.9 fL fL (81.5-99.8) MCH 31.8 pg pg (27.9-34.1) MCHC 34.2 g/dL g/dL (32.4-36.7) RDW 12.9 % % (11.5-15.2) Plt Count 183 10^3/uL 10^3/uL (150-400) MPV 9.1 fL fL (8.7-11.7) Neut % (Auto) 74.5 % H % (39.3-74.2) Lymph % (Auto) 20.8 % % (15.0-45.0) Hardin % (Auto) 3.5 % L % (4.5-13.0) Eos % (Auto) 0.2 % L % (0.6-7.6) Baso % (Auto) 0.5 % % (0.3-1.7) Nucleat RBC Rel Count 0.0 % % (0.0-0.2) Absolute Neuts (auto) 3.19 10^3/uL 10^3/uL (1.70-6.50) Absolute Lymphs (auto) 0.89 10^3/uL L 10^3/uL (1.00-3.00) Absolute Monos (auto) 0.15 10^3/uL L 10^3/uL (0.30-0.80) Absolute Eos (auto) 0.01 10^3/uL L 10^3/uL (0.03-0.40) Absolute Basos (auto) 0.02 10^3/uL 10^3/uL (0.02-0.10) Absolute Nucleated RBC 0.00 10^3/uL 10^3/uL (0-0.01) Immature Gran % 0.5 % % (0.0-1.1) Immature Gran # 0.02 10^3/uL 10^3/uL (0.00-0.10) Sodium 140 mEq/L mEq/L (135-145) Potassium 3.7 mEq/L mEq/L (3.5-5.2) Chloride 104 mEq/L mEq/L (97-110) Carbon Dioxide 26 mEq/l mEq/l (22-31) Anion Gap 10 mEq/L mEq/L (8-16) BUN 23 mg/dL mg/dL (7-23) Creatinine 0.7 mg/dL mg/dL (0.6-1.0) Estimated GFR > 60 Glucose 116 mg/dL H mg/dL (70-100) Calcium 8.7 mg/dL mg/dL (8.5-10.4) Medications Given: Discontinued Medications Sodium Chloride (Ns) 1,000 mls @ 0 mls/hr IV EDNOW ONE; Wide Open PRN Reason: Protocol Stop: 06/29/17 13:53 Last Admin: 06/29/17 13:55 Dose: 1,000 mls Sodium Chloride (Ns) 1,000 mls @ 0 mls/hr IV ONCE ONE PRN Reason: Wide Open Stop: 06/29/17 14:05 Last Admin: 06/29/17 15:04 Dose: 1,000 mls Departure - Departure Disposition: [facility] IP Clinical Impression: Dehydration Condition: Good Instructions: Dehydration (ED)
[2017-06-29] MEDS ORDERED: NS 1,000 ML IV ONE ×2 (13:52→14:04)
[2017-06-29 14:06] LABS: PLATELET COUNT 183 10^3/uL (150-400)
[2017-06-29 16:54] VITALS: BP 98/58
[2017-07-03] MEDS ORDERED: PROPOFOL 200 MG/20 ML VIAL ONE (07:31)
== END 2017-06-29 16:58 ==
LOC: EDUNIT#
DX: E86.0 Dehydration (principal)
CPT/HCPCS: J2704